=== PATIENT | female | born 1940 | race Caucasian/White ===

== ENCOUNTER 2017-09-03 11:00 | Outpatient (RCR) | payer MEDICARE, SELFPAY | END 2017-09-24 11:06 | disposition home or self-care (01) | LOC: PT 11:00 | PROVIDERS: Visit Provider Specialist | DX: S43.401A Unspecified sprain of right shoulder joint, initial encounter (principal); S43.402A Unspecified sprain of left shoulder joint, initial encounter | CPT/HCPCS: 97010; 97110; 97163 ==

== ENCOUNTER 2017-12-10 11:00 | Outpatient (RCR) | payer MEDICARE, SELFPAY | END 2017-12-27 10:37 | disposition home or self-care (01) | LOC: PT 11:00 | PROVIDERS: Visit Provider Specialist | DX: M72.2 Plantar fascial fibromatosis (principal) | CPT/HCPCS: 97033; 97035; 97110; 97140; 97163; 97164 ==

== ENCOUNTER 2025-01-19 15:26 | Emergency (ER) | payer MEDICARE, SELFPAY ==
--- OUTSIDE RECORDS SUMMARY | 2024-11-23 14:30 | XMS_ITS | Encounter Summary ---
Author Organization [employer] ([place], [place], [place], [place]) Address [address] [place] [address] Care Team Providers Care Animal Nurse Name Role Phone Marilee Angeles MD Unavailable [phone] Christopher Santos APRN Primary Care Provider [phone] Reason for Referral * Consultation (Routine) - Authorized Specialty Diagnoses / Procedures Referred By Osiel garsia Referred To Contact Physical Therapy Diagnoses Neck strain Christopher Santos APRN [address] [place] [address] Phone: tel: fax: [facility] OP Physical Therapy [address] [place] [phone] Phone: tel: fax: Referral ID Status Reason Start Date Expiration Date Visits Requested Visits Authorized [id number] Authorized Specialty Services Required 11/23/2024 11/23/2025 1 1 Reason for Visit * Reason Comments Follow-up Patient is here toda y for a 3 week follow up.PHQ: 0 Encounter Details Date Type Department Care Team (Latest Contact Info) Description 11/23/2024 2:30 PM EDT Office Visit [facility] Primary Care - [facility] [address] [place] [address] Christopher Santos APRN [address] [place] [address] Polyarthropathy (Primary Dx); Muscle strain; Type 2 diabetes mellitus without complications (HCC); Chronic kidney disease, stage 3b (HCC); Gait instability; Left hip pain; Primary hypertension; Neck strain Social History Tobacco Use Types Packs/Day Years Used Date Smoking Tobacco: Never Smokeless Tobacco: Never Alcohol Use Standard Drinks/Week Comments Never 0 (1 standard drink = 0.6 oz pur e alcohol) Caffeine use Utilities Answer Date Recorded In the past 12 months, has t he electric, gas, oil, or water company threatened to shut off services in your home? No 07/26/2023 Food Insecurity Answer Date Recorded Within the past 12 months, y ou worried that your food would run out before you got money to buy more. Never true 07/26/2023 Within the past 12 months, t he food you bought just didn't last and you didn't have money to get more. Never true 07/26/2023 Transportation Needs Answer Date Record ed In the past 12 months, has l ack of reliable transportation kept you from medical appointments, meetings, work or from getting things needed for daily living? No 07/26/2023 Financial Resource Strain Answer Date R ecorded How hard is it for you to pa y for the very basics like food, housing, medical care, and heating? Would you say it is: Not hard at all 07/26/2023 Employment Answer Date Recorded Do you want help finding or keeping work or a job? I do not need or want help 07/26/2023 Family and Community Support Answer Kip e Recorded If for any reason you need h elp with day-to-day activities such as bathing, preparing meals, shopping, managing finances, etc., do you get the help you need? I get all the help I need 07/26/2023 Feeling Lonely or Isolated 0 07/25 Educational Attainment Answer Date Donis rded Do you speak a language other than Bulgarian at ho me? No 07/26/2023 Do you want help with school or training? For example, starting or completing job training or getting a high school diploma, GED or equivalent. No 07/26/2023 Physical Activity Answer Date Recorded Number of minutes of exercise per week 0 07/26/2023 Substance Use Answer Date Recorded How many times in the past y ear have you used prescription drugs for non-medical reasons? Never 07/26/2023 How many times in the past year have you used il legal drugs? Never 07/26/2023 Comments No Sex and Gender Information Value Date Recorded Sex Assigned at Female 05/29/2023 7:28 AM LOAN DOCUMENTATION SPECIALIST Legal Sex Female 5:18 PM CDT Gender Identity Female 05/29/2023 7:28 AM LOAN DOCUMENTATION SPECIALIST Sexual Orientation Not on file documented as of this encounter Last Filed Vital Signs Vital Sign Reading Time Taken Comments Blood Pressure 146/74 11/23/2024 2:21 PM EDT Pulse 84 11/23/2024 2:21 PM EDT Temperature - - Respiratory Rate - - Oxygen Saturation 97% 11/23/2024 2:21 PM EDT Inhaled Oxygen Concentration - - Weight 72.6 kg (160 lb) 11/23/2024 2:21 PM EDT Height 154.9 cm (5' 1 ) 11/23/2024 2:21 PM EDT Body Mass Index 30.23 11/23/2024 2:21 PM EDT documented in this encounter Functional Status * Over the past 2 weeks, how often have you been bothered by any of the following problems? Question Answer Date of Assessment Author Little interest or pleasure in doing things Not at all 11/23/2024 2:26 PM CDT Jace Emery Feeling down, depressed, or hopeless Not at all 11/23/2024 2:26 PM CDT Jace Emery Patient Health Questionnaire -2 Score 0 11/23/2024 2:26 PM CDT Jace Emery documented as of this encounter Progress Notes * Christopher Santos, ANA - 11/23/2024 2:30 PM EDT 11/23/2024 Subjective: Carol Rush is a 84 y.o. female. Chief Complaint Patient presents with Follow-up Patient is here today for a 3 week follow up. PHQ: 0 84-year-old white female here today with daughter for follow-up on left hip pain. We gave her a round of prednisone and ordered physical therapy. She patient states she is almost done with physical therapy. X-ray revealed mild arthritis. She reports that this is no longer an issue. She is more concerned today about some left-sided neck pain that has been going on for past week orso. States that Tylenol helps. She took some leftover tramadol and that did not help. Heating pad feels good but does not feel like it helps. She describes this pain as severe. States it is worse when she turns her head a certain way. States that physical therapy did some massaging and helped some. She voices concern over differentiating aches and pains and so to his daughter states it seems to move from 1 joint to the other they tell me that she has had several x-rays that show osteoarthritis. Current Outpatient Medications: biotin 10,000 mcg cap, Take 1 capsule by mouth daily., Disp: , Rfl: blood sugar diagnostic (glucose blood) strp, Test 2 to 4 Time A Day (Dx: E11.9)., Disp: 200 strip, Rfl: 2 cholecalciferol, vitamin D3, 50 mcg (2,000 unit) cap, Take 1 capsule (2,000 Units total) by mouth daily., Disp: , Rfl: famotidine (PEPCID) 40 MG tablet, Take 1 tablet (40 mg total) by mouth every night as needed for heartburn., Disp: 90 tablet, Rfl: 1 ferrous sulfate 137 mg (45 mg iron) TbER, Take by mouth., Disp: , Rfl: glyBURIDE (DIABETA) 2.5 MG tablet, Take 1 tablet (2.5 mg total) by mouth daily with breakfast., Disp: 90 tablet, Rfl: 1 lancets misc, Test 2 to 4 Times A Day (Dx: E11.9)., Disp: 200 each, Rfl: 2 lisinopriL (ZESTRIL) 40 MG tablet, Take 1 tablet (40 mg total) by mouth daily., Disp: 90 tablet, Rfl: 1 metoprolol succinate (TOPROL-XL) 50 MG 24 hr tablet, Take 1 tablet (50 mg total) by mouth daily., Disp: 30 tablet, Rfl: 1 multivitamin with minerals tablet, Take 1 tablet by mouth daily., Disp: , Rfl: omeprazole (PriLOSEC) 40 MG capsule, Take 1 capsule (40 mg total) by mouth Daily (0600)., Disp: 90 capsule, Rfl: 1 simvastatin (ZOCOR) 10 MG tablet, Take 1 tablet (10 mg total) by mouth nightly., Disp: 90 tablet, Rfl: 1 vit C,X-Wc-rnqxz-lutein-zeaxan (PreserVision AREDS-2) 250-90-40-1 mg Cap, Take 1 capsule by mouth 2(two) times daily., Disp: , Rfl: cyclobenzaprine (FLEXERIL) 5 MG tablet, Take 1 tablet (5 mg total) by mouth every 8 (eight) hours as needed for muscle spasms for up to 10 days., Disp: 30 tablet, Rfl: 0 diclofenac sodium 1 % gel, Apply 2 g topically 3 (three) times daily as needed (joint pain) for up to 180 days., Disp: 100 g, Rfl: 1 Review of Systems Constitutional: Negative. Respiratory: Negative. Cardiovascular: Negative. Gastrointestinal: Negative. Genitourinary: Negative. Musculoskeletal: Positive for arthralgias. Past Medical History: Diagnosis Date Allergic rhinitis Arthritis Colon cancer ([facility]) Diabetes mellitus ([facility]) Encounter for adjustment or management of cardiac device 05/07/2024 Encounter for adjustment or management of cardiac device 05/07/2024 GERD (gastroesophageal reflux disease) Hyperlipidemia Hypertension Macular degeneration Macular degeneration, wet ([facility]) Obstructive lung disease (generalized) ([facility]) 03/20/2022 Pacemaker SSS (sick sinus syndrome) ([facility]) Past Surgical History: Procedure Laterality Date ATRIAL CARDIAC PACEMAKER INSERTION cateracts SECTION CHOLECYSTECTOMY COLONOSCOPY,BIOPSY N/A 05/29/2023 Procedure: COLONOSCOPY, WITH BIOPSY; Surgeon: Guero Ocampo MD; Location: [facility]; Service: Gastroenterology; Laterality: N/A; COLONOSCOPY,POLYPECTOMY N/A 05/29/2023 Procedure: COLONOSCOPY, WITH POLYPECTOMY; Surgeon: Guero Ocampo MD; Location: [facility]; Service: Gastroenterology; Laterality: N/A; COLONOSCOPY,SUBMUCOSAL INJECTION N/A 05/29/2023 Procedure: COLONOSCOPY, WITH DIRECTED SUBMUCOSAL INJECTION; Surgeon: Guero Ocampo MD; Location: [facility]; Service: Gastroenterology; Laterality: N/A; tattoo used EYE SURGERY cataract INSERTION/REPLACEMENT,PACEMAKER ROBOTIC LAPAROSCOPY,COLECTOMY RIGHT Right 07/26/2023 Procedure: (ROBOTIC RT COLECTOMY); Surgeon: Earnest Spaulding MD; Location: [facility]; Service: General Surgery; Laterality: Right; IN, 2HRS(A), AGGIE REQUESTED SKIN CANCER EXCISION on face TUBAL LIGATION UPPER GASTROINTESTINAL ENDOSCOPY Family History Problem Relation Name Age of Onset Heart disease Mother Hypertension Mother Diabetes Mother Heart disease Father Cancer Sister Diabetes Sister reports that she has never smoked. She has never used smokeless tobacco. She reports that she does not drink alcohol and does not use drugs. Objective: BP (!) 146/74 (BP Location: Left arm, Patient Position: Sitting) Pulse 84 Ht 1.549 m (5' 1 ) Wt 72.6 kg (160 lb) SpO2 97% BMI 30.23 kg/m?? Body mass index is 30.23 kg/m??. Physical Exam Cardiovascular: Rate and Rhythm: Normal rate and regular rhythm. Pulmonary: Effort: Pulmonary effort is normal. Breath sounds: Normal breath sounds. Musculoskeletal: Comments: Left sided neck paravertebral muscle TTP Neurological: Mental Status: She is alert. No results found for this visit on 11/23/24 (from the past 24 hours). Assessment: Problem List Items Addressed This Visit Cardiovascular and Mediastinum Hypertension (Chronic) Other Visit Diagnoses Polyarthropathy - Primary Relevant Medications diclofenac sodium 1 % gel Other Relevant Orders Vitamin D, 25-Hydroxy TSH T4, free MURALI w/Reflex Rheumatoid factor Ab, reflex to titer Sedimentation rate CCP ANTIBODIES Muscle strain Type 2 diabetes mellitus without complications (HCC) (Chronic) Relevant Orders CBC With Diff/Platelet Comprehensive metabolic panel Hemoglobin A1c Microalbumin / creatinine urine ratio Lipid panel Chronic kidney disease, stage 3b (HCC) (Chronic) Gait instability Left hip pain Neck strain Relevant Medications cyclobenzaprine (FLEXERIL) 5 MG tablet Other Relevant Orders AMB REFERRAL TO PHYSICAL THERAPY EVALUATE, TREAT AND PLAN OF CARE Ordered her routine labs and ordered autoimmune workup. Offered to send her in some more tramadol she states that this did not help her anyways that Tylenol helps her more I also sent her in some diclofenac gel to try she has not tried that for this certain pain. Will send another referral to physical therapy for her left-sided neck strain. Return for Next Scheduled Follow Up. Christopher Santos APRN documented in this encounter Miscellaneous Notes * Addendum Note - Christopher Santos APRN - 11/23/2024 2:30 PM EDTAddended by: CHRISTOPHER SANTOS on: 11/23/2024 03:14 PM Modules accepted: Orders documented in this encounter Plan of Treatment Upcoming Encounters Date Type Department Care Team (Late st Contact Info) Description 03/01/2025 10:00 AM EST Appointment [facility] Ultrasound [address] [place] [address] Guero Ocampo MD [address] [facility] [address] [place] [address] 03/23/2025 10:30 AM EST Office Visit [facility] Gastroenterology [address] [place] [address] Guero Ocampo MD [address] [facility] [address] [place] [address] 04/19/2025 1:45 PM EST Office Visit [facility] Primary Care - [facility] [address] [place] [phone] Christopher Santos APRN [address] [place] [address] 07/19/2025 11:00 AM EDT Office Visit [facility] Cardiology - [place] [address] [place] [address] Silverio Victor MD [address] [facility] [address] [place] [address] Scheduled Referrals Name Type Priority Associated Diagnoses Orde r Schedule AMB REFERRAL TO PHYSICAL THERAPY EVALUATE, TREAT AND PLAN OF CARE Outpatient Referral Routine Neck strain Expected: 11/23/2024, Expires: 11/23/2025 documented as of this encounter Procedures Procedure Name Priority Date/Time Associated Diagnosis Comments MICROALBUMIN / CREATININE URINE RATIO Routine 11/27/2024 1:38 PM EDT Type 2 diabetes mellitus without complications (HCC) VITAMIN D, 25-HYDROXY Routine 11/27/2024 1:38 PM EDT Polyarthropathy SEDIMENTATION RATE Routine 11/27/2024 1: 38 PM EDT Polyarthropathy TSH Routine 11/27/2024 1:38 PM EDT Polyarthropathy T4, FREE Routine 11/27/2024 1:38 PM EDT Polyarthropathy HEMOGLOBIN A1C Routine 11/27/2024 1:38 PM EDT Type 2 diabetes mellitus without complications (HCC) LIPID PANEL Routine 11/27/2024 1:38 PM EDT Type 2 diabetes mellitus without complications (HCC) COMPREHENSIVE METABOLIC PANEL Routine 11/27/2024 1:38 PM EDT Type 2 diabetes mellitus without complications (HCC) documented in this encounter Results * (ABNORMAL) Sedimentation rate (11/27/2024 1:38 PM EDT) Sed Rate 51(H) 0 - 30 mm/HR 11/27/2024 2:22 PM EDT [facility] Blood Venipuncture / Unknown 11/27/2024 1:38 PM EDT 11/27/2024 1:39 PM EDT Christopher Santos APRN LAB BLOOD ORDERABLES Final Result [facility] [address] [place] [address] [phone] * T4, free (11/27/2024 1:38 PM EDT) Free T4 0.95 0.70 - 1.48 ng/dL 11/28/2024 12:16 AM EDT [facility] Blood Venipuncture / Unknown 11/27/2024 1:38 PM EDT 11/27/2024 1:39 PM EDT Christopher Rajan PEREZ LAB BLOOD ORDERABLES Final Result Performing Organization Address [facility]/ZIP Co de Phone Number [facility] [address] [place], [place] [address] [phone] * TSH (11/27/2024 1:38 PM EDT) TSH 0.607 0.360 - 3.740 uIU/mL 11/27/2024 2:32 PM EDT [facility] Blood Venipuncture / Unknown 11/27/2024 1:38 PM EDT 11/27/2024 1:39 PM EDT Narrative [facility] - 11/27/2024 2:32 PM EDT Biotin supplements can cause clinically significant incorrect lab test results. The FDA has seen an increase in the number of reported adverse events related to biotin interference with lab tests. Christopher Rajan PEREZ LAB BLOOD ORDERABLES Final Result Performing Organization Address [facility] Co de Phone Number [facility] [address] [place] [address], [facility] [phone] * (ABNORMAL) Vitamin D, 25-Hydroxy (11/27/2024 1:38 PM EDT) Vitamin D 25-Hydroxy 81.56(H) 30 - 80 ng/mL 11/28/2024 12:16 AM EDT [facility] Blood Venipuncture / Unknown 11/27/2024 1:38 PM EDT 11/27/2024 1:39 PM EDT Christopher Rajan PEREZ LAB BLOOD ORDERABLES Final Result Performing Organization Address City/[facility]/ZIP Co de Phone Number [facility] [address] [place], [place] [address] [phone] * (ABNORMAL) Lipid panel (11/27/2024 1:38 PM EDT) Triglycerides 154(H) 15 - 150 mg/dL 11/27/2024 2:32 PM EDT [facility] Cholesterol 151 50 - 200 mg/dL 11/27/2024 2:32 PM EDT [facility] Comment: 200 to 239 mg/dL = Moderate (borderline) >239 mg/dL = High HDL Cholesterol 54 40 - 60 mg/dL 11/27/2024 2:32 PM EDT [facility] Comment: >=60 mg/dL = Desirable <40 mg/dL = Increased Risk All other components are listed individually or are calculations VLDL Cholesterol 30.8 mg/dL 11/28/19 25 2:32 PM EDT [facility] Cholesterol/HDL ratio 2.8 mg/dL 11/27/2024 2:32 PM EDT [facility] LDl/HDL Ratio 1 11/27/2024 2:32 PM EDT [facility] LDL Cholesterol, Calculated 66 mg/dL 11/27/2024 2:32 PM EDT [facility] Blood Venipuncture / Unknown 11/27/2024 1:38 PM EDT 11/27/2024 1:39 PM EDT Christopher Santos APRN LAB BLOOD ORDERABLES Final Result [facility] [address] [id number] [phone] * Microalbumin / creatinine urine ratio (11/27/2024 1:38 PM EDT) Creatinine, Ur 76.00 47.00 - 110.00 mg/dL 11/27/2024 11:46 PM EDT [facility] Microalbumin, Urine <5 See Comments mg/L 11/27/2024 11:46 PM EDT [facility] Comment:No normal reference ranges established for random urine. Microalbumin Creatinine Ratio, Random <7 0 - 30 mg/g 11/27/2024 11:46 PM EDT [facility] Urine URINE SPECIMEN COLLECTION, CLEAN CATCH / Unknown 11/27/2024 1:38 PM EDT 11/27/2024 1:39 PM EDT Christopher Santos APRN URINE ORDERABLES Final Res ult Performing Organization Address [facility] Co de Phone Number [facility] [address] [phone] * (ABNORMAL) Hemoglobin A1c (11/27/2024 1:38 PM EDT) Hemoglobin A1C 6.2(H) 4.0 - 5.6 % 11/27/2024 11:45 PM EDT [facility] Comment: Hemoglobin A1C levels are related to mean glucose during the preceding 2-3 months. Less than 7% demonstrates glycemic control in diabetic patients. Hemoglobin AlC % Suggested Diagnosis > or = 6.5 Diabetic 5.7 - 6.4 Prediabetic <5.7 Non-diabetic eAVG Glucose 131.24(H) 70 - 126 mg/dL 11/27/2024 11:45 PM EDT [facility] Blood Venipuncture / Unknown 11/27/2024 1:38 PM EDT 11/27/2024 1:39 PM EDT Christopher Santos SUBWAY OPERATOR LAB BLOOD ORDERABLES Final Result Performing Organization Address [facility] Co de Phone Number [facility] [address] [phone] * (ABNORMAL) Comprehensive metabolic panel (11/27/2024 1:38 PM EDT) Sodium 140 136 - 145 meq/L 11/27/2024 2:32 PM EDT [facility] Potassium 4.3 3.5 - 5.1 meq/L 11/27/2024 2:32 PM EDT [facility] Chloride 108(H) 98 - 107 meq/L 11/27/2024 2:32 PM EDT [facility] CO2 28 21 - 32 meq/L 11/27/2024 2:32 PM EDT [facility] Calcium 8.9 8.5 - 10.1 mg/dL 11/27/2024 2:32 PM EDT [facility] Glucose 117(H) 74 - 100 mg/dL 11/27/2024 2:32 PM EDT [facility] BUN 38(H) 7 - 18 mg/dL 11/27/2024 2:32 PM EDT [facility] Creatinine 1.24(H) 0.55 - 1.10 mg/dL 11/27/2024 2:32 PM EDT [facility] BUN/Creatinine 31 11/27/2024 2:32 PM EDT [facility] Albumin 2.8(L) 3.4 - 5.0 g/dL 11/27/2024 2:32 PM EDT [facility] Alkaline Phosphatase 154(H) 46 - 116 U/L 11/27/2024 2:32 PM EDT [facility] ALT 45 12 - 78 U/L 11/27/2024 2:32 PM EDT [facility] AST 37 15 - 37 U/L 11/27/2024 2:32 PM EDT [facility] Total Bilirubin 0.4 0.2 - 1.0 mg/dL 11/27/2024 2:32 PM EDT [facility] Protein, Total 6.7 6.4 - 8.2 gm/dL 11/27/2024 2:32 PM EDT [facility] Anion Gap 8(L) 11 - 22 11/27/2024 2:32 PM EDT [facility] A/G Ratio 0.7 11/27/2024 2:32 PM EDT [facility] Globulin 3.9 g/dL 11/27/2024 2:32 PM EDT [facility] Osmolality Calc 289.5 mOsm/kg 2:32 PM EDT [facility] eGFR (mL/min/1.73m2) 43(L) >=60 mL/min/1.7 3m2 11/27/2024 2:32 PM EDT [facility] Comment:ESTIMATED GFR IS NOT ACCURATE CREATININE CLEARANCE IN PREDICTING GLOMERULAR FILTRATION RATE. ESTIMATED GFR IS NOT APPLICABLE FOR DIALYSIS PATIENTS. Blood Venipuncture / Unknown 11/27/2024 1:38 PM EDT 11/27/2024 1:39 PM EDT us Christopher Santos SUBWAY OPERATOR LAB BLOOD ORDERABLES Final Result [facility] [address] [id number], [facility] [phone] documented in this encounter Visit Diagnoses Diagnosis Polyarthropathy- Primary Unspecified polyarthropathy or polyarthritis, site unspecified Muscle strain Unspecified site of sprain and strain Type 2 diabetes mellitus without complications (HCC) Chronic kidney disease, stage 3b (HCC) Gait instability Abnormality of gait Left hip pain Pain in joint, pelvic region and thigh Primary hypertension Unspecified essential hypertension Neck strain documented in this encounter Care Teams Animal Nurse Relationship Specialty Start Date End Date Christopher Santos APRN [address] [place] [address] PCP - General Family Medicine 07/15/24 Marilee Angeles MD [address] [place] [address] [place], [place] [id number] Medical Oncologist Hematology and Oncology 08/19/23 documented as of this encounter
--- OUTSIDE RECORDS SUMMARY | 2024-11-27 15:00 | XMS_ITS | Encounter Summary ---
Author Organization [employer] ([place], [place], [place], [place]) Address [address] [place] [address] Care Team Providers Care Mine Expert Name Role Phone Marilee Angeles MD Unavailable [phone] Keisha Tolentino APRN Primary Care Provider [phone] Encounter Details Date Type Department Care Team (Latest Contact Info) Description 11/27/2024 3:00 PM EDT Lab Patient Walk-In [facility] [address] [place] [phone] Elevated alkaline phosphatase level (Primary Dx) Social History Tobacco Use Types Packs/Day Years Used Date Smoking Tobacco: Never Smokeless Tobacco: Never Alcohol Use Standard Drinks/Week Comments Never 0 (1 standard drink = 0.6 oz pur e alcohol) Caffeine use Utilities Answer Date Recorded In the past 12 months, has t he ttwick, gas, oil, or water company threatened to [...] Do you speak a language other than Greenlandic at [facility]? No 07/26/2023 Do you want help with [...] Sex Assigned at Female 05/29/2023 7:28 AM MUSIC ARTIST Legal Sex Female 5:18 PM CDT Gender Identity Female 05/29/2023 7:28 AM MUSIC ARTIST Sexual Orientation Not on file documented as of this encounter Miscellaneous Notes * Result Encounter Note - Jace Emery - 11/27/2024 3:00 PM EDT Patient informed of results during clinic encounter/telephone encounter. Patient stated that she will do the B-12 Folate and SPEP labs. documented in this encounter Plan of Treatment Upcoming Encounters Date Type Department Care Team (Late st Contact Info) Description 03/01/2025 10:00 AM EST Appointment [facility] Ultrasound [address] [place] [address] Guero Ocampo MD [address] [facility] [address] [place] [address] 03/23/2025 10:30 AM EST Office Visit [facility] Gastroenterology [address] [place] [address] Guero Ocampo MD [address] [facility] [address] [place] [address] 04/19/2025 1:45 PM EST Office Visit [facility] Primary Care - [facility] [address] [place] [address] Keisha Tolentino APRN [address] [place] [address] 07/19/2025 11:00 AM EDT Office Visit [facility] Cardiology - [place] [address] [place] [phone] Silverio Victor MD [address] [facility] [address] [place] [address] documented as of this encounter Procedures Procedure Name Priority Date/Time Associated Diagnosis Comments SEDIMENTATION RATE Routine 11/27/2024 1: 38 PM EDT Polyarthropathy T4, FREE Routine 11/27/2024 1:38 PM EDT Polyarthropathy TSH Routine 11/27/2024 1:38 PM EDT Polyarthropathy LIPID PANEL Routine 11/27/2024 1:38 PM EDT Type 2 diabetes mellitus without complications (HCC) MICROALBUMIN / CREATININE URINE RATIO Routine 11/27/2024 1:38 PM EDT Type 2 diabetes mellitus without complications (HCC) HEMOGLOBIN A1C Routine 11/27/2024 1:38 PM EDT Type 2 diabetes mellitus without complications (HCC) COMPREHENSIVE METABOLIC PANEL Routine 11/27/2024 1:38 PM EDT Type 2 diabetes mellitus without complications (HCC) VITAMIN D, 25-HYDROXY Routine 11/27/2024 1:38 PM EDT Polyarthropathy CYCLIC CITRULLINATED PEPTIDE (CCP) IGG/A (SENDOUT) Routine 11/27/2024 1:38 PM EDT Elevated alkaline phosphatase level CBC W/ AUTO DIFF Routine 11/27/2024 1:38 PM EDT Elevated alkaline phosphatase level RHEUMATOID FACTOR(SENDOUT) Routine 11/27/2024 1:38 PM EDT Elevated alkaline phosphatase level MURALI REFLEXIVE PROFILE(SENDOUT) Routine 11/27/2024 1:38 PM EDT Elevated alkaline phosphatase level documented in this encounter Results * Cyclic Citrullinated Peptide (CCP) IgG/A (SENDOUT) (11/27/2024 1:38 PM EDT) [facility] Cyclic Citrullinated Peptide Ab, IgG/A 6 0 - 19 Units 11/29/2024 4:26 AM EDT [employer] Comment: INTERPRETIVE INFORMATION: Cyclic Citrullinated Peptide Ab, IgG/A 19 Units or less ................... Negative 20-39 Units ........................ Weak Positive 40-59 Units ........................ Moderate Positive 60 Units or greater ................ Strong Positive A positive result for cyclic citrullinated peptide (CCP) antibodies in conjunction with consistent clinical features may be suggestive of rheumatoid arthritis (RA). Anti-CCP, IgG/IgA antibodies are present in about 66-74 percent of RA patients and have specificities of 96-99 percent. Detection of IgA antibodies in addition to the usual IgG antibodies enhances the sensitivity due to some RA patients having IgA antibodies to CCP in the absence of IgG. These autoantibodies may be present in the preclinical phase of disease, are associated with future RA development, and may predict radiographic joint destruction. Patients with weak positive results should be monitored and testing repeated. Performed By: [employer] [address] [place] [address] Educational Program Director: Jacinto Wolfe MD, PhD CLIA Number: [id number] Blood Venipuncture / Unknown 11/27/2024 1:38 PM EDT 11/27/2024 1:39 PM EDT Keisha Tolentino APRN LAB BLOOD ORDERABLES Final Result Performing Organization Address [facility] de Phone Number [address] [phone] * Rheumatoid Factor(SENDOUT) (11/27/2024 1:38 PM EDT) Pathologist [facility] Rheumatoid Factor <10 0 - 14 IU/mL 11/29/2024 2:31 AM EDT [employer] Comment: Performed By: [facility] [address] [place] [address] Educational Program Director: Jacinto Wolfe MD, PhD CLIA Number: [id number] Blood Venipuncture / Unknown 11/27/2024 1:38 PM EDT 11/27/2024 1:39 PM EDT Keisha Tolentino APRN LAB BLOOD ORDERABLES Final Result Performing Organization Address [facility] de Phone Number [address] [phone] * MURALI Reflexive Profile(SENDOUT) (11/27/2024 1:38 PM EDT) Anti-Nuclear Ab (MURALI), IgG by SANTIAGO None Detected None Detected 11/29/2024 6:02 AM EDT [employer] Comment: No Anti-Nuclear Antibodies (MURALI) detected by SANTIAGO. The Extractable Nuclear Antigen Antibodies (CONTINUOUS IMPROVEMENT INTERN, Sharif, SSA 52, SSA 60, Scleroderma, Osiris-1 and SSB) and Double Stranded DNA (dsDNA) Antibody, IgG will not be performed. If suspicion of connective tissue disease is strong, and MURALI is negative by [facility]ANTIAG[facility], consider testing for MURALI by IFA ([id number]). INTERPRETIVE INFORMATION: Anti-Nuclear Antibodies (MURALI), IgG by [facility]ANTI[facility] Antinuclear Antibodies (MURALI), IgG by SANTIAGO: MURALI specimens are screened using enzyme-linked immunosorbent assay (SANTIAGO) methodology. All [facility]ANTIAGO results reported as Detected are further tested by indirect fluorescent assay (IFA) using HEp-2 substrate with an IgG-specific conjugate. The MURALI SANTIAGO screen is designed to detect antibodies against dsDNA, histones, SS-A (Ro), SS-B (La), Sharif, Sharif/CONTINUOUS IMPROVEMENT INTERN, Scl-70, Osiris-1, centromeric proteins, other antigens extracted from the HEp-2 cell nucleus. MURALI SANTIAGO assays have been reported to have lower sensitivities than MURALI IFA for systemic autoimmune rheumatic diseases (SARD). Negative results do not necessarily rule out SARD. Performed By: [facility] [address] [place] [address] Educational Program Director: Jacinto Wolfe MD, PhD CLIA Number: [id number] Blood Venipuncture / Unknown 11/27/2024 1:38 PM EDT 11/27/2024 1:39 PM EDT Keisha Tolentino APRN LAB BLOOD ORDERABLES Final Result [employer] [address] [place] [address], [facility] [phone] * (ABNORMAL) CBC with automated diff (11/27/2024 1:38 PM EDT) WBC 5.2 4.8 - 10.8 K/ L 11/27/2024 1:57 PM EDT [facility] RBC 3.18(L) 3.50 - 5.20 M/ L 11/27/2024 1:57 PM EDT [facility] Hemoglobin 11.1(L) 11.7 - 15.8 GM/DL 11/27/2024 1:57 PM EDT [facility] Hematocrit 33.9(L) 35.0 - 47.0 % 11/27/2024 1:57 PM EDT [facility] MCV 107(H) 81 - 101 fL 11/27/2024 1:57 PM EDT [facility] MCH 34.9(H) 27.0 - 34.0 pg 11/27/2024 1:57 PM EDT [facility] MCHC 32.7 32.0 - 36.0 GM/DL 11/27/2024 1:57 PM EDT [facility] RDW 12.8 11.5 - 14.5 % 11/27/2024 1:57 PM EDT [facility] Platelets 113(L) 150 - 400 K/CU MM 11/27/2024 1:57 PM EDT [facility] MPV 10.4 9.4 - 12.4 fL 11/27/2024 1:57 PM EDT [facility] Nucleated Red Blood Cell 0.0 0 - 0.2 % 11/27/2024 1:57 PM EDT [facility] % Neutros 40 37 - 80 % 11/27/2024 1:57 PM EDT [facility] % Lymphs 45 10 - 50 % 11/27/2024 1:57 PM EDT [facility] % Monos 9 5 - 13 % 11/27/2024 1:57 PM EDT [facility] % Eos 4 0 - 7 % 11/27/2024 1:57 PM EDT [facility] % Baso 1 0 - 3 % 11/27/2024 1:57 PM EDT [facility] NRBC Absolute <0.01 0 - 0.012 K/ul 11/27/2024 1:57 PM EDT [facility] # Neutros 2.09 2.00 - 6.90 K/ L 11/27/2024 1:57 PM EDT [facility] # Lymphs 2.35 0.60 - 3.40 K/ L 11/27/2024 1:57 PM EDT [facility] # Monos 0.48 0.00 - 0.90 K/ L 11/27/2024 1:57 PM EDT [facility] # Eos 0.21 0.00 - 0.70 K/ L 11/27/2024 1:57 PM EDT [facility] # Baso 0.03 0.00 - 0.20 K/ L 11/27/2024 1:57 PM EDT [facility] Immature Granulocytes-Re lative 0.40 % 11/27/2024 1:57 PM EDT [facility] # IG 0.02(H) 0.00 - 0.00 K/uL 11/27/2024 1:57 PM EDT [facility] Blood Venipuncture / Unknown 11/27/2024 1:38 PM EDT 11/27/2024 1:39 PM EDT Narrative [facility] - 11/27/2024 1:57 PM EDT When CBC w/ Auto Diff is ordered the lab will add a Manual Differential as a quality check at no additional charge if: Lymphocytes greater than seventy five percent with normal or increased WBC Monocytes greater than Fifteen percent Basophil greater than four percent Bands >10% or several immature myeloids are seen on scan Blast? Flag noted Atypical Lymph flag noted us Keisha Tolentino WAREHOUSE SHIPPING CLERK LAB BLOOD ORDERABLES Final Result [facility] [address] [place] [address], [facility] [phone] documented in this encounter Visit Diagnoses Diagnosis Elevated alkaline phosphatase level- Primary documented in this encounter Care Teams Mine Expert Relationship Specialty Start Date End Date Keisha Tolentino APRN [address] [place] [address] PCP - General Family Medicine 07/15/24 Marilee Angeles MD [address] [place] [address] Medical Oncologist Hematology and Oncology 08/19/23 documented as of this encounter
--- OUTSIDE RECORDS SUMMARY | 2024-11-30 15:15 | XMS_ITS | Encounter Summary ---
Author Organization [employer] ([place], [place], [place], [place]) Address [address] [place] [address] Care Team Providers Care Mercantile Agent Name Role Phone Marilee Angeles MD Unavailable [phone] Keisha Tolentino APRN Primary Care Provider [phone] Reason for Visit * Consultation (Routine) - Closed Specialty Diagnoses / Procedures Referred By Osiel garsia Referred To Contact Physical Therapy Diagnoses Left hip pain Gait instability Keisha Tolentino APRN [address] [place] [address] Phone: tel: fax: [facility] Physical Therapy [address] [place] [phone] Phone: tel: fax: Referral ID Status Reason Start Date Expiration Date V isits Requested Visits Authorized [id number] Closed Specialty Services Required 11/19/2024 12/31/2024 12 12 Encounter Details Date Type Department Care Team (Late st Contact Info) Description 11/30/2024 3:15 PM EDT Treatment [facility] Physical Therapy [address] [place] [phone] Konrad Haynes PT Left hip pain (Primary Dx); Gait instability Social History Tobacco Use Types Packs/Day Years [...] Do you speak a language other than Peruvian at [facility]? 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 Outpatient Physical Therapy Treatment Note 11/30/2024 Time In: 1513 Time Out: 1559 Carol Rush 1940 84 y.o. 1. Left hip pain 2. Gait instability Referring Physician: Keisha Tolentino APRN Insurance: Payor: [employer] - MEDICARE MGD CARE / Plan: UHC MEDICARE ADVANTAGE / Product Type: *No Product type* / SUBJECTIVE Patient reports her neck is feeling much better after going to the doctor and was given a topical medication to rub on the muscles. She notes she continues to have no pain in her L hip. Pain: 0/10 OBJECTIVE INTERVENTIONS Therapeutic Exercise Sets x Repetitions Weight/Resistance Cues/Comments HEP Squats with UE Support 3 x 10 [x] Heel Raises 3 x 10 Step Ups (B) 2 x 10 6 [address] Hip [address] (B) 15x LAQ (B) 3 x 10 2# Hamstring Curls (B) 3 x 10 RTB Balance at Jemstep 2 x 30 sec each Feet together, EO, head turns (vert/horiz), foam surface Feet together, EC, foam surface Marching, EO, foam surface SLS, EO, solid surface [] NuStep 10 min Level 6 [] Walking Balance 2 laps each Side stepping with ball pass Backwards walking With and without cognitive tasks [] Obstacle Course 4 laps Navigating over holguin ropes places on the ground Walking forwards and side stepping With and without cognitive tasks [] Ambulating while Bouncing Ball 2 laps Small green physioball With and without cognitive tasks [] Upper Trap Stretch 3 x 15 sec [] Gait belt and CGA with all walking balance activities ASSESSMENT Patient began the session on the NuStep for BLE strengthening and CV effects. Patient then performed exercises to improve BLE strength and proprioception. Therex was progressed by increasing repetitions for exercises including heel raises, LAQ and hamstring curls for improved BLE strengthening. Resistance was also increased for LAQ for improved quad strengthening. Patient also tolerated performing step ups onto a 6 inch step compared to a 4 inch step. Patient tolerated overall treatment with mild difficulty and no reports of increased pain. She reported feeling fatigued at the end of the session. Will continue to progress as tolerated. Patient will continue to benefit from skilled physical t herapy services to return to premorbid mobility, strength and overall function. PLAN Interventions: Continue Therapeutic Exercise (41530), Therapeutic Activity (69860), and Neuromuscular Re-education (29957) Prognosis: Good Patient requires follow-up: Yes Total Treatment (min): 46' Timed Treatment (min): Therapeutic Exercise (16829) 45 minutes Electronically signed: Konrad Haynes PT 11/30/2024, 4:00 PM documented in this encounter Plan of Treatment Upcoming Encounters Date Type Department Care Team (Late st Contact Info) Description 03/01/2025 10:00 AM EST Appointment [facility] Ultrasound [address] [place] [address] Guero Ocampo MD [address] [facility] [address] [place] [address] 03/23/2025 10:30 AM EST Office Visit [facility] Gastroenterology [address] [facility] [address] [place] [address] Guero Ocampo MD [address] [address] 04/19/2025 1:45 PM EST Office Visit [facility] Primary Care - [facility] [address] [place] [address] Keisha Tolentino APRN [address] [place] [address] 07/19/2025 11:00 AM EDT Office Visit [facility] Cardiology - [place] [address] [place] [phone] Silverio Victor MD [address] [facility] [address] [place] [address] documented as of this encounter Visit Diagnoses Diagnosis Left hip pain- Primary Pain in joint, pelvic region and thigh Gait instability Abnormality of gait documented in this encounter Care Teams Mercantile Agent Relationship Specialty Start Date End Date Keisha Tolentino APRN [address] [place] [address] PCP - General Family Medicine 07/15/24 Marilee Angeles MD [address] [place] [address] Medical Oncologist Hematology and Oncology 08/19/23 documented as of this encounter
--- OUTSIDE RECORDS SUMMARY | 2024-12-04 13:45 | XMS_ITS | Encounter Summary ---
Author Organization [employer] ([place], [place], [place], [place]) Address [address] [place] [address] Care Team Providers Care Director Of Casework Department Name Role Phone Marilee Angeles MD Unavailable [phone] Keisha Tolentino APRN Primary Care Provider [phone] Reason for Visit * Consultation (Routine) - Closed Specialty Diagnoses / Procedures Referred By Osiel garsia Referred To Contact Physical Therapy Diagnoses Left hip pain Gait instability Keisha Tolentino APRN [address] [place] [address] Phone: tel: fax: [facility] OP Physical Therapy [address] [place] [address] Phone: tel: fax: Referral ID Status Reason Start Date Expiration Date V isits Requested Visits Authorized [id number] Closed Specialty Services Required 11/19/2024 12/31/2024 12 12 Encounter Details Date Type Department Care Team (Late st Contact Info) Description 12/04/2024 1:45 PM EDT Treatment [facility] OP Physical Therapy [address] [place] [phone] Konrad Haynes PT Left hip pain [...] Do you speak a language other than [place]ese at [facility]? 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 Outpatient Physical Therapy Progress Note 12/04/2024 Time In: 1350 Time Out: 1437 Carol Rush 1940 84 y.o. 1. Left hip pain 2. Gait instability Referring Provider: Keisha Tolentino APRN Insurance: Payor: [employer] - MEDICARE MGD CARE / Plan: [employer]HC MEDICARE ADVANTAGE / Product Type: *No Product type* / SUBJECTIVE Patient reports she is feeling fair today. She woke up having some back pain but this went away after taking some tylenol. Pain: 0/10 Symptoms since onset: Improved OBJECTIVE Test/Measurements Hip ROM (degrees) LEFT RIGHT External Rotation 43 44 Internal Rotation 22 24 Strength Hip LEFT RIGHT Flexion 4-/5 4-/5 Abduction 4-/5 4-/5 ADDuction 4/5 4/5 External Rotation 4/5 4/5 Gait Weight bearing status: Full Assistive Device Used: None at this Time Assist Level: Independent Functional Outcome Measure: LEFS: 60/80 30 sec STS: 8 reps with hands on knees FGA: 18/30 INTERVENTIONS Therapeutic Exercise Sets x Repetitions Weight/Resistance Cues/Comments HEP Squats with UE Support 3 x 10 [x] Heel Raises 3 x 10 Step Ups (B) 2 x 10 6 inch Standing Hip 3 Way (B) 15x LAQ (B) 3 x 10 2# Hamstring Curls (B) 3 x 10 RTB Balance at Startapp 2 x 30 sec each Feet together, EO, head turns (vert/horiz), foam surface Feet together, EC, foam surface Marching, EO, foam surface SLS, EO, solid surface [] NuStep 8 min Level 6 [] Walking Balance 2 laps each Side stepping, forwards and backwards walking with ball pass With and without cognitive tasks [] Obstacle Course 4 laps Navigating over holguin ropes places on the ground Walking forwards and side stepping With and without cognitive tasks [] Ambulating while Bouncing Ball 2 laps Small green physioball With and without cognitive tasks [] Upper Trap Stretch 3 x 15 sec [] Gait belt and CGA with all walking balance activities Total Treatment (min): 47' Timed Treatment (min): Therapeutic Exercise (00899) 10 minutes Neuromuscular Re-education (08943) 20 minutes ASSESSMENT Patient is continuing to make steady improvements towards PT goals. Patient's bilateral hip ROM hasimproved for both IR and ER. Patient does note her L hip does feel more stiff during IR compared tothe R but it is better compared to her first visit. Patient's bilateral hip strength has also improved for flexion and L hip ER but still demonstrates the most weakness with bilateral hip abduction. Patient's LEFS has improved from 40/80 at her initial eval to 60/80, indicating a significant improvement in subjective LE function for completing ADLs. Patient also demonstrated a significant improvement in her 30 sec STS test as she completed 9 repetitions using BUE for assistance at her eval and was able to perform 8 repetitions with her hands on her knees today. Patient's FGA has also improvedfrom 13/30 at her initial eval to 18/30 today. This is still below the cut off score of 22/30, indicating she is at an increased risk of falls. Patient has continued to tolerate treatments with mild difficulty and no reports of increased pain. She completed walking balance tasks with multitasking activities and cognitive tasks to improve her ability to ambulate around her home and in the community. Will continue to progress as tolerated. Patient will continue to benefit from skilled physical therapy services to return to premorbid mobility, strength and overall function. PLAN Carol Rush requires skilled physical therapy services to address the below stated problems/goals, using Therapeutic Exercise (92887), Therapeutic Activity (09660), Gait Training (69955), Manual Therapy (19437), and Neuromuscular Re- education (36188). Skilled intervention required to decrease pain, increase range of motion, increase strength, improve balance, improve motor control, improve functional mobility, learn home exercise program, and return to premorbid state. Prognosis: Good Problems: Pain Decreased ROM Decreased strength Tenderness to palpation Gait deficits Decreased balance Decreased functional mobility Patient Goal: Decreased Pain Improve Mobility Improve Strength Improve Ambulation Improve Balance/Decrease Falls Resume ADL's w/o Symptoms Return to Prior Activity Level Learn Home Exercise Program Patient Education: Eval results/Plan of Care, Disease Process, Body mechanics, Fall prevention, Safety precautions, HEP, Pt/CG verbalized understanding, Pt/CG asked approp questions, Pt/CG demonstrated carry-over, and Handouts provided [employer] Consultant Goals: Patient will improve FGA score to 22/30 for decreased risk of falls and to demonstrate improved balance when ambulating in the community in 12 weeks. (Not Met, Progressin/30) Patient will complete 11 repetitions without BUE support on the 30 sec STS for improved functional endurance and mobility of her BLE for completing household tasks in 12 weeks. (Not Met, Progressin reps) Patient will improve tandem stance with the RLE in front time to 15 seconds for improved ability towalk in narrow spaces such as between the bed and the wall in her house in 12 weeks. (Not assessed today) Patient will demonstrate 4+/5 bilateral hip flexion and abduction strength for improved strength for getting into and out of her car in 12 weeks. (Not Met, Progressing: see objective above) Patient will report worst L hip pain as 4/10 for improved ability to sleep at night in 12 weeks. (Goal Met) Patient will be independent with discharge home exercise program to improve self-care ADL's and household ADL's. (Not Met, Progressing throughout POC) Plan of Care Certification Date: 11/05/2024 - 01/27/2025 Frequency/Duration: 2x/Week for 12 weeks Electronically signed by: Konrad Haynes PT 12/04/2024, 3:08 PM documented in this encounter Plan of Treatment Upcoming Encounters Date Type Department Care Team (Late st Contact Info) Description 03/01/2025 10:00 AM EST Appointment [facility] Ultrasound [address] [place] [phone] Guero Ocampo MD [address] [facility] [address] [place] [address] 03/23/2025 10:30 AM EST Office Visit [facility] Gastroenterology [address] [place] [address] Guero Ocampo MD [address] [facility] [address] [place] [address] 04/19/2025 1:45 PM EST Office Visit [facility] Primary Care - [facility] [address] [place] [address] Keisha Tolentino APRN [address] [place] [address] 07/19/2025 11:00 AM EDT Office Visit [facility] Cardiology - [place] [address] [place] [address] Silverio Victor MD [address] [facility] [address] [place] [address] documented as of this encounter Visit Diagnoses Diagnosis Left hip pain- Primary Pain in joint, pelvic region and thigh Gait instability Abnormality of gait documented in this encounter Care Teams Director Of Casework Department Relationship Specialty Start Date End Date Keisha Tolentino APRN [address] [place] [address] PCP - General Family Medicine 07/15/24 Marilee Angeles MD [facility] [address] [address] Medical Oncologist Hematology and Oncology 08/19/23 documented as of this encounter
--- OUTSIDE RECORDS SUMMARY | 2024-12-07 07:40 | XMS_ITS | Encounter Summary ---
Author Organization [facility] Address [address] [place] [address] Care Team Providers Care Forest Manager Name Role Phone Dre William MD Primary Care Provider [phone] Encounter Details Date Type Department Care Team (Late st Contact Info) Description 12/07/2024 7:40 AM EDT Ancillary Procedure [facility] [address] [place] [address] Social History Tobacco Use Types Packs/Day Years Used Date Smoking Tobacco: Never Passive Smoke Exposure: Never Smokeless Tobacco: Never Alcohol Use Standard Drinks/Week Comments No 0 (1 standard drink = 0.6 oz pur e alcohol) Comments Unknown Sex and Gender Information Value Date Recorded Sex Assigned at Not on file Legal Sex Female 7:52 PM EDT Gender Identity Not on file Sexual Orientation Not on file documented as of this encounter Plan of Treatment Upcoming Encounters Date Type Department Care Team (Late st Contact Info) Description 02/08/2025 12:45 PM EDT Procedure Visit [facility] [address] [place] [address] King Sánchez MD [address] [address] documented as of this encounter Procedures Procedure Name Priority Date/Time Associated Diagnosis Comments OCT, RETINA - OU - BOTH EYES Routine 12/07/2024 1:08 PM EDT Exudative age-related macular degeneration of both eyes with active choroidal neovascularization (CMS/HCC) documented in this encounter Results * OCT, Retina - OU - Both Eyes (12/07/2024 1:08 PM EDT) Anatomical Region Laterality Modality Head Optical Coherenc e Tomography Narrative 12/07/2024 1:08 PM EDT Right Eye Quality was good. Scan locations included subfoveal. Progression has been stable. Left Eye Quality was good. Scan locations included subfoveal. Progression has been stable. Notes Right eye central FVPED with resolved Subretinal Hyper Reflective material, improved IRF, several drusen and reticular drusen. Left eye (OS) Several drusen and reticular drusen, resolved Intraretinal fluid, increased Subretinal Hyper Reflective material Both eyes (OU) Incomplete outer retinal atrophy King Sánchez MD OPHTH TOMOGRAPHY Final Result documented in this encounter Visit Diagnoses Not on filedocumented in this encounter Additional Health Concerns Assessment Noted Time A fall risk assessment has been complete d for the patient 10/20/2024 9:12 AM EDT A Body Mass Index follow-up plan has been documented for the patient 12/07/2024 1:20 PM EDT documented as of this encounter Care Teams Forest Manager Relationship Specialty Start Date End Date rDe William MD [address] [place] [address] PCP - General 08/26/20 documented as of this encounter
--- OUTSIDE RECORDS SUMMARY | 2024-12-07 12:45 | XMS_ITS | Encounter Summary ---
Author Organization [facility] Address [address] [place] [address] Care Team Providers Care Stroke Coordinator Name Role Phone Dre William MD Primary Care Provider [phone] Reason for Referral * Clinic-Administered Medication (Routine) - Authorized Specialty Diagnoses / Procedures Referred By Osiel garsia Referred To Contact Diagnoses Exudative age-related macular degeneration of both eyes with active choroidal neovascularization (CMS/HCC) Procedures WI INJECTION, AFLIBERCEPT HD, 1 MG King Sánchez MD [address] [address] Phone: tel: fax: Referral ID Status Reason Start Date Expiration Date V isits Requested Visits Authorized [id number] Authorized 12/07/2024 06/08/202605 08 * Clinic-Administered Medication (Routine) - Authorized Specialty Diagnoses / Procedures Referred By Osiel garsia Referred To Contact Diagnoses Exudative age-related macular degeneration of both eyes with active choroidal neovascularization (CMS/HCC) Procedures WI INJECTION, AFLIBERCEPT HD, 1 MG King Sánchez MD [address] [place] [phone] Phone: tel: fax: Referral ID Status Reason Start Date Expiration Date V isits Requested Visits Authorized [id number] Authorized 12/07/2024 06/08/2026 24 Encounter Details Date Type Department Care Team (Latest Contact Info) Description 12/07/2024 12:45 PM EDT Procedure Visit [facility] [address] [place] [address] King Sánchez MD [address] [place] [address] Exudative age-related macular degeneration of both eyes with active choroidal neovascularization (CMS/HCC) (Primary Dx); Branch retinal vein occlusion of left eye with macular edema; Pseudophakia of both eyes Social History Tobacco Use Types Packs/Day Years [...] as of this encounter Miscellaneous Notes * Progress Notes - King Sánchez MD - 12/07/2024 12:45 PM EDT Visit Diagnosis: 1. Exudative age-related macular degeneration of both eyes with active choroidal neovascularization(CMS/HCC) OCT, Retina - OU - Both Eyes, Intravitreal Injection, Pharmacologic Agent - OU - Both Eyes, Aflibercept (Eylea HD) intravitreal injection 8 mg, Aflibercept (Eylea HD) intravitreal injection8 mg 2. Branch retinal vein occlusion of left eye with macular edema 3. Pseudophakia of both eyes Clinic Note: Carol Rush is a 84 y.o. female who presents to the clinic today for the follow up of Right eye (OD) Exudative age-related macular degeneration (AMD) - FVPED with Subretinal Hyper Reflective material without Intraretinal fluid or subretinal fluid (SRF) - Leakage noted on intravenous fluorescein angiography (IVFA) 03/25/23 - status post (s/p) multiple IntraVitreal Avastin, last 01/13/24, - status post (s/p) multiple Intravitreal Eylea last 06/30/24 - status post (s/p) Intravitreal Eylea HD 09/01/24, 10/20/24 - visual acuity (VA) 20/80-->20/60 (stable) - OCT no fluid, Choroidal Neovascular Membrane - right eye (OD) Intravitreal Eylea HD done at 7 weeks - Xtend to 9 weeks Left eye (OS) Exudative age-related macular degeneration (AMD) Left eye (OS) Branch Retinal Vein Occlusion - Drusen and Pseudodrusen, iORA - Intravenous fluorescein angiography (IVFA) 01/13/24 showed leakage - status post (s/p) IntraVitreal Avastin 01/13/24 - status post (s/p) multiple Intravitreal Eylea last 09/01/24 - status post (s/p) Intravitreal Eylea HD 10/20/24 - visual acuity (VA) reduced to 20/60 - OCT improved Subretinal Hyper Reflective material, no Intraretinal fluid, ? Choroidal NeovascularMembrane - left eye (OS) Intravitreal Eylea HD done at 7 weeks - Xtend to 9 weeks Follow up in about 9 weeks (around 02/08/2025) for Dilated Exam OU, OCT, Injection. Patient expressed understanding of the diagnoses, plan, and follow up. Thanks for involving Retina / Ocular Oncology services at [facility] in the care. Tobacco Cessation Initiative: Tobacco Use: Low Risk (12/07/2024) Patient History Smoking Tobacco Use: Never Smokeless Tobacco Use: Never Passive Exposure: Never The patient has been counseled on tobacco cessation: Not Applicable documented in this encounter Plan of Treatment Upcoming Encounters Date Type Department Care Team (Late st Contact Info) Description 02/08/2025 12:45 PM EDT Procedure Visit [facility] [address] [place] [address] King Sánchez MD [address] [address] documented as of this encounter Procedures Procedure Name Priority Date/Time Associated Diagnosis Comments INTRAVITREAL INJECTION, PHARMACOLOGIC AGENT - OU - BOTH EYES Routine 12/07/2024 1:20 PM EDT Exudative age-related macular degeneration of both eyes with active choroidal neovascularization (CMS/HCC) OCT, RETINA - OU - BOTH EYES Routine 12/07/2024 1:08 PM EDT Exudative age-related macular degeneration of both eyes with active choroidal neovascularization ([facility]/HCC) documented in this encounter Results * Intravitreal Injection, Pharmacologic Agent - OU - Both Eyes (12/07/2024 1:20 PM EDT) Anatomical Region Laterality Modality Head Other Narrative 12/07/2024 1:20 PM EDT Time Out 12/07/2024. 1:19 PM. Confirmed correct patient, procedure, site, and patient consented. Anesthesia Right Eye Topical anesthesia was used. Anesthetic medications included Proparacaine 0.5%. Left Eye Topical anesthesia was used. Anesthetic medications included Proparacaine 0.5%. Procedure Right Eye Preparation included 5% betadine to ocular surface. A 30 gauge needle was used. Injection: 8 mg Aflibercept 8 MG/0.07ML Route: Intravitreal, Site: Right Eye NDC: 67451-801-56, Lot: [id number], Expiration date: 06/12/2025, Waste: 0 mL Left Eye Preparation included 5% betadine to ocular surface. A 30 gauge needle was used. Injection: 8 mg Aflibercept 8 MG/0.07ML Route: Intravitreal, Site: Left Eye NDC: 50434-333-57, Lot: [id number], Expiration date: 07/13/2025, Waste: 0 mL Post-op Right Eye Post injection exam found visual acuity of at least counting fingers. The patient tolerated the procedure well. There were no complications. The patient received written and verbal post procedure care education. Post injection medications were not given. Left Eye Post injection exam found visual acuity of at least counting fingers. The patient tolerated the procedure well. There were no complications. The patient received written and verbal post procedure care education. Post injection medications were not given. Notes King Sánchez MD OPHTH CLINIC PROCEDURES Final R esult * OCT, Retina - OU - Both [...] Result documented in this encounter Visit Diagnoses Diagnosis Exudative age-related macular degeneration of both eyes with active choroidal neovascularization (CMS/HCC)- Primary Branch retinal vein occlusion of left eye with macular edema Pseudophakia of both eyes Lens replaced by other means documented in this encounter Administered Medications Inactive Administered Medications - up to 3 most recent administrations Medication Order MAR Action Action Date Dose Rate Site Aflibercept (Eylea HD) intravitreal injection 8 mg 8 mg, Intravitreal, Once PRN Procedure, 1 dose, Starting on Sat12/07/24 at 1320, Until Sat12/07/24 at 1320, RoutineIndications:Exudative age-related macular degeneration of both eyes with active choroidal neovascularization (CMS/HCC) Given 12/07/2024 1:20 PM EDT 8 mg Right Eye Aflibercept (Eylea HD) intravitreal injection 8 mg 8 mg, Intravitreal, Once PRN Procedure, 1 dose, Starting on 12/07/24 at 1320, Until Sat12/07/24 at 1320, RoutineIndications:Exudative age-related macular degeneration of both eyes with active choroidal neovascularization (CMS/HCC) Given 12/07/2024 1:20 PM EDT 8 mg Left Eye documented in this encounter Additional Health Concerns Assessment Noted Time A fall risk assessment has been complete d for the patient 10/20/2024 9:12 AM EDT A Body Mass Index follow-up plan has been documented for the patient 12/07/2024 1:20 PM EDT documented as of this encounter Care Teams Stroke Coordinator Relationship Specialty Start Date End Date Dre William MD [address] [place] [address] PCP - General 08/26/20 documented as of this encounter
--- OUTSIDE RECORDS SUMMARY | 2024-12-09 15:15 | XMS_ITS | Encounter Summary ---
Author Organization [employer] ([place], [place], [place], [place]) Address [address] [place] [address] Care Team Providers Care Canvas Goods Fabricator Name Role Phone Marilee Angeles MD Unavailable [phone] Keisha Tolentino APRN Primary Care Provider [phone] Reason for Visit * Consultation (Routine) - Closed Specialty Diagnoses / Procedures Referred By Osiel garsia Referred To Contact Physical Therapy Diagnoses Left hip pain Gait instability Keisha Tolentino APRN [address] [place] [address] Phone: tel: fax: [facility] OP Physical Therapy [address] [place] [address] Phone: tel: fax: Referral ID Status Reason Start Date Expiration Date V isits Requested Visits Authorized [id number] Closed Specialty Services Required 11/19/2024 12/31/2024 12 12 Encounter Details Date Type Department Care Team (Late st Contact Info) Description 12/09/2024 3:15 PM EDT Treatment [facility] OP Physical Therapy [address] [place] [phone] Konrad Haynes PT Left hip pain [...] speak a language other than Bulgarian at [facility]? No 07/26/2023 Do you want help [...] Sex Assigned at Female 05/29/2023 7:28 AM CLASSROOM COORDINATOR Legal Sex Female 5:18 PM CDT Gender Identity Female 05/29/2023 7:28 AM CLASSROOM COORDINATOR Sexual Orientation Not on file documented as of this encounter Progress Notes * Konrad Haynes, PT - 12/09/2024 3:15 PM EDT Images from the original note were not included. Outpatient Physical Therapy Treatment Note 12/09/2024 Time In: 1514 Time Out: 1607 Carol Rush 1940 84 y.o. 1. Left hip pain 2. Gait instability Referring Physician: Keisha Tolentino APRN Insurance: Payor: UNITED HE[employer] - MEDICARE MGD CARE / Plan: UHC MEDICARE ADVANTAGE / Product Type: *No Product type* / SUBJECTIVE Patient notes her L hip has been bothering her today. Pain: 1-2/10 OBJECTIVE INTERVENTIONS Therapeutic Exercise Sets x Repetitions Weight/Resistance Cues/Comments HEP STS 3 x 5 To chair, hands on knees [x] Heel Raises 3 x 10 Step Ups (B) 2 x 10 6 inch Standing Hip 3 Way (B) 20x LAQ (B) 3 x 10 2# Hamstring Curls (B) 3 x 10 GTB Balance at [employer] 2 x 30 sec each Feet together, [...] Patient then performed exercises to improve BLE strength. Therex was progressed by increasing repetitions for standing hip 3 way in addition to increasing resistance for hamstring curls to improve bilateral hip strength and stability. Squats with UE support were progressed to having patient perform STS without UE assistance. She was able to perform 3 x 5 and reported feeling very fatigued after this. Patient toleratedoverall treatment with mild difficulty and minimal reports of increased pain. Will continue to progress as tolerated. Patient will continue to benefit from skilled physical therapy services to returnto premorbid mobility, strength and overall function. PLAN Interventions: Continue Therapeutic Exercise (61758), Therapeutic Activity (85970), and Neuromuscular Re-education (76787) Prognosis: Good Patient requires follow-up: Yes Total Treatment (min): 53' Timed Treatment (min): Therapeutic Exercise (56020) 48 minutes Electronically signed: Konrad Haynes PT 12/09/2024, 9:21 PM documented in this encounter Plan of Treatment Upcoming Encounters Date Type Department Care Team (Late st Contact Info) Description 03/01/2025 10:00 AM EST Appointment [facility] Ultrasound [address] [place] [phone] Guero Ocampo MD [address] [facility] [address] [place] [address] 03/23/2025 10:30 AM EST Office Visit [facility] Gastroenterology [address] [place] [address] Guero Ocampo MD [address] [facility] [address] [place] [address] 04/19/2025 1:45 PM EST Office Visit [facility] Primary Care - [facility] [address] [place] [address] Keisha Tolentino APRN [address] [place] [address] 07/19/2025 11:00 AM EDT Office Visit [facility] Cardiology - [place] [address] [place] [address] Silverio Victor MD [address] [facility] [address] [place] [address] documented as of this encounter Visit Diagnoses Diagnosis Left hip pain- Primary Pain in joint, pelvic region and thigh Gait instability Abnormality of gait documented in this encounter Care Teams Canvas Goods Fabricator Relationship Specialty Start Date End Date Keisha Tolentino APRN [address] [place] [address] PCP - General Family Medicine 07/15/24 Marilee Angeles MD [facility] [address] [address] Medical Oncologist Hematology and Oncology 08/19/23 documented as of this encounter
--- OUTSIDE RECORDS SUMMARY | 2024-12-11 13:00 | XMS_ITS | Encounter Summary ---
Author Organization [employer] ([place], [place], [place], [place]) Address [address] [place] [address] Care Team Providers Care Fibreglass Gun Hand Name Role Phone Marilee Angeles MD Unavailable [phone] Keisha Tolentino APRN Primary Care Provider [phone] Reason for Visit * Consultation (Routine) - Closed Specialty Diagnoses / Procedures Referred By Osiel garsia Referred To Contact Physical Therapy Diagnoses Left hip pain Gait instability Keisha Tolentino APRN [address] [place] [address] Phone: tel: fax: [facility] OP Physical Therapy [address] [place] [address] Phone: tel: fax: Referral ID Status Reason Start Date Expiration Date V isits Requested Visits Authorized [id number] Closed Specialty Services Required 11/19/2024 12/31/2024 12 12 Encounter Details Date Type Department Care Team (Late st Contact Info) Description 12/11/2024 1:00 PM EDT Treatment [facility] OP Physical Therapy [address] [place] [phone] Konrad Haynes PT Left hip pain [...] Do you speak a language other than Surinamese at [facility]? No 07/26/2023 Do you want help with [...] Sex Assigned at Female 05/29/2023 7:28 AM BIOMEDICAL MANAGER Legal Sex Female 5:18 PM CDT Gender Identity Female 05/29/2023 7:28 AM BIOMEDICAL MANAGER Sexual Orientation Not on file documented as of this encounter Progress Notes * Konrad Haynes, PT - 12/11/2024 1:00 PM EDT Images from the original note were not included. Outpatient Physical Therapy Treatment Note 12/11/2024 Time In: 1302 Time Out: 1402 Carol Rush 1940 84 y.o. 1. Left hip pain 2. Gait instability Referring Physician: Keisha Tolentino APRN Insurance: Payor: UNITED HEALTHCARE - MEDICARE MGD CARE / Plan: UHC MEDICARE ADVANTAGE / Product Type: *No Product type* / SUBJECTIVE Patient reports her L hip pain is an 8-9/10 when she is walking today. She notes she has the most pain when putting weight on her heel. Pain: 8-9/10 OBJECTIVE INTERVENTIONS Therapeutic Exercise Sets x Repetitions Weight/Resistance Cues/Comments HEP STS 3 x 5 To chair, hands on knees [x] Heel Raises 2 x 10 Step Ups (B) 2 x 10 6 inch Standing Hip 3 Way (B) 20x LAQ (B) 2 x 10 2# Hamstring Curls (B) 2 x 10 GTB SLR (B) 2 x 10 BKFO 2 x 10 RTB Hip Adduction Squeeze 2 x 10 Bridges 2 x 10 LTR 2 x 10 Balance at [employer] 2 x 30 sec each Feet together, [...] then performed exercises to improve BLE strength. Exercises including SLR, BKFO, bridges and hip adduction squeezes were added for bilateral hip strengthening for improved stability around the joint. LTR were added to improve lumbar and hip mobility. Patient tolerated overall treatment with mild difficulty and minimal reports of increased pain. She reported feeling fatigued at the end of the session. Will continue to progress as tolerated. Patient will continue to benefit from skilled physical therapy services to return to premorbid mobility, strength and overall function. PLAN Interventions: Continue Therapeutic Exercise (52573), Therapeutic Activity (41657), and Neuromuscular Re-education (63107) Prognosis: Good Patient requires follow-up: Yes Total Treatment (min): 60' Timed Treatment (min): Therapeutic Exercise (38381) 60 minutes Electronically signed: Konrad Haynes PT 12/11/2024, 2:05 PM documented in this encounter Plan of Treatment Upcoming Encounters Date Type Department Care Team (Late st Contact Info) Description 03/01/2025 10:00 AM EST Appointment [facility] Ultrasound [address] [place] [address] Guero Ocampo MD 227 [facility] [address] [place] [address] 03/23/2025 10:30 AM EST Office Visit [facility] Gastroenterology [address] [facility] [address] [place] [address] Guero Ocampo MD [address] [address] 04/19/2025 1:45 PM EST Office Visit [facility] Primary Care - [facility] [address] [place] [address] Keisha Tolentino APRN [address] [place] [address] 07/19/2025 11:00 AM EDT Office Visit [facility] Cardiology - [place] [address] [place] [address] Silverio Victor MD [address] [address] documented as of this encounter Visit Diagnoses Diagnosis Left hip pain- Primary Pain in joint, pelvic region and thigh Gait instability Abnormality of gait documented in this encounter Care Teams Fibreglass Gun Hand Relationship Specialty Start Date End Date Keisha Tolentino APRN [address] [place] [address] PCP - General Family Medicine 07/15/24 Marilee Angeles MD [address] [facility] [address] [place] [address] Medical Oncologist Hematology and Oncology 08/19/23 documented as of this encounter
--- OUTSIDE RECORDS SUMMARY | 2024-12-15 15:15 | XMS_ITS | Encounter Summary ---
Author Organization [employer] ([place], [place], [place], [place]) Address [address] [place] [address] Care Team Providers Care Disbursing Officer Name Role Phone Marilee Angeles MD Unavailable Keisha Tolentino APRN Primary Care Provider [phone] Reason for Visit * Consultation (Routine) - Closed Specialty Diagnoses / Procedures Referred By Osiel garsia Referred To Contact Physical Therapy Diagnoses Left hip pain Gait instability Keisha Tolentino APRN [address] [place] [address] Phone: tel: fax: [facility] OP Physical Therapy [address] [place] [phone] Phone: tel: fax: Referral ID Status Reason Start Date Expiration Date V isits Requested Visits Authorized [id number] Closed Specialty Services Required 11/19/2024 12/31/2024 12 12 Encounter Details Date Type Department Care Team (Late st Contact Info) Description 12/15/2024 3:15 PM EDT Treatment [facility] OP Physical Therapy [address] [place] [phone] Konrad Haynes PT Left hip pain [...] Do you speak a language other than Kuwaiti at [facility]? No 07/26/2023 Do you want help [...] Sex Assigned at Female 05/29/2023 7:28 AM CUFF TURNER MACHINE OPERATOR Legal Sex Female 5:18 PM CDT Gender Identity Female 05/29/2023 7:28 AM CUFF TURNER MACHINE OPERATOR Sexual Orientation Not on file documented as of this encounter Progress Notes * Konrad Haynes, PT - 12/15/2024 3:15 PM EDT Images from the original note were not included. Outpatient Physical Therapy Treatment Note 12/15/2024 Time In: 1515 Time Out: 1611 Carol Rush 1940 84 y.o. 1. Left hip pain 2. Gait instability Referring Physician: Keisha Tolentino APRN Insurance: Payor: UNITED HEALTHCARE - MEDICARE MGD CARE / Plan: UHC MEDICARE ADVANTAGE / Product Type: *No Product type* / SUBJECTIVE Patient reports her L hip is feeling better. She has the most pain after sitting for a prolonged period of time and getting up to walk. Pain: 2-3/10 OBJECTIVE INTERVENTIONS Therapeutic Exercise Sets x Repetitions Weight/Resistance Cues/Comments HEP STS 3 x 5 To chair, hands on knees [x] Heel Raises 2 x 10 Step Ups (B) 2 x 10 6 inch Standing Hip 3 Way (B) 20x LAQ (B) 2 x 10 3# Hamstring Curls (B) 2 x 10 GTB SLR (B) 2 x 10 BKFO 2 min RTB Hip Adduction Squeeze 2 min Bridges 2 x 10 LTR 2 min Balance at [employer] 2 x 30 sec each Feet together, [...] performed exercises to improve BLE strength. Exercises were continued from last session to improve exercise tolerance. An increase in repetitions were performed for LTR, BKFO and hip adduction squeeze. Resistance was increased for LAQ for quad strengthening. Patient tolerated overall treatment with mild difficulty and minimal reports of increased pain. She reported feeling fatigued at the end of the session. Will continue to progress as tolerated. Patient will continue to benefit from skilled physical therapy services to return to premorbid mobility, strength and overall function. PLAN Interventions: Continue Therapeutic Exercise (61574), Therapeutic Activity (53747), and Neuromuscular Re-education (06861) Prognosis: Good Patient requires follow-up: Yes Total Treatment (min): 56' Timed Treatment (min): Therapeutic Exercise (08487) 56 minutes Electronically signed: Konrad Haynes PT 12/15/2024, 4:13 PM documented in this encounter Plan of Treatment Upcoming Encounters Date Type Department Care Team (Late st Contact Info) Description 03/01/2025 10:00 AM EST Appointment [facility] Ultrasound [address] [place] [address] Guero Ocampo MD [address] [facility] [address] [place] [address] 03/23/2025 10:30 AM EST Office Visit [facility] Gastroenterology [address] [facility] [address] [place] [address] Guero Ocampo MD [address] [facility] [address] [place] [address] 04/19/2025 1:45 PM EST Office Visit [facility] Primary Care - [facility] [address] [place] [address] Keisha Tolentino APRN [address] [place] [address] 07/19/2025 11:00 AM EDT Office Visit [facility] Cardiology - [place] [address] [place] [address] Silverio Victor MD [address] [facility] [address] [place] [address] documented as of this encounter Visit Diagnoses Diagnosis Left hip pain- Primary Pain in joint, pelvic region and thigh Gait instability Abnormality of gait documented in this encounter Care Teams Disbursing Officer Relationship Specialty Start Date End Date Ericbrennan Keisha, SURVEY SUPERINTENDENT [address] [place] [address] PCP - General Family Medicine 07/15/24 Marilee Angeles MD [address] [place] [address] Medical Oncologist Hematology and Oncology 08/19/23 documented as of this encounter
--- OUTSIDE RECORDS SUMMARY | 2024-12-18 15:15 | XMS_ITS | Encounter Summary ---
Author Organization [employer] ([place], [place], [place], [place]) Address [address] [place] [address] Care Team Providers Care Skein Tier Name Role Phone Marilee Angeles MD Unavailable [phone] Keisha Tolentino APRN Primary Care Provider [phone] Reason for Visit * Consultation (Routine) - Closed Specialty Diagnoses / Procedures Referred By Osiel garsia Referred To Contact Physical Therapy Diagnoses Left hip pain Gait instability Keisha Tolentino APRN [address] [place] [address] Phone: tel: fax: [facility] OP Physical Therapy [address] [place] [phone] Phone: tel: fax: Referral ID Status Reason Start Date Expiration Date V isits Requested Visits Authorized [id number] Closed Specialty Services Required 11/19/2024 12/31/2024 12 12 Encounter Details Date Type Department Care Team (Late st Contact Info) Description 12/18/2024 3:15 PM EDT Treatment [facility] OP Physical Therapy [address] [place] [phone] Konrad Haynes PT Left hip pain [...] Do you speak a language other than French at [facility]? No 07/26/2023 Do you want help [...] Sex Assigned at Female 05/29/2023 7:28 AM EDUCATIONAL/DEVELOPMENT ASSISTANT Legal Sex Female 5:18 PM CDT Gender Identity Female 05/29/2023 7:28 AM EDUCATIONAL/DEVELOPMENT ASSISTANT Sexual Orientation Not on file documented as of this encounter Progress Notes * Konrad Haynes, PT - 12/18/2024 3:15 PM EDT Images from the original note were not included. Outpatient Physical Therapy Treatment Note 12/18/2024 Time In: 1515 Time Out: 1620 Carol Rush 1940 84 y.o. 1. Left hip pain 2. Gait instability Referring Physician: Keisha Tolentino APRN Insurance: Payor: UNITED HEALTHCARE - MEDICARE MGD CARE / Plan: UHC MEDICARE ADVANTAGE / Product Type: *No Product type* / SUBJECTIVE Patient reports her L hip is continuing to feel better. She notes it mainly hurts when sitting or laying in bed. Pain: 0/10 OBJECTIVE INTERVENTIONS Therapeutic Exercise Sets x Repetitions Weight/Resistance Cues/Comments HEP STS 2 x 10 To chair, hands on knees [x] Heel Raises 3 x 10 Step Ups (B) 2 x 10 6 inch Not today Standing Hip 3 Way (B) 20x LAQ (B) 3 x 10 3# Hamstring Curls (B) 3 x 10 GTB SLR (B) 3 x 10 BKFO 2 min RTB Hip Adduction Squeeze 2 min Bridges 2 x 10 LTR 2 min Balance at [employer] 2 x 30 sec each Feet together, [...] performed exercises to improve BLE strength and she performed an increased amount of all of these today compared to last session. Patient tolerated overall treatment with mild difficulty and no reports of increased pain. She reported feeling very fatigued at the end of the session. Will continue to progressas tolerated. Patient will continue to benefit from skilled physical therapy services to return to premorbid mobility, strength and overall function. PLAN Interventions: Continue Therapeutic Exercise (45190), Therapeutic Activity (29431), and Neuromuscular Re-education (25511) Prognosis: Good Patient requires follow-up: Yes Total Treatment (min): 65' Timed Treatment (min): Therapeutic Exercise (58022) 60 minutes Electronically signed: Konrad Haynes PT 12/18/2024, 4:22 PM documented in this encounter Plan of Treatment Upcoming Encounters Date Type Department Care Team (Late st Contact Info) Description 03/01/2025 10:00 AM EST Appointment [facility] Ultrasound [address] [place] [address] Guero Ocampo MD [address] [facility] [address] [place] [address] 03/23/2025 10:30 AM EST Office Visit [facility]enterology [address] [place] [address] Guero Ocampo MD [address] [facility] [address] [place], [place] [address] 04/19/2025 1:45 PM EST Office Visit [facility] Primary Care - [facility] [address] [place] [address] Keisha Tolentino APRN [address] [place] [address] 07/19/2025 11:00 AM EDT Office Visit [facility] Cardiology - [place] [address] [place] [address] Silverio Victor MD [address] [facility] [address] [place] [address] documented as of this encounter Visit Diagnoses Diagnosis Left hip pain- Primary Pain in joint, pelvic region and thigh Gait instability Abnormality of gait documented in this encounter Care Teams Skein Tier Relationship Specialty Start Date End Date Keisha Tolentino APRN [address] [place] [address] PCP - General Family Medicine 07/15/24 Marilee Angeles MD [address] [place], [place] [address] Medical Oncologist Hematology and Oncology 08/19/23 documented as of this encounter
--- OUTSIDE RECORDS SUMMARY | 2024-12-23 14:45 | XMS_ITS | Encounter Summary ---
Author Organization [employer] ([place], [place], [place], [place]) Address [address] [place] [address] Care Team Providers Care Motor Vehicle Dispatcher Name Role Phone Marilee Angeles MD Unavailable [phone] Keisha Tolentino APRN Primary Care Provider [phone] Reason for Visit * Consultation (Routine) - Closed Specialty Diagnoses / Procedures Referred By Osiel garsia Referred To Contact Physical Therapy Diagnoses Left hip pain Gait instability Keisha Tolentino APRN [address] [place] [address] Phone: tel: fax: [facility] OP Physical Therapy [address] [place] [phone] Phone: tel: fax: Referral ID Status Reason Start Date Expiration Date V isits Requested Visits Authorized [id number] Closed Specialty Services Required 11/19/2024 12/31/2024 12 12 Encounter Details Date Type Department Care Team (Late st Contact Info) Description 12/23/2024 2:45 PM EDT Treatment [facility] OP Physical Therapy [address] [place] [phone] Konrad Haynes PT Left hip pain [...] speak a language other than French at [facility]? No 07/26/2023 Do you want help with [...] Sex Assigned at Female 05/29/2023 7:28 AM HUMAN RESOURCES COMPENSATION ANALYST Legal Sex Female 5:18 PM CDT Gender Identity Female 05/29/2023 7:28 AM HUMAN RESOURCES COMPENSATION ANALYST Sexual Orientation Not on file documented as of this encounter Progress Notes * Konrad Haynes, PT - 12/23/2024 2:45 PM EDT Images from the original note were not included. Outpatient Physical Therapy Treatment Note 12/23/2024 Time In: 1443 Time Out: 1536 Carol Rush 1940 84 y.o. 1. Left hip pain 2. Gait instability Referring Physician: Keisha Tolentino APRN Insurance: Payor: UNITED HEALTHCARE - MEDICARE MGD CARE / Plan: UHC MEDICARE ADVANTAGE / Product Type: *No Product type* / SUBJECTIVE Patient reports she is feeling better now compared to earlier this morning. She notes her blood pressure was a little lower than normal this morning. Pain: 0/10 OBJECTIVE INTERVENTIONS Therapeutic Exercise Sets x Repetitions Weight/Resistance Cues/Comments HEP STS 2 x 10 To chair, hands on knees [x] Heel Raises 3 x 10 Step Ups (B) 2 x 10 6 inch Standing Hip 3 Way (B) 20x LAQ (B) 3 x 10 3# Hamstring Curls (B) 3 x 10 GTB SLR (B) 3 x 10 *try adding 1# next session BKFO 2 min GTB Hip Adduction Squeeze 2 min Bridges 3 x 10 LTR 2 min Balance at [employer] 2 x 30 sec each Feet together, [...] the NuStep for BLE strengthening and CV effects followed by exercises to strengthening the BLE. Therex was progressed by increasing resistance for BKFO. She also performed an increased amount of repetitions for bridges for posterior chain strengthening. Patient tolerated overall treatment with mild difficulty and no reports of increased pain. She reported feeling veryfatigued at the end of the session. Will continue to progress as tolerated. Patient will continue to benefit from skilled physical therapy services to return to premorbid mobility, strength and overall function. PLAN Interventions: Continue Therapeutic Exercise (22350), Therapeutic Activity (60599), and Neuromuscular Re-education (35561) Prognosis: Good Patient requires follow-up: Yes Total Treatment (min): 53' Timed Treatment (min): Therapeutic Exercise (30845) 53 minutes Electronically signed: Konrad Haynes PT 12/23/2024, 3:38 PM documented in this encounter Plan of Treatment Upcoming Encounters Date Type Department Care Team (Late st Contact Info) Description 03/01/2025 10:00 AM EST Appointment [facility] Ultrasound [address] [place] [address] Guero Ocampo MD [address] [address] 03/23/2025 10:30 AM EST Office Visit [facility] Gastroenterology [address] [facility] [address] [place] [address] Guero Ocampo MD [address] [address] 04/19/2025 1:45 PM EST Office Visit [facility] - [facility] [address] [place] [address] Keisha Tolentino APRN [address] [place] [address] 07/19/2025 11:00 AM EDT Office Visit [facility] Cardiology - [place] [address] [place] [address] Silverio Victor MD [address] [address] documented as of this encounter Visit Diagnoses Diagnosis Left hip pain- Primary Pain in joint, pelvic region and thigh Gait instability Abnormality of gait documented in this encounter Care Teams Motor Vehicle Dispatcher Relationship Specialty Start Date End Date Keisha Tolentino APRN [address] [place] [address] PCP - General Family Medicine 07/15/24 Marilee Angeles MD [address] [place] [address] Medical Oncologist Hematology and Oncology 08/19/23 documented as of this encounter
--- OUTSIDE RECORDS SUMMARY | 2024-12-25 14:30 | XMS_ITS | Encounter Summary ---
Author Organization [employer] ([place], [place], [place], [place]) Address [address] [place] [address] Care Team Providers Care Lead Technical Architect Name Role Phone Marilee Angeles MD Unavailable [phone] Keisha Tolentino APRN Primary Care Provider [phone] Reason for Visit * Consultation (Routine) - Closed Specialty Diagnoses / Procedures Referred By Osiel garsia Referred To Contact Physical Therapy Diagnoses Left hip pain Gait instability Keisha Tolentino APRN [address] [place] [address] Phone: tel: fax: [facility] OP Physical Therapy [address] [place] [phone] Phone: tel: fax: Referral ID Status Reason Start Date Expiration Date V isits Requested Visits Authorized [id number] Closed Specialty Services Required 11/19/2024 12/31/2024 12 12 Encounter Details Date Type Department Care Team (Late st Contact Info) Description 12/25/2024 2:30 PM EDT Treatment [facility] OP Physical Therapy [address] [place] [phone] Konrad Haynes PT Left hip pain [...] Do you speak a language other than Fijian at [facility]? No 07/26/2023 Do you want help with [...] Sex Assigned at Female 05/29/2023 7:28 AM FOUNDRY EQUIPMENT MECHANIC Legal Sex Female 5:18 PM CDT Gender Identity Female 05/29/2023 7:28 AM FOUNDRY EQUIPMENT MECHANIC Sexual Orientation Not on file documented as of this encounter Progress Notes * Konrad Haynes, PT - 12/25/2024 2:30 PM EDT Images from the original note were not included. Outpatient Physical Therapy Treatment Note 12/25/2024 Time In: 1415 Time Out: 1514 Carol Rush 1940 84 y.o. 1. Left hip pain 2. Gait instability Referring Physician: Keisha Tolentino APRN Insurance: Payor: UNITED HEALTHCARE - MEDICARE MGD CARE / Plan: UHC MEDICARE ADVANTAGE / Product Type: *No Product type* / SUBJECTIVE Patient reports she is feeling good today and has no pain in her hip. Pain: 0/10 OBJECTIVE INTERVENTIONS Therapeutic Exercise Sets x Repetitions Weight/Resistance Cues/Comments HEP STS 2 x 10 To chair, hands on knees [x] Heel Raises 3 x 10 Step Ups (B) 2 x 10 [address] Hip [address] (B) 20x LAQ (B) 3 x 10 3# Hamstring Curls (B) 3 x 10 GTB SLR (B) 2 x 10 1# BKFO 2 min GTB Hip Adduction Squeeze 2 min Bridges 3 x 10 LTR 1 min Balance at [employer] 2 x 30 sec each Feet together, EO, head turns (vert/horiz), foam surface Feet together, EC, foam surface [] NuStep 10 min Level 6 [...] Therex was progressed by increasing resistance for SLR. She also performedbalance activities on the airex foam to improve BLE proprioception on uneven surfaces. She had moredifficulty performing vertical head turns compared to horizontal head turns this date. Patient tolerated overall treatment with mild difficulty and no reports of increased pain. She reported feeling very fatigued at the end of the session. Will continue to progress as tolerated. Patient will continue to benefit from skilled physical therapy services to return to premorbid mobility, strength and overall function. PLAN Interventions: Continue Therapeutic Exercise (41357), Therapeutic Activity (19238), and Neuromuscular Re-education (08908) Prognosis: Good Patient requires follow-up: Yes Total Treatment (min): 59' Timed Treatment (min): Therapeutic Exercise (01287) 59 minutes Electronically signed: Konrad Haynes, PT 12/25/2024, 3:15 PM documented in this encounter Plan of Treatment Upcoming Encounters Date Type Department Care Team (Late st Contact Info) Description 03/01/2025 10:00 AM EST Appointment [facility] Ultrasound [address] [place] [address] Guero Ocampo MD [address] [facility] [address] [place] [address] 03/23/2025 10:30 AM EST Office Visit [facility] [address] [facility] [address] [place] [address] Guero Ocampo MD [address] [facility] [address] [place] [address] 04/19/2025 1:45 PM EST Office Visit [facility] Primary Care - [facility] [address] [place] [address] Keisha Tolentino APRN [address] [place] [address] 07/19/2025 11:00 AM EDT Office Visit [facility] Cardiology - [place] [address] [place] [address] Silverio Victor MD [address] [facility] [address] [place] [id number] documented as of this encounter Visit Diagnoses Diagnosis Left hip pain- Primary Pain in joint, pelvic region and thigh Gait instability Abnormality of gait documented in this encounter Care Teams Lead Technical Architect Relationship Specialty Start Date End Date Keisha Tolentino APRN [address] [place] [address] PCP - General Family Medicine 07/15/24 Marilee Angeles MD [address] [place] [address] Medical Oncologist Hematology and Oncology 08/19/23 documented as of this encounter
--- OUTSIDE RECORDS SUMMARY | 2024-12-30 13:45 | XMS_ITS | Encounter Summary ---
Author Organization [employer] ([place], [place], [place], [place]) Address [address] [place] [address] Care Team Providers Care Filing Or Registry Clerk Name Role Phone Marilee Angeles MD Unavailable [phone] Keisha Tolentino APRN Primary Care Provider [phone] Reason for Visit * Consultation (Routine) - Closed Specialty Diagnoses / Procedures Referred By Osiel garsia Referred To Contact Physical Therapy Diagnoses Left hip pain Gait instability Keisha Tolentino APRN [address] [place] [address] Phone: tel: fax: [facility] OP Physical Therapy [address] [place] [phone] Phone: tel: fax: Referral ID Status Reason Start Date Expiration Date V isits Requested Visits Authorized [id number] Closed Specialty Services Required 11/19/2024 12/31/2024 12 12 Encounter Details Date Type Department Care Team (Late st Contact Info) Description 12/30/2024 1:45 PM EDT Treatment [facility] OP Physical Therapy [address] [place] [phone] Konrad Haynes PT Left hip pain [...] Do you speak a language other than [place] Verdean at [facility]? No 07/26/2023 Do you want help [...] Sex Assigned at Female 05/29/2023 7:28 AM MANAGER HOSPICE Legal Sex Female 5:18 PM CDT Gender Identity Female 05/29/2023 7:28 AM MANAGER HOSPICE Sexual Orientation Not on file documented as of this encounter Progress Notes * Konrad Haynes, PT - 12/30/2024 1:45 PM EDT Images from the original note were not included. Outpatient Physical Therapy Treatment Note 12/30/2024 Time In: 1335 Time Out: 1415 Carol Rush 1940 84 y.o. 1. Left hip pain 2. Gait instability Referring Physician: Keisha Tolentino APRN Insurance: Payor: UNITED HEALTHCARE - MEDICARE MGD CARE / Plan: UHC MEDICARE ADVANTAGE / Product Type: *No Product type* / SUBJECTIVE Patient reports she has no pain in her hip today. Pain: 0/10 OBJECTIVE INTERVENTIONS Therapeutic Exercise Sets x Repetitions Weight/Resistance Cues/Comments HEP Progress Note Due: 01/01/2025 STS 2 x 10 To chair, hands on knees [x] Heel Raises 3 x 10 Step Ups (B) 2 x 10 6 inch [address] Hip 3 Way (B) 20x LAQ (B) 3 x 10 3# Hamstring Curls (B) 3 x 10 GTB SLR (B) 3 x 10 1# BKFO 2 min GTB Hip Adduction Squeeze 2 min Bridges 3 x 10 LTR 1 min Balance at [employer] 2 x 30 sec each Feet together, [...] physioball With and without cognitive tasks [] Gait belt and CGA with all walking balance activities ASSESSMENT Patient began the session on the NuStep for BLE strengthening and CV effects followed by exercises to strengthening the BLE. Therex was progressed by increasing repetitions for SLR. Patient toleratedoverall treatment with mild difficulty and no reports of increased pain. She reported feeling very fatigued at the end of the session. Will continue to progress as tolerated. Patient was also provided an updated HEP for home. Patient will continue to benefit from skilled physical therapy services to [facility] to [facility], strength and overall function. PLAN Interventions: Continue Therapeutic Exercise (58251), Therapeutic Activity (48124), and Neuromuscular Re-education (45461) Prognosis: Good Patient requires follow-up: Yes Total Treatment (min): 40' Timed Treatment (min): Therapeutic Exercise (63405) 40 minutes Electronically signed: Konrad Haynes PT 12/30/2024, 3:00 PM documented in this encounter Plan of Treatment Upcoming Encounters Date Type Department Care Team (Late st Contact Info) Description 03/01/2025 10:00 AM EST Appointment [facility] Ultrasound [address] [place] [phone] Guero Ocampo MD [address] [facility] [address] [place] [address] 03/23/2025 10:30 AM EST Office Visit [facility] Gastroenterology [address] [place] [phone] Guero Ocampo MD [address] [facility] [address] [place] [address] 04/19/2025 1:45 PM EST Office Visit [facility] Primary Care - [facility] [address] [place] [phone] Keisha Tolentino APRN [address] [place] [address] 07/19/2025 11:00 AM EDT Office Visit [facility] Cardiology - [place] [address] [place] [address] Silverio Victor MD [address] [facility] [address] [place] [address] documented as of this encounter Visit Diagnoses Diagnosis Left hip pain- Primary Pain in joint, pelvic region and thigh Gait instability Abnormality of gait documented in this encounter Care Teams Filing Or Registry Clerk Relationship Specialty Start Date End Date Keisha Tolentino, CAPTAIN ASSISTANT [address] [place] [address] PCP - General Family Medicine 07/15/24 Marilee Angeles MD [address] [address] Medical Oncologist Hematology and Oncology 08/19/23 documented as of this encounter
--- OUTSIDE RECORDS SUMMARY | 2025-01-01 14:30 | XMS_ITS | Encounter Summary ---
Author Organization [employer] ([place], [place], [place], [place]) Address [address] [place] [address] Care Team Providers Care Machinist Instructor Name Role Phone Marilee Angeles MD Unavailable [phone] Keisha Tolentino APRN Primary Care Provider [phone] Reason for Visit * Consultation (Routine) - Closed Specialty Diagnoses / Procedures Referred By Osiel garsia Referred To Contact Physical Therapy Diagnoses Left hip pain Gait instability Keisha Tolentino APRN [address] [place] [address] Phone: tel: fax: [facility] OP Physical Therapy [address] [place] [phone] Phone: tel: fax: Referral ID Status Reason Start Date Expiration Date V isits Requested Visits Authorized [id number] Closed Specialty Services Required 11/19/2024 12/31/2024 12 12 Encounter Details Date Type Department Care Team (Late st Contact Info) Description 01/01/2025 2:30 PM EDT Treatment [facility] OP Physical Therapy [address] [place] [phone] Konrad Haynes PT Left hip pain [...] Do you speak a language other than [place]an at [facility]? No 07/26/2023 Do you want help [...] Sex Assigned at Female 05/29/2023 7:28 AM RETAIL STOCKER Legal Sex Female 5:18 PM CDT Gender Identity Female 05/29/2023 7:28 AM RETAIL STOCKER Sexual Orientation Not on file documented as of this encounter Progress Notes * Konrad Haynes, PT - 01/01/2025 2:30 PM EDT Images from the original note were not included. Outpatient Physical Therapy Progress Note 01/01/2025 Time In: 1430 Time Out: 1523 Carol Rush 1940 84 y.o. 1. Left hip pain 2. Gait instability Referring Provider: Keisha Tolentino APRN Insurance: Payor: UNITED HEALTHCARE - MEDICARE MGD CARE / Plan: UHC MEDICARE ADVANTAGE / Product Type: *No Product type* / SUBJECTIVE Patient reports she has no pain in her hip this date. She notes she spent yesterday raking leaves and had to take a few breaks due to it being so hot. Pain: 0/10 Symptoms since onset: Improved OBJECTIVE Test/Measurements Hip ROM (degrees) LEFT RIGHT External Rotation 43 44 Internal Rotation 22 24 Strength Hip LEFT RIGHT Flexion 4/5 4-/5 Abduction 4/5 4-/5 ADDuction 4+/5 4+/5 External Rotation 4+/5 4+/5 Functional Outcome Measure: LEFS: 61/80 30 sec STS: 10 reps FGA: 18/30 INTERVENTIONS Therapeutic Exercise Sets x [...] SLR (B) 2 x 10 1# BKFO 1 min GTB Hip Adduction Squeeze 1 min Bridges 2 x 10 LTR 1 min Balance at [employer] 2 x 30 sec each Feet together, EO, head turns (vert/horiz), foam surface Feet together, EC, foam surface [] NuStep 8 min Level 6 [...] all walking balance activities Total Treatment (min): 53' Timed Treatment (min): Therapeutic Exercise (69230) 45 minutes ASSESSMENT Patient has made great improvements towards PT goals. Patient's bilateral hip strength has also improved in all planes on the LLE and has improved for adduction and ER on the RLE. Patient's LEFS has improved very slightly from 60/80 at her progress note to 61/80 today. She states she feels a littlestronger and notes her hip has not prevented her from doing any of her ADLs. Patient also demonstrated an improvement in her 30 sec STS test as she completed 8 reps at her last progress note and was able to complete 10 reps today, both of which with her hands on her knees. This is within her genderand age norm of 8-13 reps, indicating improved functional mobility and endurance. Patient's FGA hasstayed the same at 18/30. This is still below the cut off score of 22/30, indicating she is at an increased risk of falls. Patient has continued to tolerate treatments with mild difficulty and no reports of increased pain. Discussed discharging this date due to improvements in objective and subjective measures. Patient was agreeable to this at this time. She was provided an HEP to continue improving her BLE strength at home. Patient will be discharged from PT services at this time. PLAN Carol Rush requires skilled physical therapy services to address the below stated problems/goals, using Therapeutic Exercise (73274), Therapeutic Activity (63451), Gait Training (88824), Manual Therapy (23170), and Neuromuscular Re- education (98642). Skilled intervention required to decrease pain, increase [...] questions, Pt/CG demonstrated carry-over, and Handouts provided Prison Goals: Patient will improve FGA score to 22/30 for decreased risk of falls and to demonstrate improved balance when ambulating in the community in 12 weeks. (Not Met, Unchanged: ) Patient will complete 11 repetitions without BUE [...] to improve self-care ADL's and household ADL's. (Goal Met) Plan of Care Certification Date: 11/05/2024 - 01/27/2025 Frequency/Duration: 2x/Week for 12 weeks Electronically signed by: Konrad Haynes PT 01/01/2025, 3:48 PM * Konrad Haynes PT - 01/01/2025 2:30 PM EDT Images from the original note were not included. Outpatient Physical Therapy Discharge Summary 01/01/2025 Carol Brody Adri 1940 1. Left hip pain 2. Gait instability Referring Physician: Keisha Tolentino APRN Insurance: Payor: UNITED HEALTHCARE - MEDICARE MG CARE / Plan: [facility] MEDICARE ADVANTAGE / Product Type: *No Product type* / Date Physical Therapy Initiated: 11/05/2024 Date Physical Therapy Discontinued: 01/01/2025 ASSESSMENT Functional Status at Discharge: Per progress note, Patient has made great improvements towards PT goals. Patient's bilateral hip strength has also improved in all planes on the LLE and has improved for adduction and ER on the RLE. Patient's LEFS has improved very slightly from 60/80 at her progress note to 61/80 today. She states she feels a little stronger and notes her hip has not prevented her from doing any of her ADLs. Patient also demonstrated an improvement in her 30 sec STS test as shecompleted 8 reps at her last progress note and was able to complete 10 reps today, both of which with her hands on her knees. This is within her gender and age norm of 8-13 reps, indicating improved functional mobility and endurance. Patient's FGA has stayed the same at 18/30. This is still below the cut off score of 22/30, indicating she is at an increased risk of falls. Patient has continued totolerate treatments with mild difficulty and no reports of increased pain. Discussed discharging this date due to improvements in objective and subjective measures. Patient was agreeable to this at this time. She was provided an HEP to continue improving her BLE strength at home. Patient will be discharged from PT services at this time. Treatment: Therapeutic Exercise (68103), Therapeutic Activity (55622), and Neuromuscular Re-education (90177) Number of Goals Met: Prison Goal 5, Prison Goal 6 Number of Goals Not Met: Personal Injury Paralegal Goal 1, Prison Goal 2, Personal Injury Paralegal Goal 3, and Prison Goal 4 Reason Goals Not Met: patient has made great improvements since initiating PT and she was just short of meeting her goals Prison Goals: Patient will improve FGA score to 22/30 for decreased risk of falls and to demonstrate improved balance when ambulating in the community in 12 weeks. (Not Met, Unchanged: 18/30) Patient will complete 11 repetitions without BUE [...] to improve self-care ADL's and household ADL's. (Goal Met) RECOMMENDATIONS Education Provided: yes Family Present: no HEP Issued: yes Discharge Plan and Recommendations/Continuum of Care: continue with HEP and follow up with MD if any new or worsening symptoms Discharge Disposition: Good documented in this encounter Plan of Treatment Upcoming Encounters Date Type Department Care Team (Late st Contact Info) Description 03/01/2025 10:00 AM EST Appointment [facility] Ultrasound [address] [place] [address] Guero Ocampo MD [address] [facility] [address] [place] [address] 03/23/2025 10:30 AM EST Office Visit [facility] Gastroenterology [address] [place] [address] Guero Ocampo MD [address] [facility] [address] [place], [place] [id number] 04/19/2025 1:45 PM EST Office Visit [facility] Primary Care - [facility] [address] [place] [address] Keisha Tolentino APRN [address] [place] [phone] 07/19/2025 11:00 AM EDT Office Visit [facility] Cardiology - [place] [address] [place] [address] Silverio Victor MD [address] [facility] [address] [place], [place] [id number] documented as of this encounter Visit Diagnoses Diagnosis Left hip pain- Primary Pain in joint, pelvic region and thigh Gait instability Abnormality of gait documented in this encounter Care Teams Machinist Instructor Relationship Specialty Start Date End Date Keisha Tolentino APRN [address] [place] [address] PCP - General Family Medicine 07/15/24 Marilee Angeles MD [address] [place] [address] Medical Oncologist Hematology and Oncology 08/19/23 documented as of this encounter
--- OUTSIDE RECORDS SUMMARY | 2025-01-07 11:30 | XMS_ITS | Encounter Summary ---
Author Organization [employer] ([place], [place], [place], [place]) Address [address] [place] [address] Care Team Providers Care Medical Billing Representative Name Role Phone Marilee Angeles MD Unavailable [phone] Keisha Tolentino APRN Primary Care Provider [phone] Reason for Visit * Reason Comments Follow-up Patient is here toda y with a 3 month follow up.PHQ: 0 Encounter Details Date Type Department Care Team (Late st Contact Info) Description 01/07/2025 11:30 AM EDT Office Visit [facility] Primary Care - [facility] [address] [place] [address] Keisha Tolentino APRN [address] [place] [address] GERD (gastroesophageal reflux disease) (Primary Dx); Hyperlipidemia, unspecified; Essential (primary) hypertension; Type 2 diabetes mellitus without complication, without long-term current use of insulin (HCC); Chronic kidney disease, stage 3b (HCC); Polyarthropathy; Pacemaker; Cirrhosis (HCC); Varicose veins of ankle; Cellulitis; Stasis dermatitis; Chronic venous insufficiency; Thrombocytopenia (HCC) Social History Tobacco Use Types Packs/Day Years Used Date Smoking Tobacco: Never Smokeless Tobacco: Never Alcohol Use Standard Drinks/Week Comments Never 0 (1 standard drink = 0.6 oz pur e alcohol) Caffeine use [facility] - Mental Health Answer Date Recorde d Little interest or pleasure in doing things Not at all 01/07/2025 Feeling down, depressed, or hopeless Not at all 01/07/2025 Feeling of Stress Not on file 01/07/2025 Utilities Answer Date Recorded In the past [...] Do you speak a language other than [place] [facility]? No 07/26/2023 Do you want help [...] Sex Assigned at Female 05/29/2023 7:28 AM CRAB FISHERMAN Legal Sex Female 5:18 PM CDT Gender Identity Female 05/29/2023 7:28 AM CRAB FISHERMAN Sexual Orientation Not on file documented as of this encounter Last Filed Vital Signs Vital Sign Reading Time Taken Comments Blood Pressure 134/66 01/07/2025 11:14 AM EDT Pulse 95 01/07/2025 11:14 AM EDT Temperature - - Respiratory Rate - - Oxygen Saturation 96% 01/07/2025 11:14 AM EDT Inhaled Oxygen Concentration - - Weight 73 kg (161 lb) 01/07/2025 11:14 AM EDT Height 154.9 cm (5' 1 ) 01/07/2025 11:14 AM EDT Body Mass Index 30.42 01/07/2025 11:14 AM EDT documented in this encounter Functional Status * Over the past 2 weeks, how often have you been bothered by any of the following problems? Question Answer Date of Assessment Author Little interest or pleasure in doing things Not at all 01/07/2025 11:27 AM CDT Jace Emery Feeling down, depressed, or hopeless Not at all 01/07/2025 11:27 AM OSBALDOT Jace Emery Patient Health Questionnaire -2 Score 0 01/07/2025 11:27 AM CDT Jace Emery documented as of this encounter Progress Notes * Keisha Tolentino, ANA - 01/07/2025 11:30 AM EDT Depression Screen: (PHQ9 > 10 Likely Major Depression, 5-9 = Mild depression, 10-14= Moderate depression, 15-19 Moderately severe depression, > 20 =severe depression) PHQ2 = Patient Health Questionnaire-2 Score: 0 PHQ9 = Plan Provider Interpretation: Negative. no treatment needed based on clinical judgement 01/07/2025 Subjective: Carol Rush is a 84 y.o. female. Chief Complaint Patient presents with Follow-up Patient is here today with a 3 month follow up. PHQ: 0 84-year-old white female here today for 3-month follow-up. Has history of chronic kidney disease she is at stage IIIb. Has history of type 2 diabetes her last hemoglobin A1c was less than 7% she is on glyburide. Takes simvastatin for hyperlipidemia. She follows with cardiology she has a pacemaker. Takes omeprazole for GERD. Follows with Dr. Ocampo for cirrhosis Current Outpatient Medications: biotin 10,000 mcg cap, Take 1 capsule by mouth daily., Disp: , Rfl: blood sugar diagnostic (glucose blood) strp, Test 2 to 4 Time A Day (Dx: E11.9)., Disp: 200 strip, Rfl: 2 cholecalciferol, vitamin D3, 50 mcg (2,000 unit) cap, Take 1 capsule (2,000 Units total) by mouth daily., Disp: , Rfl: diclofenac sodium 1 % gel, Apply 2 g topically 3 (three) times daily as needed (joint pain) for up to 180 days., Disp: 100 g, Rfl: 1 famotidine (PEPCID) 40 MG tablet, Take 1 [...] nightly., Disp: 90 tablet, Rfl: 1 vit C,Z-Ec-xylhc-lutein-zeaxan (PreserVision AREDS-2) 250-90-40-1 mg Cap, Take 1 capsule by mouth 2(two) times daily., Disp: , Rfl: cephalexin (KEFLEX) 500 MG capsule, Take 2 capsules (1,000 mg total) by mouth 2 (two) times daily for 10 days., Disp: 40 capsule, Rfl: 0 doxycycline (ADOXA) 100 MG tablet, Take 1 tablet (100 mg total) by mouth 2 (two) times daily for 10days., Disp: 20 tablet, Rfl: 0 triamcinolone (KENALOG) 0.1 % topical cream, Apply topically 2 (two) times daily for 7 days to affected area.., Disp: 28.4 g, Rfl: 1 Review of Systems Constitutional: Negative. Respiratory: Negative. Cardiovascular: Negative. Gastrointestinal: Negative. Genitourinary: Negative. Musculoskeletal: Negative. Past Medical History: Diagnosis Date Allergic rhinitis Arthritis Cirrhosis (HCC) Colon cancer (HCC) Diabetes mellitus (HCC) GERD (gastroesophageal reflux disease) Hyperlipidemia Hypertension Macular degeneration, wet (HCC) Obstructive lung disease (generalized) (HCC) 03/20/2022 Pacemaker SSS (sick sinus syndrome) ([facility]) Past Surgical History: Procedure Laterality Date ATRIAL CARDIAC PACEMAKER INSERTION cateracts SECTION CHOLECYSTECTOMY COLONOSCOPY,BIOPSY N/A 05/29/2023 Procedure: COLONOSCOPY, WITH BIOPSY; Surgeon: Guero Ocampo MD; Location: [facility]; Service: Gastroenterology; Laterality: N/A; COLONOSCOPY,POLYPECTOMY N/A 05/29/2023 Procedure: COLONOSCOPY, WITH POLYPECTOMY; Surgeon: Guero Ocampo MD; Location: [facility]; Service: Gastroenterology; Laterality: N/A; COLONOSCOPY,SUBMUCOSAL INJECTION N/A 05/29/2023 Procedure: COLONOSCOPY, WITH DIRECTED SUBMUCOSAL INJECTION; Surgeon: Guero Ocampo MD; Location: [facility]; Service: Gastroenterology; Laterality: N/A; tattoo used EYE SURGERY cataract INSERTION/REPLACEMENT,PACEMAKER ROBOTIC LAPAROSCOPY,COLECTOMY RIGHT Right 07/26/2023 Procedure: (ROBOTIC RT COLECTOMY); Surgeon: Earnest Spaulding MD; Location: [facility] OR; Service: General Surgery; Laterality: Right; IN, 2HRS(A), [...] and does not use drugs. Objective: BP 134/66 (BP Location: Left arm, Patient Position: Sitting) Pulse 95 Ht 1.549 m (5' 1 ) Wt 73 kg (161 lb) SpO2 96% BMI 30.42 kg/m?? Body mass index is 30.42 kg/m??. Physical Exam Cardiovascular: Rate and Rhythm: Normal rate and regular rhythm. Heart sounds: Murmur heard. Pulmonary: Effort: Pulmonary effort is normal. Breath sounds: Normal breath sounds. Skin: Comments: Right and left lower extremity varicose veins. Left leg with skin brawny discoloration changes associated with chronic venous insufficiency right leg around ankle is red hot tender to touchover scaly scratchy area Neurological: Mental Status: She is alert. No results found for this visit on 01/07/25 (from the past 24 hours). Assessment: Problem List Items Addressed This Visit Endocrine Diabetes mellitus (HCC) (Chronic) Other Visit Diagnoses GERD (gastroesophageal reflux disease) - Primary Hyperlipidemia, unspecified Essential (primary) hypertension Chronic kidney disease, stage 3b (HCC) (Chronic) Polyarthropathy Pacemaker Cirrhosis (HCC) (Chronic) Varicose veins of ankle Cellulitis Relevant Medications doxycycline (ADOXA) 100 MG tablet cephalexin (KEFLEX) 500 MG capsule Stasis dermatitis Relevant Medications triamcinolone (KENALOG) 0.1 % topical cream Chronic venous insufficiency Thrombocytopenia (HCC) (Chronic) Did review with her labs just done in November with kidney function stable improved a little bit since last time we discussed mutually and agreed to just watch this since she is already seeing so many other specialists if her kidney function continues to decline then we will revisit nephrology referral. She stated her urologist is leaving she was previously seen on for history of kidney stones no issues in the past few years never had to have surgery to remove them we are holding off on referring toanother 1 for now. Continue to follow with Dr. Ocampo for cirrhosis reviewed last note with him 2 to follow with cardiology reviewed last note with them she has pacemaker. Regarding the issue with her left ankle that has been there for about a week it hurts tender to touch I am treating her for cellulitis with Doxy and K-Flex. Also given her some triamcinolone cream touse as needed for these itchy areas that are attributable to stasis dermatitis. Recommended compression stockings for varicose veins and venous insufficiency. Reviewed labs from November she has thrombocytopenia this is not new this can be related to her cirrhosis. Also elevated MCV she may want to get B12 folate checked Sent message to MARY to send in orders for her diabetic supplies she needs these sent back into [facility] Time spent 42 minutes Return in about 1 week (around 01/14/2025). Keisha Tolentino APRN documented in this encounter Plan of Treatment Upcoming Encounters Date Type Department Care Team (Late st Contact Info) Description 03/01/2025 10:00 AM EST Appointment [facility] Ultrasound [address] [place] [address] Guero Ocampo MD [address] [facility] [address] [place], [place] [id number] 03/23/2025 10:30 AM EST Office Visit [facility] Gastroenterology [address] [place] [address] Guero Ocampo MD [address] [facility] [address] [place] [address] 04/19/2025 1:45 PM EST Office Visit [facility] Primary Care - [facility] [address] [place] [phone] Keisha Tolentino APRN [address] [place] [address] 07/19/2025 11:00 AM EDT Office Visit [facility] Cardiology - [place] [address] [place] [address] Silverio Victor MD [address] 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 Cellulitis Cellulitis and abscess of unspecified site Stasis dermatitis Varicose veins of lower extremities with inflammation Chronic venous insufficiency Unspecified venous (peripheral) insufficiency Thrombocytopenia (HCC) Unspecified thrombocytopenia documented in this encounter Care Teams Medical Billing Representative Relationship Specialty Start Date End Date Keisha Tolentino, SUPPLY CHAIN VICE PRESIDENT [address] [place] [address] PCP - General Family Medicine 07/15/24 Marilee Angeles MD [address] [place] [address] Medical Oncologist Hematology and Oncology 08/19/23 documented as of this encounter
--- OUTSIDE RECORDS SUMMARY | 2025-01-07 14:45 | XMS_ITS | Encounter Summary ---
Author Organization [employer] ([place], [place], [place], [place]) Address [address] [place] [address] Care Team Providers Care Director Of Consumer Marketing Name Role Phone Marilee Angeles MD Unavailable [phone] Keisha Tolentino APRN Primary Care Provider [phone] Encounter Details Date Type Department Care Team (Latest Contact Info) Description 01/07/2025 2:45 PM EDT Lab Patient Walk-In [facility] Lab [address] [place] [phone] SSS (sick sinus syndrome) (HCC) (Primary Dx); Hypertension; Obstructive lung disease (generalized) (HCC); Malignant neoplasm of transverse colon (HCC); Diabetes mellitus (HCC); Encounter for adjustment or management of cardiac device; MRI safe cardiac pacemaker in situ Social History Tobacco Use Types Packs/Day Years Used Date Smoking Tobacco: Never Smokeless Tobacco: Never Alcohol Use Standard Drinks/Week Comments Never 0 (1 standard drink = 0.6 oz pur e alcohol) Caffeine use [facility] - Mental Health Answer Date Recorde [...] Do you speak a language other than [place] [facility]? No 07/26/2023 Do you want [...] Sex Assigned at Female 05/29/2023 7:28 AM AED TRAINER Legal Sex Female 5:18 PM CDT Gender Identity Female 05/29/2023 7:28 AM AED TRAINER Sexual Orientation Not on file documented as of this encounter Functional Status * Over the past 2 weeks, how often have you been bothered by any of the following problems? Question Answer Date of Assessment Author Little interest or pleasure in doing things Not at all 01/07/2025 11:27 AM CDT Jace Emery Feeling down, depressed, or hopeless Not at all 01/07/2025 11:27 AM CDT Yuly Jace Patient Health Questionnaire -2 Score 0 01/07/2025 11:27 AM CDT Jace Emery documented as of this encounter Miscellaneous Notes * Result Encounter Note - Jace Emery - 01/07/2025 2:45 PM EDT Called and LVMM for patient to call the office back in regards to lab results. * Result Encounter Note - Jace Yuly - 01/07/2025 2:45 PM EDT Patient informed of results during clinic encounter/telephone encounter. documented in this encounter Plan of Treatment Upcoming Encounters Date Type Department Care Team (Late st Contact Info) Description 03/01/2025 10:00 AM EST Appointment [facility] Ultrasound [address] [place] [address] Guero Ocampo MD [address] [facility] [address] [place] [address] 03/23/2025 10:30 AM EST Office Visit [facility]astroenterology [address] [place] [address] Guero Ocampo MD [address] [facility] [address] [place] [address] 04/19/2025 1:45 PM EST Office Visit [facility] Primary Care - [facility] [address] [place] [phone] Keisha Tolentino APRN [address] [place] [address] 07/19/2025 11:00 AM EDT Office Visit [facility] Cardiology - [place] [address] [place] [phone] Silverio Victor MD [address] [facility] [address] [place] [address] documented as of this encounter Procedures Procedure Name Priority Date/Time Associated Diagnosis Comments PROTEIN ELECTROPHORESIS W RFLX TO JOE(SENDOUT) Routine 01/07/2025 12:29 PM EDT SSS (sick sinus syndrome) (HCC) Hypertension Obstructive lung disease (generalized) (HCC) Malignant neoplasm of transverse colon (HCC) Diabetes mellitus (HCC) Encounter for adjustment or management of cardiac device MRI safe cardiac pacemaker in situ FOLATE, SERUM Routine 01/07/2025 12:29 PM EDT SSS (sick sinus syndrome) (HCC) Hypertension Obstructive lung disease (generalized) (HCC) Malignant neoplasm of transverse colon (HCC) Diabetes mellitus (HCC) Encounter for adjustment or management of cardiac device MRI safe cardiac pacemaker in situ VITAMIN B12 Routine 01/07/2025 12:29 PM EDT SSS (sick sinus syndrome) (HCC) Hypertension Obstructive lung disease (generalized) (HCC) Malignant neoplasm of transverse colon (HCC) Diabetes mellitus (HCC) Encounter for adjustment or management of cardiac device MRI safe cardiac pacemaker in situ documented in this encounter Results * Folate, Serum (01/07/2025 12:29 PM EDT) Folate 18.7 7.0 - 31.4 ng/mL 01/08/2025 12:14 AM EDT [facility] Blood Venipuncture / Unknown 01/07/2025 12:29 PM EDT 01/07/2025 12:40 PM EDT Keisha Tolentino APRN LAB BLOOD ORDERABLES Final Result [facility] [address] [phone] * Vitamin B12 (01/07/2025 12:29 PM EDT) Vitamin B12 567 213 - 816 pg/mL 01/08/2025 12:14 AM EDT [facility] Blood Venipuncture / Unknown 01/07/2025 12:29 PM EDT 01/07/2025 12:40 PM EDT Keisha Tolentino SEARCH MARKETING ANALYST LAB BLOOD ORDERABLES Final Result [facility] [address] [phone] * (ABNORMAL) Protein Electrophoresis w Rflx to JOE(SENDOUT) (01/07/2025 12:29 PM EDT) Pathologist [facility] Total Protein, Serum 6.4 6.3 - 8.2 g/dL 01/10/2025 8:18 AM EDT [facility] Albumin 3.49(L) 3.75 - 5.01 g/dL 01/10/2025 8:18 AM EDT [facility] Alpha 1 Globulin 0.25 0.19 - 0.46 g/dL 01/10/2025 8:18 AM EDT [facility] Alpha 2 Globulin 0.79 0.48 - 1.05 g/dL 01/10/2025 8:18 AM EDT [facility] Beta Globulin 0.79 0.48 - 1.10 g/dL 01/10/2025 8:18 AM EDT [facility] Gamma 1.08 0.62 - 1.51 g/dL 01/10/2025 8:18 AM EDT [facility] Immunofixation Reflex Not Done 01/10/2025 8:18 AM EDT [facility] Comment: Caution: Reflex to Immunofixation electrophoresis (JOE)is not indicated per results of protein electrophoresis. Immunofixation electrophoresis is a more sensitive technique than serum protein electrophoresis for the identification of small M-proteins found in patients with amyloidosis, early or treated myeloma and macroglobulinemia, MGUS, solitary plasmacytoma,and extramedullary plasmacytoma. Monoclonal Protein Not Applicable <=0.00 g/dL 01/10/2025 8:18 AM EDT [facility] SPEP/JOE Interpretation See Note 01/10/2025 8:18 AM EDT [employer] [facility] Comment:Serum protein electr ophoresis is negative for monoclonal protein. EER Serum Protein Electrophoresis Reflex See Note 01/10/2025 8:18 AM EDT [employer] [facility] Comment: Authorized individuals can access the [employer] Enhanced Report with an [employer] Connect account using the following link. Your local lab can assist you in obtaining the patient report if you don't have a Connect account. [email or web address] Performed By: [facility] [address] [place] [address] Vehicle Dismantler: Jacinto Wolfe MD, PhD CLIA Number: [id number] Blood Venipuncture / Unknown 01/07/2025 12:29 PM EDT 01/07/2025 12:40 PM EDT Keisha Tolentino SEARCH MARKETING ANALYST LAB BLOOD ORDERABLES Final Result [facility] [address] [place] [address], [facility] [phone] documented in this encounter Visit Diagnoses Diagnosis SSS (sick sinus syndrome) (HCC)- Primary Sinoatrial node dysfunction Hypertension Unspecified essential hypertension Obstructive lung disease (generalized) (HCC) Chronic airway obstruction, not elsewhere classified Malignant neoplasm of transverse colon (HCC) Malignant neoplasm of transverse colon Diabetes mellitus (HCC) Type II or unspecified type diabetes mellitus without mention of complication, not stated as uncontrolled Encounter for adjustment or management of cardiac device MRI safe cardiac pacemaker in situ documented in this encounter Care Teams Director Of Consumer Marketing Relationship Specialty Start Date End Date Keisha Tolentino APRN [address] [place] [address] PCP - General Family Medicine 07/15/24 [place] [address] [place] [address] Medical Oncologist Hematology and Oncology 08/19/23 documented as of this encounter
--- OUTSIDE RECORDS SUMMARY | 2025-01-13 14:45 | XMS_ITS | Encounter Summary ---
Author Organization [employer] ([place], [place], [place], [place]) Address [address] [place] [address] Care Team Providers Care Zanjero Name Role Phone Marilee Angeles MD Unavailable [phone] Keisha Tolentino APRN Primary Care Provider [phone] Reason for Visit * Reason Comments Follow-up Patient is here toda y for a 1 week follow up.PHQ: 0 Encounter Details Date Type Department Care Team (Late st Contact Info) Description 01/13/2025 2:45 PM EDT Office Visit [facility] Primary Care - [address] [address] Keisha Tolentino APRN [address] [place] [address] Type 2 diabetes mellitus without complication, without long-term current use of insulin (HCC) (Primary Dx); Chronic kidney disease, stage 3b (HCC); Thrombocytopenia (HCC); Chronic venous insufficiency; Stasis dermatitis; Cellulitis Social History Tobacco Use Types Packs/Day Years Used Date Smoking Tobacco: Never Smokeless Tobacco: Never Alcohol Use Standard Drinks/Week Comments Never 0 (1 standard drink = 0.6 oz pur e alcohol) Caffeine use [facility] - Mental Health Answer Date Recorde d Little interest or pleasure in doing things Not at all 01/13/2025 Feeling down, depressed, or hopeless Not at all 01/13/2025 Feeling of Stress Not on file 01/13/2025 Utilities Answer Date Recorded In the past [...] Do you speak a language other than [place] at [facility]? No 07/26/2023 Do you want help with [...] Sex Assigned at Female 05/29/2023 7:28 AM SEQUENCING MACHINE OPERATOR Legal Sex Female 5:18 PM CDT Gender Identity Female 05/29/2023 7:28 AM SEQUENCING MACHINE OPERATOR Sexual Orientation Not on file documented as of this encounter Last Filed Vital Signs Vital Sign Reading Time Taken Comments Blood Pressure 136/64 01/13/2025 2:35 PM EDT Pulse 93 01/13/2025 2:35 PM EDT Temperature - - Respiratory Rate - - Oxygen Saturation 92% 01/13/2025 2:35 PM EDT Inhaled Oxygen Concentration - - Weight 72.6 kg (160 lb) 01/13/2025 2:35 PM EDT Height 154.9 cm (5' 1 ) 01/13/2025 2:35 PM EDT Body Mass Index 30.23 01/13/2025 2:35 PM EDT documented in this encounter Functional Status * Over the past 2 weeks, how often have you been bothered by any of the following problems? Question Answer Date of Assessment Author Little interest or pleasure in doing things Not at all 01/13/2025 2:39 PM CDT Jace Emery Feeling down, depressed, or hopeless Not at all 01/13/2025 2:39 PM CDT Jace Emery Patient Health Questionnaire -2 Score 0 01/13/2025 2:39 PM CDT Jace Emery documented as of this encounter Progress Notes * Keisha Tolentino, DRY CHARGE PROCESS ATTENDANT - 01/13/2025 2:45 PM EDT Depression Screen: (PHQ9 > 10 Likely Major Depression, 5-9 = Mild depression, 10-14= Moderate depression, 15-19 Moderately severe depression, > 20 =severe depression) PHQ2 = Patient Health Questionnaire-2 Score: 0 PHQ9 = Plan Provider Interpretation: Negative. no treatment needed based on clinical judgement 01/13/2025 Subjective: Carol Rush is a 84 y.o. female. Chief Complaint Patient presents with Follow-up Patient is here today for a 1 week follow up. PHQ: 0 84-year-old white female here today for follow-up on cellulitis and chronic venous insufficiency. Taking both Doxy and K-Flex and using as needed steroid cream for itching on her legs. She is wearingcompression stockings today. Reports her condition has improved. Current Outpatient Medications: biotin 10,000 mcg cap, Take 1 capsule by mouth daily., Disp: , Rfl: blood sugar diagnostic (Accu-Chek Guide test strips) strp, 1 each daily., Disp: 100 strip, Rfl: 0 blood sugar diagnostic (glucose blood) strp, Test 2 to 4 Time A Day (Dx: E11.9)., Disp: 200 strip, Rfl: 2 cephalexin (KEFLEX) 500 MG capsule, Take 2 capsules (1,000 mg total) by mouth 2 (two) times daily for 10 days., Disp: 40 capsule, Rfl: 0 cholecalciferol, vitamin D3, 50 mcg (2,000 unit) cap, Take 1 capsule (2,000 Units total) by mouth daily., Disp: , Rfl: diclofenac sodium 1 % gel, Apply 2 g topically 3 (three) times daily as needed (joint pain) for up to 180 days., Disp: 100 g, Rfl: 1 doxycycline (ADOXA) 100 MG tablet, Take 1 tablet (100 mg total) by mouth 2 (two) times daily for 10days., Disp: 20 tablet, Rfl: 0 famotidine (PEPCID) 40 MG tablet, Take 1 tablet (40 mg total) by mouth every night as needed for heartburn., Disp: 90 tablet, Rfl: 1 ferrous sulfate 137 mg (45 mg iron) TbER, Take by mouth., Disp: , Rfl: glucometer (Accu-Chek Guide Glucose Meter) [facility], As Directed.., Disp: 1 each, Rfl: 0 glyBURIDE (DIABETA) 2.5 MG tablet, Take 1 tablet (2.5 mg total) by mouth daily with breakfast., Disp: 90 tablet, Rfl: 1 lancets mis, daily., Disp: 100 each, Rfl: 0 lisinopriL (ZESTRIL) 40 MG tablet, Take 1 [...] mouth nightly., Disp: 90 tablet, Rfl: 1 triamcinolone (KENALOG) 0.1 % topical cream, Apply topically 2 (two) times daily for 7 days to affected area.., Disp: 28.4 g, Rfl: 1 vit C,I-Gw-mwzgt-lutein-zeaxan (PreserVision AREDS-2) 250-90-40-1 mg Cap, Take 1 capsule by mouth 2(two) times daily., Disp: , Rfl: lancets misc, Test 2 to 4 Times A Day (Dx: E11.9). (Patient not taking: Reported on 01/13/2025.), Disp: 200 each, Rfl: 2 Review of Systems Constitutional: Negative. Respiratory: Negative. Cardiovascular: Negative. Gastrointestinal: Negative. Genitourinary: Negative. Past Medical History: Diagnosis Date Allergic rhinitis Arthritis Cirrhosis (HCC) Colon cancer (HCC) Diabetes mellitus (HCC) GERD (gastroesophageal reflux disease) Hyperlipidemia Hypertension Macular degeneration, wet (HCC) Obstructive lung disease (generalized) (HCC) 03/20/2022 Pacemaker SSS (sick sinus syndrome) (HCC) Past Surgical History: Procedure Laterality Date ATRIAL CARDIAC PACEMAKER INSERTION cateracts SECTION CHOLECYSTECTOMY COLONOSCOPY,BIOPSY N/A 05/29/2023 Procedure: COLONOSCOPY, WITH BIOPSY; Surgeon: Guero Ocampo MD; Location: [facility]; Service: Gastroenterology; Laterality: N/A; COLONOSCOPY,POLYPECTOMY N/A 05/29/2023 Procedure: COLONOSCOPY, WITH POLYPECTOMY; Surgeon: Guero Ocampo MD; Location: [facility]; Service: Gastroenterology; Laterality: N/A; COLONOSCOPY,SUBMUCOSAL INJECTION N/A 05/29/2023 Procedure: COLONOSCOPY, WITH DIRECTED SUBMUCOSAL INJECTION; Surgeon: Guero Ocampo MD; Location: [facility]; Service: Gastroenterology; Laterality: N/A; tattoo used EYE SURGERY cataract INSERTION/REPLACEMENT,PACEMAKER ROBOTIC LAPAROSCOPY,COLECTOMY RIGHT Right 07/26/2023 Procedure: (ROBOTIC RT COLECTOMY); Surgeon: Earnest Spaulding MD; Location: [facility] OR; Service: General Surgery; Laterality: Right; IN, 2HRS(A), [place] REQUESTED SKIN CANCER EXCISION on face TUBAL LIGATION UPPER GASTROINTESTINAL ENDOSCOPY Family History Problem Relation Name Age of Onset Heart disease Mother Hypertension Mother Diabetes Mother Heart disease Father Cancer Sister Diabetes Sister reports that she has never smoked. She has never used smokeless tobacco. She reports that she does not drink alcohol and does not use drugs. Objective: BP 136/64 (BP Location: Left arm, Patient Position: Sitting) Pulse 93 Ht 1.549 m (5' 1 ) Wt 72.6 kg (160 lb) SpO2 92% BMI 30.23 kg/m?? Body mass index is 30.23 kg/m??. Physical Exam Cardiovascular: Rate and Rhythm: Normal rate and regular rhythm. Pulmonary: Effort: Pulmonary effort is normal. Breath sounds: Normal breath sounds. Musculoskeletal: General: No swelling, tenderness, deformity or signs of injury. Right lower leg: No edema. Left lower leg: No edema. Skin: Findings: No rash. Neurological: Mental Status: She is alert. No results found for this visit on 01/13/25 (from the past 24 hours). Assessment: Problem List Items Addressed This Visit Endocrine Diabetes mellitus (HCC) - Primary (Chronic) Other Visit Diagnoses Chronic kidney disease, stage 3b (HCC) (Chronic) Thrombocytopenia (HCC) (Chronic) Chronic venous insufficiency Stasis dermatitis Cellulitis She is better finish antibiotics and recommended compression stockings. Return in about 3 months (around 04/15/2025). Keisha Tolentino APRN documented in this encounter Plan of Treatment Upcoming Encounters Date Type Department Care Team (Late st Contact Info) Description 03/01/2025 10:00 AM EST Appointment [facility] Ultrasound [address] [place] [address] Guero Ocampo MD [address] [facility] [address] [place] [address] 03/23/2025 10:30 AM EST Office Visit [facility] Gastroenterology [address] [place] [address] Guero Ocampo MD [address] [facility] [address] [place] [address] 04/19/2025 1:45 PM EST Office Visit [facility] Primary Care - [facility] [address] [place] [id number] Keisha Tolentino APRN [address] [place] [address] 07/19/2025 11:00 AM EDT Office Visit [facility] Cardiology - [place] [address] [place] [address] Silverio Victor MD [address] [facility] [address] [place] [address] documented as of this encounter Visit Diagnoses Diagnosis Type 2 diabetes mellitus without complication, without long-term current use of insulin (HCC)- Primary Chronic kidney disease, stage 3b (HCC) Thrombocytopenia (HCC) Unspecified thrombocytopenia Chronic venous insufficiency Unspecified venous (peripheral) insufficiency Stasis dermatitis Varicose veins of lower extremities with inflammation Cellulitis Cellulitis and abscess of unspecified site documented in this encounter Care Teams Zanjero Relationship Specialty Start Date End Date Keisha Tolentino, ANA [address] [place] [address] PCP - General Family Medicine 07/15/24 Marilee Angeles MD [address] [facility] [address] [place] [address] Medical Oncologist Hematology and Oncology 08/19/23 documented as of this encounter
--- OUTSIDE RECORDS SUMMARY | 2025-01-18 10:00 | XMS_ITS | Encounter Summary ---
Author Organization [employer] ([place], [place], [place], [place]) Address [address] [place] [address] Care Team Providers Care Mason Helper Name Role Phone Marilee Angeles MD Unavailable [phone] Keisha Tolentino APRN Primary Care Provider [phone] Reason for Visit * Reason Comments Palpitations Elevated Heart Rate Shortness of Breath Dizziness Encounter Details Date Type Department Care Team (Late st Contact Info) Description 01/18/2025 10:00 AM EDT Office Visit [facility] Cardiology - [place] [address] [place] [address] Silverio Victor MD [address] [facility] [address] [place] [address] MRI safe cardiac pacemaker in situ (Primary Dx); Vertigo Social History Tobacco Use Types Packs/Day Years Used Date Smoking Tobacco: Never Smokeless Tobacco: Never Alcohol Use Standard Drinks/Week Comments Never 0 (1 standard drink = 0.6 oz pur e alcohol) Caffeine use [facility] - Mental Health Answer Date Recorde [...] Do you speak a language other than [place] at [facility]? No 07/26/2023 Do you want help [...] Sex Assigned at Female 05/29/2023 7:28 AM CLINICAL TEAM MANAGER Legal Sex Female 5:18 PM CDT Gender Identity Female 05/29/2023 7:28 AM CLINICAL TEAM MANAGER Sexual Orientation Not on file documented as of this encounter Last Filed Vital Signs Vital Sign Reading Time Taken Comments Blood Pressure 120/70 01/18/2025 9:53 AM EDT Pulse 88 01/18/2025 9:53 AM EDT Temperature - - Respiratory Rate 20 01/18/2025 9:53 AM EDT Oxygen Saturation 99% 01/18/2025 9:53 AM EDT Inhaled Oxygen Concentration - - Weight 72.1 kg (159 lb) 01/18/2025 9:53 AM EDT Height 154.9 cm (5' 1 ) 01/18/2025 9:53 AM EDT Body Mass Index 30.04 01/18/2025 9:53 AM EDT documented in this encounter Progress Notes * Silverio Victor MD - 01/18/2025 10:00 AM EDT CARDIOLOGY FOLLOW UP EVALUATION Date of Service: 01/18/2025 NAME: Carol Rush : 1940 AGE: 84 y.o. PCP: Keisha Tolentino APRN Chief Complaints Chief Complaint Patient presents with Palpitations Elevated Heart Rate Shortness of Breath Dizziness History of Present Illness This 84 she has done [id number] female is here for post operative evaluation for ascending and partial transverse colectomy. She has multiple sites of colon cancer on colonoscopy. She has recovered nicely. She failed stool genetic testing, and then colonoscopy. She has mild diarrhea now. She has done well. BP and pulse are fine. Wounds are healed. No infection or post complication. Shefeels very nelly. She is otherwise asymptomatic. She has a chronic dual-chamber pacemaker of Medtronic brand, with no problems and no arrhythmia.. She does not have chest pain or heart failure. Thereis no pedal edema, palpitations or fluttering. There is no TIA or stroke or syncope or near syncope. Blood pressure is well-controlled. She is tolerating medications well. She does not smoke or drink. She is up-to-date on her medications. She does not have a diagnosis of sleep apnea. She is mildly diabetic on a low-dose of glyburide each day. She has a history of GERD and hyperlipidemia. She is having occas Vertigo again, out of Meclizine. PMH and PSH are reviewed Habits reviewed Meds and allergies reviewed Past note reviewed 01/2024, 07/2024 ROS performed Notes and labs per primary care, 11/18/2023 reviewed Laboratory data, 12/10/2023 reviewed: Creatinine 1.19, GFR 45, albumin 2.6, hemoglobin A1c 5.8, TSH 1.048 CBC shows white count 6400, hemoglobin 10.8, MCV 106, RDW 13, platelets 134,000 Iron levels 82, TIBC 279, percent sat 29, UIBC 197 Vitamin B12 455 Folate 61 Review of Systems Review of Systems All other systems reviewed and are negative. Current Medications Current Outpatient Medications Medication Sig Dispense Refill biotin 10,000 mcg cap Take 1 capsule by mouth daily. blood sugar diagnostic (Accu-Chek Guide test strips) strp 1 each daily. 100 strip 0 blood sugar diagnostic (glucose blood) strp Test 2 to 4 Time A Day (Dx: E11.9). 200 strip 2 famotidine (PEPCID) 40 MG tablet Take 1 tablet (40 mg total) by mouth every night as needed for heartburn. 90 tablet 1 ferrous sulfate 137 mg (45 mg iron) TbER Take by mouth. glucometer (Accu-Chek Guide Glucose Meter) misc As Directed.. 1 each 0 glyBURIDE (DIABETA) 2.5 MG tablet Take 1 tablet (2.5 mg total) by mouth daily with breakfast. 90 tablet 1 lancets misc daily. 100 each 0 lisinopriL (ZESTRIL) 40 MG tablet Take 1 tablet (40 mg total) by mouth daily. 90 tablet 1 metoprolol succinate (TOPROL-XL) 50 MG 24 hr tablet Take 1 tablet (50 mg total) by mouth daily. 30 tablet 1 multivitamin with minerals tablet Take 1 tablet by mouth daily. omeprazole (PriLOSEC) 40 MG capsule Take 1 capsule (40 mg total) by mouth Daily (0600). 90 capsule 1 simvastatin (ZOCOR) 10 MG tablet Take 1 tablet (10 mg total) by mouth nightly. 90 tablet 1 vit C,C-Zg-rhypw-lutein-zeaxan (PreserVision AREDS-2) 250-90-40-1 mg Cap Take 1 capsule by mouth 2 (two) times daily. cholecalciferol, vitamin D3, 50 mcg (2,000 unit) cap Take 1 capsule (2,000 Units total) by mouth daily. (Patient not taking: Reported on 01/18/2025.) diclofenac sodium 1 % gel Apply 2 g topically 3 (three) times daily as needed (joint pain) for up to 180 days. (Patient not taking: Reported on 01/18/2025.) 100 g 1 meclizine (ANTIVERT) 25 mg tablet Take 0.5 tablets (12.5 mg total) by mouth as needed for dizziness. 90 tablet 1 No current facility-administered medications for this visit. Physical Exam BP 120/70 (BP Location: Left arm, Patient Position: Sitting) Pulse 88 Resp 20 Ht 1.549 m (5' 1 ) Wt 72.1 kg (159 lb) SpO2 99% BMI 30.04 kg/m?? Physical Exam Constitutional: Appearance: Normal appearance. Patient is normal weight. HENT: Head: Normocephalic and atraumatic. Right Ear: External ear normal. Left Ear: External ear normal. Nose: Nose normal. Mouth/Throat: Pharynx: Oropharynx is clear. Eyes: Extraocular Movements: Extraocular movements intact. Conjunctiva/sclera: Conjunctivae normal. Pupils: Pupils are equal, round, and reactive to light. Cardiovascular: Rate and Rhythm: Normal rate and regular rhythm. Pulses: Normal pulses. Heart sounds: Normal heart sounds. PPM site is fine Pulmonary: Effort: Pulmonary effort is normal. Breath sounds: Normal breath sounds. Abdominal: General: Abdomen is flat. Bowel sounds are normal. Palpations: Abdomen is soft. Wound looks good with excellent healing Musculoskeletal: General: Normal range of motion. Cervical back: Normal range of motion and neck supple. Skin: General: Skin is warm and dry. Capillary Refill: Capillary refill takes less than 2 seconds. Neurological: General: No focal deficit present. Mental Status: He is alert and oriented to person, place, and time. Mental status is at baseline. Psychiatric: Mood and Affect: Mood normal. Behavior: Behavior normal. Thought Content: Thought content normal. Judgment: Judgment normal. Medtronic pacemaker dual-chamber, normal assessment, normal programming, no alarms, >6.0 years left on the battery EKG shows atrial pacing, normal ST and T waves Assessment 1. MRI safe cardiac pacemaker in situ Pacemaker Check 2. Vertigo meclizine (ANTIVERT) 25 mg tablet Medtronic, dual-chamber device, greater than 6 years left on battery Sick sinus syndrome Bifascicular block Previous nocturnal palpitations Hypertension Chronic dual-chamber pacemaker, Medtronic Diabetes Mellitus type 2 GERD Hyperlipidemia DJD Peripheral neuropathy Borderline renal function Chronic history of water aversion, prone to dehydration Constipation Status postcholecystectomy Kidney stone history Migraine history Vertigo Remote pneumonia S/p colon cancer S/p partial colectomy for cancer Iron deficiency anemia Mixed hyperlipidemia Macular degeneration Plan No change in diet Stop aspirin Retry meclizine 12.5 BID and prn vertigo, #90 with 1 refill Does not smoke or drink Eat more protein Continue daily low intensity exercise Medicines stay otherwise the same Discussed pacemaker interrogation results, all normal See me in 6 months with Medtronic DDD pacemaker reassessment Call for questions or problems Hand written instruction provided Can consider addition of amiodarone or propafenone later if the patient develops further problems or recurrent problems with atrial fibrillation. She has a surprisingly low CHADs score of 1. I do notthink she would benefit from NOAC therapy. Copy to Dr. Earnest Spaulding Past Medical History Past Surgical History Past Surgical History: Procedure Laterality Date ATRIAL CARDIAC PACEMAKER INSERTION cateracts SECTION CHOLECYSTECTOMY COLONOSCOPY,BIOPSY N/A 05/29/2023 Procedure: COLONOSCOPY, WITH BIOPSY; Surgeon: Guero Ocampo MD; Location: [facility]; Service: Gastroenterology; Laterality: N/A; COLONOSCOPY,POLYPECTOMY N/A 05/29/2023 Procedure: COLONOSCOPY, WITH POLYPECTOMY; Surgeon: Guero Ocampo MD; Location: [facility]; Service: Gastroenterology; Laterality: N/A; COLONOSCOPY,SUBMUCOSAL INJECTION N/A 05/29/2023 Procedure: COLONOSCOPY, WITH DIRECTED SUBMUCOSAL INJECTION; Surgeon: Guero Ocampo MD; Location: [facility]; Service: Gastroenterology; Laterality: N/A; tattoo used EYE SURGERY cataract INSERTION/REPLACEMENT,PACEMAKER ROBOTIC LAPAROSCOPY,COLECTOMY RIGHT Right 07/26/2023 Procedure: (ROBOTIC RT COLECTOMY); Surgeon: Earnest Spaulding MD; Location: [facility] OR; Service: General Surgery; Laterality: Right; [place], 2HRS(A), [place] REQUESTED SKIN CANCER EXCISION on face TUBAL LIGATION UPPER GASTROINTESTINAL ENDOSCOPY Allergies No Known Allergies Social History Social History Tobacco Use Smoking status: Never Smokeless tobacco: Never Vaping Use Vaping status: Never Used Substance Use Topics Alcohol use: Never Comment: Caffeine use Drug use: Never documented in this encounter Plan of Treatment Upcoming Encounters Date Type Department Care Team (Late st Contact Info) Description 03/01/2025 10:00 AM EST Appointment [facility] Ultrasound [address] [place] [address] Guero Ocampo MD [address] [facility] [address] [place] [address] 03/23/2025 10:30 AM EST Office Visit [facility] Gastroenterology [address] [place] [address] Guero Ocampo MD [address] [facility] [address] [place] [address] 04/19/2025 1:45 PM EST Office Visit [facility] Primary Care - [facility] [address] [place] [address] Keisha Tolentino APRN [address] [place] [address] 07/19/2025 11:00 AM EDT Office Visit [facility] Cardiology - [address] [address] Silverio Victor MD [address] [facility] [address] [place], [place] [id number] Scheduled Orders Name Type Priority Associated Diagnoses Orde r Schedule Pacemaker Check ECG Routine MRI safe cardiac pacemaker in situ Ordered: 01/18/2025 documented as of this encounter Visit Diagnoses Diagnosis MRI safe cardiac pacemaker in situ- Primary Vertigo Dizziness and giddiness documented in this encounter Care Teams Mason Helper Relationship Specialty Start Date End Date Keisha Tolentino APRN [address] [place] [id number] PCP - General Family Medicine 07/15/24 Marilee Angeles MD [address] [facility] [address] [place] [address] Medical Oncologist Hematology and Oncology 08/19/23 documented as of this encounter
[2025-01-19 15:33] VITALS: BP 175/71; PULSE 72; RESP 18; TEMP 36.8; O2SAT 98; BMI 29.8
--- NOTE | 2025-01-19 15:48 | PC.NURSE ---
1540- patient offered to go to treatment room 12 versus back out to the lobby. patient educated that family/visitors were restricted in the chair room due to potentially containing other patients. patient understood and said that she was okay with sitting in the chair room. family/visitors present with her were told that if she were to move to a bigger room at any point we would bring family/visitors back at that time. patient taken to treatment chair 12 and placed on monitor. handoff given to KATERIN Frank
--- OUTSIDE RECORDS SUMMARY | 2025-01-19 15:51 | XMS_ITS | Encounter Summary ---
Author Organization [employer] ([place], [place], [place], [place]) Address [address] [place] [address] Care Team Providers Care Production Cook Name Role Phone Dre William MD Primary Care Provider Marilee Angeles MD Unavailable [phone] Keisha Tolentino APRN Primary Care Provider [phone] Reason for Referral * Diagnostic X-Ray (Routine) - Closed Specialty Diagnoses / Procedures Referred By Contac t Referred To Contact Diagnoses Personal history of urinary calculi Procedures XR KUB PORTABLE Joi Yu APRN [address] , [facility] [address] [place] [address] Phone: tel: fax: Referral ID Status Reason Start Date Expiration Date Visits Re quested Visits Authorized [id number] Closed 12/04/2023 12/03/2024 1 1 Encounter Details Date Type Department Care Team (Late st Contact Info) Description 12/04/2023 Outside Orders [facility] Admitting [address] [place] [id number] Joi Yu APRN [address], [place] [address] [place] [address] Personal history of urinary calculi (Primary Dx) Social History Tobacco Use Types [...] Do you speak a language other than Indonesian at [facility]? No 07/26/2023 Do you want help [...] Sex Assigned at Female 05/29/2023 7:28 AM CHROME TANNER Legal Sex Female 5:18 PM CDT Gender Identity Female 05/29/2023 7:28 AM CHROME TANNER Sexual Orientation Not on file documented as [...] Jace Emery documented as of this encounter Plan of Treatment Upcoming Encounters Date Type Department Care Team (Late st Contact Info) Description 03/01/2025 10:00 AM EST Appointment [facility] Ultrasound [address] [place] [address] Guero Ocampo MD [address] [facility] [address] [place] [address] 03/23/2025 10:30 AM EST Office Visit [facility] Gastroenterology [address] [place] [address] Guero Ocampo MD [address] [facility] [address] [place] [id number] 04/19/2025 1:45 PM EST Office Visit [facility] Primary Care - [facility] [address] [place] [address] Keisha Tolentino APRN [address] [place] [address] 07/19/2025 11:00 AM EDT Office Visit [facility] Cardiology - [place] [address] [place] [address] Silverio Victor MD [address] [facility] [address] [place] [id number] documented as of this encounter Results * XR KUB PORTABLE (12/04/2023 11:16 AM EDT) Anatomical Region Laterality Modality Abdomen X-Ray 12/04/2023 11:4 9 AM EDT Impressions 12/04/2023 1:18 PM EDT Nonspecific but nonobstructive bowel gas pattern. No renal stones identified. Images reviewed, interpreted, and dictated by Dr. Katiuska Wilson. Transcribed by Lisa Arias PA-C. Narrative 12/04/2023 1:18 PM EDT SINGLE VIEW ABDOMEN HISTORY: Abdominal pain, colorectal cancer. COMPARISON: July 2023. ABDOMEN: A single view of the abdomen demonstrates a nonspecific but nonobstructive bowel gas pattern. No renal stones are identified. There are no acute osseous abnormalities identified. Procedure Note Katiuska Wilson MD - 12/04/2023 SINGLE VIEW ABDOMEN HISTORY: Abdominal pain, colorectal cancer. COMPARISON: July 2023. ABDOMEN: A single view of the abdomen demonstrates a nonspecific but nonobstructive bowel gas pattern. No renal stones are identified. There are no acute osseous abnormalities identified. IMPRESSION: Nonspecific but nonobstructive bowel gas pattern. No renal stones identified. Images reviewed, interpreted, and dictated by Dr. Katiuska Wilson. Transcribed by Lisa Arias PA-C. Joi Ac Gigi PEREZ IMG DIAGNOSTIC IMAGING ORD ERABLES Final Result documented in this encounter Visit Diagnoses Diagnosis Personal history of urinary calculi- Primary Personal history of urinary calculi documented in this encounter Care Teams Production Cook Relationship Specialty Start Date End Date Dre William MD PCP - General Family Medicine 01/08/22 07/14/24 Keisha Tolentino APRN [address] [place] [address] PCP - General Family Medicine 07/15/24 Marilee Angeles MD [address] [address] Medical Oncologist Hematology and Oncology 08/19/23 documented as of this encounter
--- OUTSIDE RECORDS SUMMARY | 2025-01-19 15:51 | XMS_ITS | Referral Summary ---
Author Organization [employer] ([place], [place], [place], [place]) Address [address] [place] [address] Care Team Providers Care Salesforce Developer Name Role Phone Marilee Angeles MD Unavailable [phone] Keisha Tolentino APRN Primary Care Provider [phone] Encounters Date Type Department Care Team Description 01/18/2025 10:00 AM EDT Office Visit [facility] Cardiology - [address] [address] Silverio Victor MD MRI safe cardiac pacemaker in situ (Primary Dx); Vertigo 01/13/2025 Travel 01/13/2025 2:45 PM EDT Office Visit [address] [address] Keisha Tolentino APRN Type 2 diabetes mellitus without complication, without long-term current use of insulin (HCC) (Primary Dx); Chronic kidney disease, stage 3b (HCC); Thrombocytopenia (HCC); Chronic venous insufficiency; Stasis dermatitis; Cellulitis 01/11/2025 Orders Only [address] [address] Melecio Emeryh 01/11/2025 Orders Only [address] [address] Jace Emery 01/07/2025 Orders Only [address] [address] Jace Emery Type 2 diabetes mellitus without complication, without long-term current use of insulin (HCC) (Primary Dx) 01/07/2025 2:45 PM EDT Lab Patient Walk-In [facility] [address] [place] [address] SSS (sick sinus syndrome) (HCC) (Primary Dx); Hypertension; Obstructive lung disease (generalized) (HCC); Malignant neoplasm of transverse colon (HCC); Diabetes mellitus (HCC); Encounter for adjustment or management of cardiac device; MRI safe cardiac pacemaker in situ 01/07/2025 Travel 01/07/2025 11:30 AM EDT Office Visit [address] [address] Keisha Tolentino APRN GERD (gastroesophageal reflux disease) (Primary Dx); Hyperlipidemia, unspecified; Essential (primary) hypertension; Type 2 diabetes mellitus without complication, without long-term current use of insulin (HCC); Chronic kidney disease, stage 3b (HCC); Polyarthropathy; Pacemaker; Cirrhosis (HCC); Varicose veins of ankle; Cellulitis; Stasis dermatitis; Chronic venous insufficiency; Thrombocytopenia (HCC) 01/01/2025 Travel 01/01/2025 2:30 PM EDT Treatment [facility] Physical Therapy [address] [place] [address] Konrad Haynes, PT Left hip pain (Primary Dx); Gait instability 12/30/2024 Travel 12/30/2024 1:45 PM EDT Treatment [facility] Physical Therapy [address] [place] [address] Konrad Haynes, PT Left hip pain (Primary Dx); Gait instability 12/25/2024 Travel 12/25/2024 2:30 PM EDT Treatment [facility] Physical Therapy [address] [place] [address] Frodge, Konrad, PT Left hip pain (Primary Dx); Gait instability 12/23/2024 Travel 12/23/2024 2:45 PM EDT Treatment [facility] Physical Therapy [address] [place] [phone] Frofatoumatae Konrad, PT Left hip pain (Primary Dx); Gait instability 12/18/2024 Travel 12/18/2024 3:15 PM EDT Treatment [facility] Physical Therapy [address] [place] [phone] Frofatoumatae Konrad, PT Left hip pain (Primary Dx); Gait instability 12/15/2024 Travel 12/15/2024 3:15 PM EDT Treatment [facility] Physical Therapy [address] [place] [phone] FroKonrad nelson, PT Left hip pain (Primary Dx); Gait instability 12/11/2024 Travel 12/11/2024 1:00 PM EDT Treatment [facility] Physical Therapy [address] [place] [address] Konrad Haynes, PT Left hip pain (Primary Dx); Gait instability 12/09/2024 Travel 12/09/2024 3:15 PM EDT Treatment [facility] Physical Therapy [address] [place] [phone] Konrad Haynes, PT Left hip pain (Primary Dx); Gait instability 12/04/2024 Travel 12/04/2024 1:45 PM EDT Treatment [facility] Physical Therapy [address] [place] [phone] FroKonrad nelson, PT Left hip pain (Primary Dx); Gait instability 11/30/2024 Travel 11/30/2024 Orders Only [facility] Primary Care - [facility] [address] [place] [address] Keisha Tolentino, BARREL WASHER Anemia (Primary Dx) 11/30/2024 3:15 PM EDT Treatment [facility] Physical Therapy [address] [place] [phone] Konrad Haynes, PT Left hip pain (Primary Dx); Gait instability 11/27/2024 3:00 PM EDT Lab Patient Walk-In [facility] [address] [place] [phone] Elevated alkaline phosphatase level (Primary Dx) 11/25/2024 Orders Only [facility] Care - [address] [address] Jace Emery 11/23/2024 Travel 11/23/2024 2:30 PM EDT Office Visit [facility] - [address] [address] Keisha Tolentino APRN Polyarthropathy (Primary Dx); Muscle strain; Type 2 diabetes mellitus without complications (HCC); Chronic kidney disease, stage 3b (HCC); Gait instability; Left hip pain; Primary hypertension; Neck strain 11/18/2024 Travel 11/18/2024 10:15 AM EDT Treatment [facility] Physical Therapy [address] [place] [phone] Konrad Haynes, PT Left hip pain (Primary Dx); Gait instability 11/16/2024 Travel 11/16/2024 10:15 AM EDT Treatment [facility] Physical Therapy [address] [place] [phone] Konrad Haynes, PT Left hip pain (Primary Dx); Gait instability 11/11/2024 Travel 11/11/2024 11:15 AM EDT Treatment [facility] Physical Therapy [address] [place] [phone] Konrad Haynes, PT Left hip pain (Primary Dx); Gait instability 11/09/2024 Travel 11/09/2024 3:15 PM EDT Treatment [facility] Physical Therapy [address] [place] [phone] Konrad Haynes, PT Left hip pain (Primary Dx); Gait instability 11/05/2024 Travel 11/05/2024 11:00 AM EDT Evaluation [facility] Physical Therapy [address] [place] [address] Konrad Haynes, PT Left hip pain (Primary Dx); Gait instability 11/02/2024 2:08 PM EDT - 11/02/2024 11:59 PM EDT Hospital Encounter [facility] Diagnostic Imaging [address] [place] [phone] Left hip pain Discharge Disposition: Home or Self Care 11/02/2024 Travel 11/02/2024 1:30 PM EDT Office Visit [facility] Primary Care - [facility] [address] [place] [address] Keisha Tolentino APRN Type 2 diabetes mellitus without complication, without long-term current use of insulin (HCC) (Primary Dx); Chronic kidney disease, stage 3b (HCC); Left hip pain; Gait instability; Groin pain, left; Muscle strain 10/19/2024 Travel 10/19/2024 1:14 PM EDT - 10/19/2024 11:59 PM EDT Hospital Encounter [facility] Nuclear Medicine [address] [place] [phone] Screening for osteoporosis Discharge Disposition: Home or Self Care from Last 3 Months Allergies No known active allergies Medications multivitamin with minerals tablet Take 1 tablet by mouth daily. Active vit C,K-Yh-ffpxe-lute in-zeaxan (PreserVision AREDS-2) 250-90-40-1 mg Cap Take 1 capsule by mouth 2 (two) times daily. Active ferrous sulfate 137 mg (45 mg iron) TbER Take by mouth. Acti ve biotin 10,000 mcg cap Take 1 capsule by mouth daily. Active blood sugar diagnostic (glucose blood) strp Test 2 to 4 Time A Day (Dx: E11.9). 200 strip 2 07/02/19 25 Active glyBURIDE (DIABETA) 2.5 MG tabletIndications :Type 2 diabetes mellitus without complications (HCC) Take 1 tablet (2.5 mg total) by mouth daily with breakfast. 90 tablet 1 10/08/19 25 Active lisinopriL (ZESTRIL) 40 MG tabletIndications :Essential (primary) hypertension Take 1 tablet (40 mg total) by mouth daily. 90 tablet 1 10/08/19 25 Active simvastatin (ZOCOR) 10 MG tabletIndications :Hyperlipidemia, unspecified Take 1 tablet (10 mg total) by mouth nightly. 90 tablet 1 10/08/19 25 Active omeprazole (PriLOSEC) 40 MG capsuleIndication s:Gastro-esophage al reflux disease without esophagitis Take 1 capsule (40 mg total) by mouth Daily (0600). 90 capsule 1 10/08/19 25 Active famotidine (PEPCID) 40 MG tabletIndications :Gastro-esophagea l reflux disease without esophagitis Take 1 tablet (40 mg total) by mouth every night as needed for heartburn. 90 tablet 1 10/08/19 25 Active cholecalciferol, vitamin D3, 50 mcg (2,000 unit) cap Take 1 capsule (2,000 Units total) by mouth daily. Active diclofenac sodium 1 % gelIndications:Po lyarthropathy Apply 2 g topically 3 (three) times daily as needed (joint pain) for up to 180 days. 100 g 1 11/24/19 25 026 Active Additional Information Patient not taking.Reported on 01/18/2025 metoprolol succinate (TOPROL-XL) 50 MG 24 hr tablet Take 1 tablet (50 mg total) by mouth daily. 30 tablet 1 11/26/19 25 Active glucometer (Accu-Chek Guide Glucose Meter) miscIndications:T ype 2 diabetes mellitus without complication, without long-term current use of insulin ([facility]) As Directed.. 1 each 01/08/20 25 Active blood sugar diagnostic (Accu-Chek Guide test strips) strpIndications:T ype 2 diabetes mellitus without complication, without long-term current use of insulin ([facility]) 1 each daily. 100 strip 01/08/20 25 Active lancets misc daily. 100 each 01/12/20 25 Active meclizine (ANTIVERT) 25 mg tabletIndications :Vertigo Take 0.5 tablets (12.5 mg total) by mouth as needed for dizziness. 90 tablet 1 01/19/20 Active lancets misc Test 2 to 4 Times A Day (Dx: E11.9). 200 each 2 07/02/19 025 Discontinu ed(Duplica te Therapy) doxycycline (ADOXA) 100 MG tabletIndications :Cellulitis Take 1 tablet (100 mg total) by mouth 2 (two) times daily for 10 days. 20 tablet 01/08/20 025 cephalexin (KEFLEX) 500 MG capsuleIndication s:Cellulitis Take 2 capsules (1,000 mg total) by mouth 2 (two) times daily for 10 days. 40 capsule 01/08/20 025 triamcinolone (KENALOG) 0.1 % topical creamIndications: Stasis dermatitis Apply topically 2 (two) times daily for 7 days to affected area.. 28.4 g 1 01/08/20 025 LANCETS MISC 1 Lancet daily. 025 Discontinu ed(Reorder ) Hospital, Clinic, or Other Facility Administered Medication Ordered Dose Route Frequency Start Date End Date Status lancets misc 1 eachIndications:Type 2 diabetes mellitus without complication, without long-term current use of insulin (HCC) 1 each Misc Daily 01/07/2025 01/11/2025 Discontinue d Active Problems Problem Noted Date Diagnosed Date Encounter for adjustment or management of cardia c device 05/07/2024 Malignant neoplasm of transverse colon 4 Cancer Staging:Pathologic:Stage IIA(pT3, pN0, cM0) - Signed by Marilee Angeles MD on 08/19/2023 MRI safe cardiac pacemaker in situ 05/29/2023 SSS (sick sinus syndrome) 05/29/2023 Diabetes mellitus 05/29/2023 Hypertension 05/29/2023 Obstructive lung disease (generalized) 2 Resolved Problems Problem Noted Date Diagnosed Date Resolved Date Lung nodule 03/20/2022 09/12/2023 Dyspnea, unspecified type 03/20/2022 Diaphragmatic hernia without obstruction and without gangrene 02/14/2022 09/12/2023 Wheezing 02/14/2022 09/12/2023 Opacity of lung on imaging study 02/14/2022 09/12/2023 Atelectasis 02/14/2022 09/12/2023 Cough, unspecified type 02/14/202208/15 Social History Tobacco Use Types Packs/Day Years Used Date Smoking Tobacco: Never Smokeless Tobacco: Never Tobacco Cessation:Counseling Given: Not Answered Alcohol Use Standard Drinks/Week Comments Never 0 (1 standard drink = 0.6 oz pur e alcohol) Caffeine use [facility] - Mental Health Answer Date [...] Do you speak a language other than Pakistani at ho id? 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 [employer] Sexual Orientation Not on file Last Filed Vital Signs Vital Sign Reading Time Taken Comments Blood Pressure 120/70 01/18/2025 9:53 AM EDT Pulse 88 01/18/2025 9:53 AM EDT Temperature 36.3 C (97.3 F) 10/24/2023 10:40 AM EDT Respiratory Rate 20 01/18/2025 9:53 AM EDT Oxygen Saturation 99% 01/18/2025 9:53 AM EDT Inhaled Oxygen Concentration - - Weight 72.1 kg (159 lb) 01/18/2025 9:53 AM EDT Height 154.9 cm (5' 1 ) 01/18/2025 9:53 AM EDT Body Mass Index 30.04 01/18/2025 9:53 AM EDT Plan of Treatment Upcoming Encounters Date Type Department Care Team (Late st Contact Info) Description 03/01/2025 10:00 AM EST Appointment [facility] Ultrasound [address] [place] [phone] Guero Ocampo MD [address] [facility] [address] [place] [address] 03/23/2025 10:30 AM EST Office Visit [facility] Gastroenterology [address] [facility] [address] [place] [address] Guero Ocampo MD [address] [facility] [address] [place] [address] 04/19/2025 1:45 PM EST Office Visit [facility] Primary Care - [facility] [address] [place] [address] Keisha Tolentino APRN [address] [place] [address] 07/19/2025 11:00 AM EDT Office Visit [facility] Cardiology - [place] [address] [place] [address] Silverio Victor MD [address] [place] [address] Medical Devices Implanted Type Area Patient Service Associate Device Identifier Shelf Expiration Date Model / Serial / Lot Pacemakers-01/06 Implanted:01/06 by Urbano Price MD (Quantity not on file) Pacemakers [employer] K[employer]SE[employer] / [id number] / Procedures Procedure Name Priority Date/Time Associated Diagnosis Comments FOLATE, SERUM Routine 01/07/2025 12:29 PM EDT [...] device MRI safe cardiac pacemaker in situ PROTEIN ELECTROPHORESIS W RFLX TO JOE(SENDOUT) Routine 01/07/2025 12:29 PM EDT SSS (sick sinus syndrome) (HCC) Hypertension Obstructive lung disease (generalized) (HCC) Malignant neoplasm of transverse colon (HCC) Diabetes mellitus (HCC) Encounter for adjustment or management of cardiac device MRI safe cardiac pacemaker in situ CYCLIC CITRULLINATED PEPTIDE (CCP) IGG/A (SENDOUT) Routine 11/27/2024 1:38 PM EDT Elevated alkaline phosphatase level RHEUMATOID FACTOR(SENDOUT) Routine 11/27/2024 1:38 PM EDT Elevated alkaline phosphatase level MURALI REFLEXIVE PROFILE(SENDOUT) Routine 11/27/2024 1:38 PM EDT Elevated alkaline phosphatase level CBC W/ AUTO DIFF Routine 11/27/2024 1:38 PM EDT Elevated alkaline phosphatase level SEDIMENTATION RATE Routine 11/27/2024 1: 38 PM [...] 25-HYDROXY Routine 11/27/2024 1:38 PM EDT Polyarthropathy XR HIP 2 VIEWS LEFT Routine 11/02/2024 2 :14 PM EDT Left hip pain DXA BONE DENSITY SPINE AND HIP Routine 10/19/2024 1:31 PM EDT Screening for osteoporosis from Last 3 Months Results * (ABNORMAL) Protein Electrophoresis w Rflx to JOE(SENDOUT) (01/07/2025 12:29 PM EDT) Total Protein, Serum 6.4 6.3 - 8.2 g/dL 01/10/2025 8:18 AM EDT [email or web address] Albumin 3.49(L) 3.75 - 5.01 g/dL 01/10/2025 8:18 AM EDT [facility] Alpha 1 Globulin 0.25 0.19 - 0.46 g/dL 01/10/2025 8:18 AM EDT [facility] Alpha 2 Globulin 0.79 0.48 - 1.05 g/dL 01/10/2025 8:18 AM EDT [facility] Beta Globulin 0.79 0.48 - 1.10 g/dL 01/10/2025 8:18 AM EDT [email or web address] Gamma 1.08 0.62 - 1.51 g/dL 01/10/2025 8:18 AM EDT [facility] Immunofixation Reflex Not Done 01/10/2025 8:18 AM T [facility] Comment: Caution: Reflex to Immunofixation electrophoresis (JOE)is not indicated per results of protein electrophoresis. Immunofixation electrophoresis is a more sensitive technique than serum protein electrophoresis for the identification of small M-proteins found in patients with amyloidosis, early or treated myeloma and macroglobulinemia, MGUS, solitary plasmacytoma,and extramedullary plasmacytoma. Monoclonal Protein Not Applicable <=0.00 g/dL 01/10/2025 8:18 AM [facility] SPEP/JOE Interpretation See Note 01/10/2025 8:18 AM T [facility] Comment:Serum protein electr ophoresis is negative for monoclonal protein. EER Serum Protein Electrophoresis Reflex See Note 01/10/2025 8:18 AM T [facility] [[email or web address]] [employer] Comment: Authorized individuals can access the [employer] Enhanced Report with an [employer] Connect account using the following link. Your local lab can assist you in obtaining the patient report if you don't have a Connect account. [email or web address] Performed By: [employer] [address] [place] [id number] Supervisor Warping Department: Jacinto Wolfe MD, PhD CLIA Number: [id number] Blood Venipuncture / Unknown 01/07/2025 12:29 PM EDT 01/07/2025 12:40 PM EDT Keisha Tolentino APRN LAB BLOOD ORDERABLES Final Result [facility] [address] [place] [address], [facility] [phone] * Folate, Serum (01/07/2025 12:29 PM EDT) Pathologist [facility] Folate 18.7 7.0 - 31.4 ng/mL 01/08/2025 12:14 AM EDT [facility] Blood Venipuncture / Unknown 01/07/2025 12:29 PM EDT 01/07/2025 12:40 PM EDT Keisha Schabrennan BARREL WASHER LAB BLOOD ORDERABLES Final Result [facility] [address] [phone] * Vitamin B12 (01/07/2025 12:29 PM EDT) [facility] Vitamin B12 567 213 - 816 pg/mL 01/08/2025 12:14 AM EDT [facility] Blood Venipuncture / Unknown 01/07/2025 12:29 PM EDT 01/07/2025 12:40 PM EDT [facility]isha [facility] BARREL WASHER LAB BLOOD ORDERABLES Final Result [facility] [address] [phone] * Cyclic Citrullinated Peptide (CCP) IgG/A (SENDOUT) (11/27/2024 1:38 PM EDT) Pathologist [facility] Cyclic Citrullinated Peptide Ab, IgG/A 6 0 - 19 Units 11/29/2024 4:26 AM EDT [facility] Comment: INTERPRETIVE INFORMATION: Cyclic Citrullinated Peptide Ab, [...] be monitored and testing repeated. Performed By: [employer] [address] [id number] Supervisor Warping Department: Jacinto Wolfe MD, PhD CLIA Number: [id number] Blood Venipuncture / Unknown 11/27/2024 1:38 PM EDT 11/27/2024 1:39 PM EDT Keisha Tolentino APRN LAB BLOOD ORDERABLES Final Result Performing Organization Address City/State/ZIP Co ga Phone Number [facility] [address] [place], [place] [id number], [facility] [phone] * (ABNORMAL) CBC with automated diff (11/27/2024 1:38 PM EDT) WBC 5.2 4.8 - 10.8 K/ L 11/27/2024 1:57 PM EDT [facility] RBC 3.18(L) 3.50 - 5.20 M/ L 11/27/2024 1:57 PM EDT [facility] Hemoglobin 11.1(L) 11.7 - 15.8 GM/DL 11/27/2024 1:57 PM EDT [facility] Hematocrit 33.9(L) 35.0 - 47.0 % 11/27/2024 1:57 PM EDT [facility] MCV 107(H) 81 - 101 fL 11/27/2024 1:57 PM EDT [facility] MCH 34.9(H) 27.0 - 34.0 pg 11/27/2024 1:57 PM EDT [facility] MCHC 32.7 32.0 - 36.0 GM/DL 11/27/2024 1:57 PM EDT [facility] RDW 12.8 11.5 - 14.5 % 11/27/2024 1:57 PM EDT [facility] Platelets 113(L) 150 - 400 K/CU MM 11/27/2024 1:57 PM EDT [facility] MPV 10.4 9.4 - 12.4 fL 11/27/2024 1:57 PM EDT [facility] Nucleated Red Blood Cell 0.0 0 - 0.2 % 11/27/2024 1:57 PM EDT [facility] % Neutros 40 37 - 80 % 11/27/2024 1:57 PM EDT [facility] % Lymphs 45 10 - 50 % 11/27/2024 1:57 PM EDT [facility] % Monos 9 5 - 13 % 11/27/2024 1:57 PM EDT [facility] % Eos 4 0 - 7 % 11/27/2024 1:57 PM EDT [facility] % Baso 1 0 - 3 % 11/27/2024 1:57 PM EDT [facility] NRBC Absolute <0.01 0 - 0.012 K/ul 11/27/2024 1:57 PM EDT [facility] # Neutros 2.09 2.00 - 6.90 K/ L 11/27/2024 1:57 PM EDT [facility] # Lymphs 2.35 0.60 - 3.40 K/ L 11/27/2024 1:57 PM EDT [facility] # Monos 0.48 0.00 - 0.90 K/ L 11/27/2024 1:57 PM EDT [facility] # Eos 0.21 0.00 - 0.70 K/ L 11/27/2024 1:57 PM EDT [facility] # Baso 0.03 0.00 - 0.20 K/ L 11/27/2024 1:57 PM EDT [facility] Immature Granulocytes-Re lative 0.40 % 11/27/2024 1:57 PM EDT [facility] # IG 0.02(H) 0.00 - 0.00 K/uL 11/27/2024 1:57 PM EDT [facility] Blood Venipuncture / Unknown 11/27/2024 1:38 PM EDT 11/27/2024 1:39 PM EDT Narrative [facility] - 11/27/2024 1:57 PM EDT [...] Atypical Lymph flag noted us Keisha Tolentino APRN LAB BLOOD ORDERABLES Final Result [facility] [address] [place] [address] * Rheumatoid Factor(SENDOUT) (11/27/2024 1:38 PM EDT) Rheumatoid Factor <10 0 - 14 IU/mL 11/29/2024 2:31 AM EDT [facility] Comment: Performed By: [employer] [address] [place] [id number] Supervisor Warping Department: Jacinto Wolfe MD, PhD CLIA Number: [id number] Blood Venipuncture / Unknown 11/27/2024 1:38 PM EDT 11/27/2024 1:39 PM EDT Keisha Tolentino APRN LAB BLOOD ORDERABLES Final Result Performing Organization Address City/[facility]/ZIP Co de Phone Number [facility] [address] [place], [place] [id number], [facility] [phone] * MURALI Reflexive Profile(SENDOUT) (11/27/2024 1:38 PM EDT) Anti-Nuclear Ab (MURALI), IgG by [facility] None Detected None Detected 11/29/2024 6:02 AM EDT [facility] Comment: No Anti-Nuclear Antibodies (MURALI) detected by [facility]IAGO. The Extractable Nuclear Antigen Antibodies (MARKETING [employer] OP, Sharif, SSA 52, SSA 60, Scleroderma, Osiris-1 and SSB) and Double Stranded DNA (dsDNA) Antibody, IgG will not be performed. If suspicion of connective tissue disease is strong, and MURALI is negative by SANTIAGO, consider testing for MURALI by IFA ([id number]). INTERPRETIVE INFORMATION: Anti-Nuclear Antibodies (MURALI), IgG by SANTIAGO Antinuclear Antibodies (MURALI), IgG by SANTIAGO: MURALI specimens are screened using enzyme-linked immunosorbent assay (SANTIAGO) methodology. All SANTIAGO results reported as Detected are further tested by indirect fluorescent assay (IFA) using HEp-2 substrate with an IgG-specific conjugate. The MURALI SANTIAGO screen is designed to detect antibodies against dsDNA, histones, SS-A (Ro), SS-B (La), Sharif, Sharif/MARKETING CO OP, Scl-70, Osiris-1, centromeric proteins, other antigens extracted from the HEp-2 cell nucleus. MURALI SANTIAGO assays have been reported to have lower sensitivities than MURALI IFA for systemic autoimmune rheumatic diseases (SARD). Negative results do not necessarily rule out SARD. Performed By: [employer] [address] [place] [address] Supervisor Warping Department: Jacinto Wolfe MD, PhD CLIA Number: [id number] Blood Venipuncture / Unknown 11/27/2024 1:38 PM EDT 11/27/2024 1:39 PM EDT Keisha Tolentino APRN LAB BLOOD ORDERABLES Final Result Performing Organization Address City/[facility]/ZIP Co de Phone Number [facility] [address] [place] [address], [facility] [phone] * Microalbumin / creatinine urine ratio (11/27/2024 1:38 PM EDT) Creatinine, Ur 76.00 47.00 - 110.00 mg/dL 11/27/2024 11:46 PM EDT [facility] Microalbumin, Urine <5 See Comments mg/L 11/27/2024 11:46 PM EDT [facility] Comment:No normal reference ranges established for random urine. Microalbumin Creatinine Ratio, Random <7 0 - 30 mg/g 11/27/2024 11:46 PM EDT [facility] Urine URINE SPECIMEN COLLECTION, CLEAN CATCH / Unknown 11/27/2024 1:38 PM EDT 11/27/2024 1:39 PM EDT us Keisha Tolentino APRN URINE ORDERABLES Final Res ult [facility] [address] [phone] * (ABNORMAL) Vitamin D, 25-Hydroxy (11/27/2024 1:38 PM EDT) Pathologist [facility] Vitamin D 25-Hydroxy 81.56(H) 30 - 80 ng/mL 11/28/2024 12:16 AM EDT [facility] Blood Venipuncture / Unknown 11/27/2024 1:38 PM EDT 11/27/2024 1:39 PM EDT Keisha Tolentino APRN LAB BLOOD ORDERABLES Final Result [facility] [address] [phone] * (ABNORMAL) Sedimentation rate (11/27/2024 1:38 PM EDT) Sed Rate 51(H) 0 - 30 mm/HR 11/27/2024 2:22 PM EDT [facility] Blood Venipuncture / Unknown 11/27/2024 1:38 PM EDT 11/27/2024 1:39 PM EDT us Keisha Tolentino APRN LAB BLOOD ORDERABLES Final Result Performing Organization Address City/[facility]/ZIP Co de Phone Number [facility] [address] [place], [place] [id number] [place] [address] * TSH (11/27/2024 1:38 PM EDT) TSH 0.607 0.360 - 3.740 uIU/mL 11/27/2024 2:32 PM EDT [facility] Blood Venipuncture / Unknown 11/27/2024 1:38 PM EDT 11/27/2024 1:39 PM EDT Narrative [facility] - 11/27/2024 2:32 PM EDT Biotin supplements can cause clinically significant incorrect lab test results. The FDA has seen an increase in the number of reported adverse events related to biotin interference with lab tests. us Keisha Tolentino APRN LAB BLOOD ORDERABLES Final Result Performing Organization Address [facility]/ZIP Co de Phone Number [facility] [address] [phone] * T4, free (11/27/2024 1:38 PM EDT) Free T4 0.95 0.70 - 1.48 ng/dL 11/28/2024 12:16 AM EDT [facility] Blood Venipuncture / Unknown 11/27/2024 1:38 PM EDT 11/27/2024 1:39 PM EDT Keisha Tolentino APRN LAB BLOOD ORDERABLES Final Result Performing Organization Address City/[facility]/ZIP Co de Phone Number [facility] [address] [phone] * (ABNORMAL) Hemoglobin A1c (11/27/2024 1:38 PM EDT) Hemoglobin A1C 6.2(H) 4.0 - 5.6 % 11/27/2024 11:45 PM EDT [facility] Comment: Hemoglobin A1C levels are related to mean glucose during the preceding 2-3 months. Less than 7% demonstrates glycemic control in diabetic patients. Hemoglobin AlC % Suggested Diagnosis > or = 6.5 Diabetic 5.7 - 6.4 Prediabetic <5.7 Non-diabetic eAVG Glucose 131.24(H) 70 - 126 mg/dL 11/27/2024 11:45 PM EDT [facility] Blood Venipuncture / Unknown 11/27/2024 1:38 PM EDT 11/27/2024 1:39 PM EDT Keisha Tolentino APRN LAB BLOOD ORDERABLES Final Result Performing Organization Address City/State/[facility] Co de Phone Number [facility] [address] [phone] * (ABNORMAL) Lipid panel (11/27/2024 1:38 PM EDT) Triglycerides 154(H) 15 - 150 mg/dL 11/27/2024 2:32 PM EDT [facility] Cholesterol 151 50 - 200 mg/dL 11/27/2024 2:32 PM EDT [facility] Comment: 200 to 239 mg/dL = Moderate (borderline) >239 mg/dL = High HDL Cholesterol 54 40 - 60 mg/dL 11/27/2024 2:32 PM EDT [facility] Comment: >=60 mg/dL = Desirable <40 mg/dL = Increased Risk All other components are listed individually or are calculations VLDL Cholesterol 30.8 mg/dL 11/28/19 2:32 PM EDT [facility] Cholesterol/HDL ratio 2.8 mg/dL 11/27/2024 2:32 PM EDT [facility] LDl/HDL Ratio 1 11/27/2024 2:32 PM EDT [facility] LDL Cholesterol, Calculated 66 mg/dL 11/27/2024 2:32 PM EDT [facility] Blood Venipuncture / Unknown 11/27/2024 1:38 PM EDT 11/27/2024 1:39 PM EDT Keisha Rajan [employer] LAB BLOOD ORDERABLES Final Result [facility] [address] [place] [id number] [phone] * (ABNORMAL) Comprehensive metabolic panel (11/27/2024 1:38 PM EDT) Sodium 140 136 - 145 meq/L 11/27/2024 2:32 PM EDT [facility] Potassium 4.3 3.5 - 5.1 meq/L 11/27/2024 2:32 PM EDT [facility] Chloride 108(H) 98 - 107 meq/L 11/27/2024 2:32 PM EDT [facility] CO2 28 21 - 32 meq/L 11/27/2024 2:32 PM EDT [facility] Calcium 8.9 8.5 - 10.1 mg/dL 11/27/2024 2:32 PM EDT [facility] Glucose 117(H) 74 - 100 mg/dL 11/27/2024 2:32 PM EDT [facility] BUN 38(H) 7 - 18 mg/dL 11/27/2024 2:32 PM EDT [facility] Creatinine 1.24(H) 0.55 - 1.10 mg/dL 11/27/2024 2:32 PM EDT [facility] BUN/Creatinine 31 11/27/2024 2:32 PM EDT [facility] Albumin 2.8(L) 3.4 - 5.0 g/dL 11/27/2024 2:32 PM EDT [facility] Alkaline Phosphatase 154(H) 46 - 116 U/L 11/27/2024 2:32 PM EDT [facility] ALT 45 12 - 78 U/L 11/27/2024 2:32 PM EDT [facility] AST 37 15 - 37 U/L 11/27/2024 2:32 PM EDT [facility] Total Bilirubin 0.4 0.2 - 1.0 mg/dL 11/27/2024 2:32 PM EDT [facility] Protein, Total 6.7 6.4 - 8.2 gm/dL 11/27/2024 2:32 PM EDT [facility] Anion Gap 8(L) 11 - 22 11/27/2024 2:32 PM EDT [facility] A/G Ratio 0.7 11/27/2024 2:32 PM EDT [facility] Globulin 3.9 g/dL 11/27/2024 2:32 PM EDT [facility] Osmolality Calc 289.5 mOsm/kg 2:32 PM EDT [facility] eGFR (mL/min/1.73m2) 43(L) >=60 mL/min/1.7 3m2 11/27/2024 2:32 PM EDT [facility] Comment:ESTIMATED GFR IS NOT ACCURATE CREATININE CLEARANCE IN PREDICTING GLOMERULAR FILTRATION RATE. ESTIMATED GFR IS NOT APPLICABLE FOR DIALYSIS PATIENTS. Blood Venipuncture / Unknown 11/27/2024 1:38 PM EDT 11/27/2024 1:39 PM EDT Keisha Tolentino APRN LAB BLOOD ORDERABLES Final Result [facility] [address] [place] [address] * XR hip 2 views left (11/02/2024 2:14 PM EDT) Anatomical Region Laterality Modality Pelvis X-Ray 11/03/2024 8:12 AM EDT Impressions 11/03/2024 8:16 AM EDT Mild degenerative spurring without acute bony abnormality. Images reviewed, interpreted, and dictated by Dr. Donna Munguia. Transcribed by Isauro Lindsey PA-C. Narrative 11/03/2024 8:16 AM EDT LEFT HIP CLINICAL HISTORY: Left hip pain. FINDINGS: The AP view of the pelvis shows no bony abnormality. There is mild spurring at the base of the femoral head. The hip joint is well-maintained. There is mild spurring of the iliac crest. Procedure Note Donna Munguia MD - 11/03/2024 LEFT HIP CLINICAL HISTORY: Left hip pain. FINDINGS: The AP view of the pelvis shows no bony abnormality. There is mild spurring at the base of the femoral head. The hip joint is well-maintained. There is mild spurring of the iliac crest. IMPRESSION: Mild degenerative spurring without acute bony abnormality. Images reviewed, interpreted, and dictated by Dr. Donna Munguia. Transcribed by Isauro Lindsey PA-C. Keisha Tolentino APRN IMG DIAGNOSTIC IMAGING ORD ERABLES Final Result * DXA bone density spine and hip (10/19/2024 1:31 PM EDT) Anatomical Region Laterality Modality Bone X-Ray 10/19/2024 2:05 PM EDT Impressions 10/19/2024 2:18 PM EDT 1. Normal BMD of the lumbar spine. No increased risk for fracture. 2. Normal BMD of the left femoral neck. No increased risk for fracture. FRAX evaluation gives the risk of a major osteoporotic fracture over 10 years as 10.2% and the risk of a hip fracture as 2.1%. Images reviewed, interpreted, and dictated by Dr. Yosef Saleem. Transcribed by Radha Arreola PA-C. Narrative 10/19/2024 2:18 PM EDT BONE MINERAL DENSITOMETRY, DEXA SCAN 10/19/2024 1:17 PM . CLINICAL HISTORY: Osteoporosis. COMPARISON: None. FINDINGS: Bone densitometry calculations of the lumbar spine and left femoral neck were obtained. Average BMD for the lumbar spine from L1-L4 is 1.3 g/sq cm. T-score is 1.1. Z-score is 2.9. Left femoral neck BMD is 0.9 g/sq cm. T-score is -0.7. Z score is 1.6. Procedure Note Jose Angel Saleem MD - 10/19/2024 BONE MINERAL DENSITOMETRY, DEXA SCAN 10/19/2024 1:17 PM . CLINICAL HISTORY: Osteoporosis. COMPARISON: None. FINDINGS: Bone densitometry calculations of the lumbar spine and left femoral neck were obtained. Average BMD for the lumbar spine from L1-L4 is 1.3 g/sq cm. T-score is 1.1. Z-score is 2.9. Left femoral neck BMD is 0.9 g/sq cm. T-score is -0.7. Z score is 1.6. IMPRESSION: 1. Normal BMD of the lumbar spine. No increased risk for fracture. 2. Normal BMD of the left femoral neck. No increased risk for fracture. FRAX evaluation gives the risk of a major osteoporotic fracture over 10 years as 10.2% and the risk of a hip fracture as 2.1%. Images reviewed, interpreted, and dictated by Dr. Yosef Saleem. Transcribed by Radha Arreola PA-C. Keisha Tolentino APRN IMG DXA ORDERABLES Final R esult from [place] [address] [place] [address] [place] [address] [facility] MEDICARE ADVANTAGE Advance Directives For more information, please contact: [phone] * Full Code (Latest Code Status on File) Date Activated Date Inactivated Comments 07/26/2023 2:31 PM 08/08/2023 3:06 PM * Full Code Date Activated Date Inactivated Comments 05/29/2023 7:27 AM 05/29/2023 1:17 PM -Attempt Res uscitation if person has no pulse and is not breathing. -If no pulse or not breathing attempt CPR/CODE. -Call Rapid Response if patient is in distress. Care Teams Salesforce Developer Relationship Specialty Start Date End Date Keisha Tolentino, [employer] [address] [place] [phone] PCP - General Family Medicine 07/15/24 Marilee Angeles MD [id number] [address] Medical Oncologist Hematology and Oncology 08/19/23
--- OUTSIDE RECORDS SUMMARY | 2025-01-19 15:51 | XMS_ITS | Clinical Summary ---
Author Organization [employer] ([place], [place], [place], [place]) Address [address] [place] [address] Care Team Providers Care Line Dancer Name Role Phone Marilee Angeles MD Unavailable [phone] Keisha Tolentino APRN Primary Care Provider [phone] Allergies No known active allergies Medications multivitamin with minerals tablet Take 1 tablet by mouth daily. Active vit C,O-Wl-bxkfb-lute in-zeaxan (PreserVision AREDS-2) 250-90-40-1 mg Cap Take [...] without long-term current use of insulin (HCC) As Directed.. 1 each 01/08/20 25 Active blood sugar diagnostic (Accu-Chek Guide test strips) strpIndications:T ype 2 diabetes mellitus without complication, without long-term current use of insulin ([facility]) 1 each daily. 100 strip 01/08/20 25 Active lancets misc daily. 100 each 01/12/20 25 Active meclizine (ANTIVERT) 25 mg tabletIndications :Vertigo Take 0.5 tablets (12.5 mg total) by mouth as needed for dizziness. 90 tablet 1 01/19/20 25 Active lancets misc Test 2 to 4 Times A Day (Dx: E11.9). 200 each 2 07/02/19 25 025 Discontinu ed(Duplica te Therapy) doxycycline (ADOXA) 100 MG tabletIndications :Cellulitis Take 1 tablet (100 mg total) by mouth 2 (two) times daily for 10 days. 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, pN0, cM0) - Signed [...] Atelectasis 02/14/2022 09/12/2023 Cough, unspecified type 02/14/202208/15 Encounters Date Type Department Care Team Description 01/18/2025 10:00 AM EDT Office Visit [facility] Cardiology - [address] [address] Silverio Victor MD MRI safe cardiac pacemaker in situ (Primary Dx); Kristyn 01/13/2025 2:45 PM EDT Office Visit [address] [address] Keisha Tolentino APRN Type 2 diabetes mellitus without complication, without long-term current use of insulin (HCC) (Primary Dx); Chronic kidney disease, stage 3b (HCC); Thrombocytopenia (HCC); Chronic venous insufficiency; Stasis dermatitis; Cellulitis 01/13/2025 Travel 01/11/2025 Orders Only [address] [place] [address] Jace Emery 01/11/2025 Orders Only [address] [place] [address] Melecio Emeryh 01/07/2025 2:45 PM EDT Lab Patient Walk-In [facility] Lab [address] [place] [phone] SSS (sick sinus syndrome) (HCC) (Primary Dx); Hypertension; Obstructive lung disease (generalized) (HCC); Malignant neoplasm of transverse colon (HCC); Diabetes mellitus (HCC); Encounter for adjustment or management of cardiac device; MRI safe cardiac pacemaker in situ 01/07/2025 11:30 AM EDT Office Visit [address] [place] [address] Keisha Tolentino APRN GERD (gastroesophageal reflux disease) (Primary Dx); Hyperlipidemia, unspecified; Essential (primary) hypertension; Type 2 diabetes mellitus without complication, without long-term current use of insulin (HCC); Chronic kidney disease, stage 3b (HCC); Polyarthropathy; Pacemaker; Cirrhosis (HCC); Varicose veins of ankle; Cellulitis; Stasis dermatitis; Chronic venous insufficiency; Thrombocytopenia (HCC) 01/07/2025 Orders Only [address] [address] Jace Emery Type 2 diabetes mellitus without complication, without long-term current use of insulin (HCC) (Primary Dx) 01/07/2025 Travel 01/01/2025 2:30 PM EDT Treatment [facility] OP Physical Therapy [address] [place] [phone] Konrad Haynes, PT Left hip pain (Primary Dx); Gait instability 01/01/2025 Travel 12/30/2024 1:45 PM EDT Treatment [facility] OP Physical Therapy [address] [place] [phone] WandaeKonrad, PT Left hip pain (Primary Dx); Gait instability 12/30/2024 Travel 12/25/2024 2:30 PM EDT Treatment [facility] OP Physical Therapy [address] [place] [phone] FroKonrad nelson, PT Left hip pain (Primary Dx); Gait instability 12/25/2024 Travel 12/23/2024 2:45 PM EDT Treatment [facility] Physical Therapy [address] [place] [phone] Konrad Haynes, PT Left hip pain (Primary Dx); Gait instability 12/23/2024 Travel 12/18/2024 3:15 PM EDT Treatment [facility] OP Physical Therapy [address] [place] [phone] Konrad Haynes, PT Left hip pain (Primary Dx); Gait instability 12/18/2024 Travel 12/15/2024 3:15 PM EDT Treatment [facility] Physical Therapy [address] [place] [phone] Konrad Haynes, PT Left hip pain (Primary Dx); Gait instability 12/15/2024 Travel 12/11/2024 1:00 PM EDT Treatment [facility] Physical Therapy [address] [place] [phone] Konrad Haynes, PT Left hip pain (Primary Dx); Gait instability 12/11/2024 Travel 12/09/2024 3:15 PM EDT Treatment [facility] Physical Therapy [address] [place] [phone] Konrad Haynes, PT Left hip pain (Primary Dx); Gait instability 12/09/2024 Travel 12/04/2024 1:45 PM EDT Treatment [facility] Physical Therapy [address] [place] [phone] Konrad Haynes, PT Left hip pain (Primary Dx); Gait instability 12/04/2024 Travel 11/30/2024 3:15 PM EDT Treatment [facility] Physical Therapy [address] [place] [phone] Konrad Haynes, PT Left hip pain (Primary Dx); Gait instability 11/30/2024 Travel 11/30/2024 Orders Only [facility] - [address] [address] Keisha Tolentino APRN Anemia (Primary Dx) 11/27/2024 3:00 PM EDT Lab Patient Walk-In [facility] Lab [address] [place] [address] Elevated alkaline phosphatase level (Primary Dx) 11/25/2024 Orders Only [address] [address] Jace Emery 11/23/2024 2:30 PM EDT Office Visit [address] [address] Keisha Tolentino APRN Polyarthropathy (Primary Dx); Muscle strain; Type 2 diabetes mellitus without complications (HCC); Chronic kidney disease, stage 3b (HCC); Gait instability; Left hip pain; Primary hypertension; Neck strain 11/23/2024 Travel 11/18/2024 10:15 AM EDT Treatment [facility] Physical Therapy [address] [place] [phone] Konrad Haynes, PT Left hip pain (Primary Dx); Gait instability 11/18/2024 Travel 11/16/2024 10:15 AM EDT Treatment [facility] Physical Therapy [address] [place] [phone] Ivy Konrad, PT Left hip pain (Primary Dx); Gait instability 11/16/2024 Travel 11/11/2024 11:15 AM EDT Treatment [facility] Physical Therapy [address] [place] [phone] Ivy Konrad, PT Left hip pain (Primary Dx); Gait instability 11/11/2024 Travel 11/09/2024 3:15 PM EDT Treatment [facility] Physical Therapy [address] [place] [phone] Konrad Haynes, PT Left hip pain (Primary Dx); Gait instability 11/09/2024 Travel 11/05/2024 11:00 AM EDT Evaluation [facility] Physical Therapy [address] [place] [phone] Ivy Konrad, PT Left hip pain (Primary Dx); Gait instability 11/05/2024 Travel 11/02/2024 2:08 PM EDT - 11/02/2024 11:59 PM EDT Hospital Encounter [facility] Diagnostic Imaging [address] [place] [address] Left hip pain Discharge Disposition: Home or Self Care 11/02/2024 1:30 PM EDT Office Visit [facility] Primary Care - [facility] [address] [place] [address] Keisha Tolentino APRN Type 2 diabetes mellitus without complication, without long-term current use of insulin (HCC) (Primary Dx); Chronic kidney disease, stage 3b (HCC); Left hip pain; Gait instability; Groin pain, left; Muscle strain 11/02/2024 Travel 10/19/2024 1:14 PM EDT - 10/19/2024 11:59 PM EDT Hospital Encounter [facility] Nuclear Medicine [address] [place] [address] Screening for osteoporosis Discharge Disposition: Home or Self Care 10/19/2024 Travel from Last 3 Months Family History Medical History Relation Name Comments Heart disease Father Diabetes Mother Heart disease Mother Hypertension Mother Cancer Sister Diabetes Sister Relation Name Status Comments Father Mother Sister Social History Tobacco Use Types Packs/Day Years Used Date Smoking Tobacco: Never Smokeless Tobacco: Never Tobacco Cessation:Counseling Given: Not Answered Alcohol Use Standard Drinks/Week Comments Never 0 (1 standard drink = 0.6 oz pur e alcohol) Caffeine use [facility] - Mental Health Answer Date Recorde [...] Do you speak a language other than Amharic at [facility]? No 07/26/2023 Do you want help with [...] Sex Assigned at Female 05/29/2023 7:28 AM CORE DRILLER Legal Sex Female 5:18 PM CDT Gender Identity Female 05/29/2023 7:28 AM CORE DRILLER Sexual Orientation Not on file Last Filed [...] Description 03/01/2025 10:00 AM EST Appointment [facility] Ultrasound [address] [place] [address] Guero Ocampo MD [address] [address] 03/23/2025 10:30 AM EST Office Visit [facility] Gastroenterology [address] [facility] [address] [place] [address] Guero Ocampo MD 227 [facility] [address] [place] [address] 04/19/2025 1:45 PM EST Office Visit [facility] Primary Care - [facility] [address] [place] [address] Rajan KeishaANA [address] [place] [address] 07/19/2025 11:00 AM EDT Office Visit [facility] Cardiology - [place] [address] [place] [address] Silverio Victor MD [address] [place] [address] Health Maintenance Due Date Last Done Comments Diabetic Eye Exam 1950 DTAP/TDAP/TD VACCINES (1 - Tdap) 1958 Shingles Vaccine (Zoster) (1 of 2) 1989 Respiratory Syncytial Virus (RSV) Adult or (1 - 1-dose 75+ series) 2014 Medicare Initial AWV G0438 04/16/2022 Falls Risk Screening 04/15/2024 COVID-19 VACCINE (5 - 2024-2 6 season) 2024 02/06/2022, 01/12/2021, 06/09/2020, Additional history exists Influenza Vaccine (#1) 2024 , 02/01/2021, 01/13/2020, Additional history exists Hemoglobin A1C 05/30/2025 11/27/2024, 02/2 08/2024, 03/10/2024, Additional history exists Diabetic Kidney Health Evalu ation (KED) 11/27/2025 11/27/2024 Depression Screening (12+) 01/13/2026 01/13/2025 Tobacco Cessation Counseling and Screening (12+) 01/18/2026 01/18/2025 DXA SCAN 10/19/2026 10/19/2024 Pneumococcal 50+ years Completed 02/04/2023 Medical Devices Implanted Type Area Chemist Proteins Device Identifier Shelf Expiration Date Model / Serial / Lot Pacemakers-01/06 Implanted:01/06 by Urbano Price MD (Quantity not on file) Pacemakers [employer] KELSEY / [id number] / Procedures Procedure Name Priority Date/Time Associated [...] to JOE(SENDOUT) (01/07/2025 12:29 PM EDT) Pathologist [facility] Total Protein, Serum 6.4 6.3 - 8.2 [...] - 1.51 g/dL 01/10/2025 8:18 AM EDT [facility] Immunofixation Reflex Not Done 01/10/2025 8:18 AM EDT [facility] Comment: Caution: Reflex to Immunofixation electrophoresis (JOE)is not indicated per results of protein electrophoresis. Immunofixation electrophoresis is a more sensitive technique than serum protein electrophoresis for the identification of small M-proteins found in patients with amyloidosis, early or treated myeloma and macroglobulinemia, MGUS, solitary plasmacytoma,and extramedullary plasmacytoma. Monoclonal Protein Not Applicable <=0.00 g/dL 01/10/2025 8:18 AM EDT [facility] SPEP/JOE Interpretation See Note 01/10/2025 8:18 AM EDT [facility] Comment:Serum protein electr ophoresis is negative for monoclonal protein. EER Serum Protein Electrophoresis Reflex See Note 01/10/2025 8:18 AM EDT [facility] Comment: Authorized individuals can access the [employer] Enhanced Report with an [employer] Connect account using the following link. Your local lab can assist you in obtaining the patient report if you don't have a Connect account. [email or web address] Performed By: [facility] [address] [place] [address] Antique Furniture Reproducer: Jacinto Wolfe MD, PhD CLIA Number: [id number] Blood Venipuncture / Unknown 01/07/2025 12:29 PM EDT 01/07/2025 12:40 PM EDT Keisha Tolentino APRN LAB BLOOD ORDERABLES Final Result [facility] [address] [phone], [facility] [phone] * Folate, Serum (01/07/2025 12:29 PM EDT) Folate 18.7 7.0 - 31.4 ng/mL 01/08/2025 12:14 AM EDT [facility] Blood Venipuncture / Unknown 01/07/2025 12:29 PM EDT 01/07/2025 12:40 PM EDT Keisha Rajan GABRIELN LAB BLOOD ORDERABLES Final Result [facility] [address] [phone] * Vitamin B12 (01/07/2025 12:29 PM EDT) [facility] Vitamin B12 567 213 - 816 pg/mL 01/08/2025 12:14 AM EDT [facility] Blood Venipuncture / Unknown 01/07/2025 12:29 PM EDT 01/07/2025 12:40 PM EDT Keisha [facility] N[facility] LAB BLOOD ORDERABLES Final Result Performing Organization Address [facility] Co de Phone Number [facility] [address] [phone] * Cyclic Citrullinated Peptide (CCP) IgG/A (SENDOUT) (11/27/2024 1:38 PM EDT) [facility] Cyclic Citrullinated Peptide Ab, IgG/A 6 0 - 19 Units 11/29/2024 4:26 AM EDT [facility] Comment: INTERPRETIVE INFORMATION: Cyclic Citrullinated Peptide Ab, [...] be monitored and testing repeated. Performed By: [facility] [address] [place] [address] [employer] Furniture Reproducer: Jacinto Wolfe MD, PhD CLIA Number: [id number] Blood Venipuncture / Unknown 11/27/2024 1:38 PM EDT 11/27/2024 1:39 PM EDT us Keisha Tolentino NIGHT GUARD LAB BLOOD ORDERABLES Final Result [facility] [address] [place] [address], [facility] [phone] * (ABNORMAL) CBC with automated diff (11/27/2024 1:38 PM EDT) WBC 5.2 4.8 - 10.8 K/ L 11/27/2024 1:57 PM EDT [facility] RBC 3.18(L) 3.50 - 5.20 M/ L 11/27/2024 1:57 PM EDT [facility] Hemoglobin 11.1(L) 11.7 - 15.8 GM/DL 11/27/2024 1:57 PM EDT [facility] Hematocrit 33.9(L) 35.0 - 47.0 % 11/27/2024 1:57 PM EDT [facility] MCV 107(H) 81 - 101 fL 11/27/2024 1:57 PM EDT [facility] MCH 34.9(H) 27.0 - 34.0 pg 11/27/2024 1:57 PM EDT [facility] MCHC 32.7 32.0 - 36.0 GM/DL 11/27/2024 1:57 PM EDT [facility] RDW 12.8 11.5 - 14.5 % 11/27/2024 1:57 PM EDT [facility] Platelets 113(L) 150 - 400 K/CU MM 11/27/2024 1:57 PM EDT [facility] MPV 10.4 9.4 - 12.4 fL 11/27/2024 1:57 PM EDT [facility] Nucleated Red Blood Cell 0.0 0 - 0.2 % 11/27/2024 1:57 PM EDT [facility] % Neutros 40 37 - 80 % 11/27/2024 1:57 PM EDT [facility] % Lymphs 45 10 - 50 % 11/27/2024 1:57 PM EDT [facility] % Monos 9 5 - 13 % 11/27/2024 1:57 PM EDT [facility] % Eos 4 0 - 7 % 11/27/2024 1:57 PM EDT [facility] % Baso 1 0 - 3 % 11/27/2024 1:57 PM EDT [facility] NRBC Absolute <0.01 0 - 0.012 K/ul 11/27/2024 1:57 PM EDT [facility] # Neutros 2.09 2.00 - 6.90 K/ L 11/27/2024 1:57 PM EDT [facility] # Lymphs 2.35 0.60 - 3.40 K/ L 11/27/2024 1:57 PM EDT [facility] # Monos 0.48 0.00 - 0.90 K/ L 11/27/2024 1:57 PM EDT [facility] # Eos 0.21 0.00 - 0.70 K/ L 11/27/2024 1:57 PM EDT [facility] # Baso 0.03 0.00 - 0.20 K/ L 11/27/2024 1:57 PM EDT [facility] Immature Granulocytes-Re lative 0.40 % 11/27/2024 1:57 PM EDT [facility] # IG 0.02(H) 0.00 - 0.00 K/uL 11/27/2024 1:57 PM EDT [facility] Blood Venipuncture / Unknown 11/27/2024 1:38 PM EDT 11/27/2024 1:39 PM EDT Narrative [facility] - 11/27/2024 1:57 PM EDT When [...] Blast? Flag noted Atypical Lymph flag noted Keisha Tolentino APRN LAB BLOOD ORDERABLES Final Result [facility] [address] [place] [address] * Rheumatoid Factor(SENDOUT) (11/27/2024 1:38 PM EDT) [facility] Rheumatoid Factor <10 0 - 14 IU/mL 11/29/2024 2:31 AM EDT [facility] Comment: Performed By: [facility] [address] [place] [address] [employer] Furniture Reproducer: Jacinto Wolfe MD, PhD CLIA Number: [id number] Blood Venipuncture / Unknown 11/27/2024 1:38 PM EDT 11/27/2024 1:39 PM EDT Keisha Tolentino [facility] LAB BLOOD ORDERABLES Final Result Performing Organization Address City/[facility]/ZIP Co de Phone Number [employer] [facility] [address] [place] [address], [facility] [phone] * MURALI Reflexive Profile(SENDOUT) (11/27/2024 1:38 PM EDT) Pathologist [facility] Anti-Nuclear Ab (MURALI), IgG by SANTIAGO None Detected None Detected 11/29/2024 6:02 AM EDT [facility] Comment: No Anti-Nuclear Antibodies (MURALI) detected by SANTIAGO. The Extractable Nuclear Antigen Antibodies (BILL POSTER INSTALLER, Sharif, SSA 52, SSA 60, Scleroderma, Osiris-1 and SSB) and Double Stranded DNA (dsDNA) Antibody, IgG will not be performed. If suspicion of connective tissue disease is strong, and MURALI is negative by SANTIAGO, consider testing for MURALI by IFA ([id number]). INTERPRETIVE INFORMATION: Anti-Nuclear Antibodies (MURALI), IgG by SANTIAGO Antinuclear Antibodies (MURALI), IgG by SANTIAGO: MURALI specimens are screened using enzyme-linked immunosorbent assay (SANTIAGO) methodology. All SANTIAGO results reported as Detected are further tested by indirect fluorescent assay (IFA) using HEp-2 substrate with an IgG-specific conjugate. The MURALI SANTIAGO screen is designed to detect antibodies against dsDNA, histones, SS-A (Ro), SS-B (La), Sharif, Sharif/BILL POSTER INSTALLER, Scl-70, Osiris-1, centromeric proteins, other antigens extracted from the HEp-2 cell nucleus. MURALI SANTIAGO assays have been reported to have lower sensitivities than MURALI IFA for systemic autoimmune rheumatic diseases (SARD). Negative results do not necessarily rule out SARD. Performed By: [facility] [address] [place] [address] Antique Furniture Reproducer: Jacinto Wolfe MD, PhD CLIA Number: [id number] Blood Venipuncture / Unknown 11/27/2024 1:38 PM EDT 11/27/2024 1:39 PM EDT Keisha Tolentino APRN LAB BLOOD ORDERABLES Final Result [facility] [address] [place] [address], [facility] [phone] * Microalbumin / creatinine urine ratio (11/27/2024 1:38 PM EDT) Creatinine, Ur 76.00 47.00 - 110.00 mg/dL 11/27/2024 11:46 PM EDT [facility] Microalbumin, Urine <5 See Comments mg/L 11/27/2024 11:46 PM EDT [facility] Comment:No normal reference ranges established for random urine. Microalbumin Creatinine Ratio, Random <7 0 - 30 mg/g 11/27/2024 11:46 PM EDT [facility] Urine URINE SPECIMEN COLLECTION, CLEAN CATCH / Unknown 11/27/2024 1:38 PM EDT 11/27/2024 1:39 PM EDT us Keisha Tolentino APRN URINE ORDERABLES Final Res ult Performing Organization Address [facility]/ZIP Co de Phone Number [facility] [address] [phone] * (ABNORMAL) Vitamin D, 25-Hydroxy (11/27/2024 1:38 PM EDT) Pathologist [facility] Vitamin D 25-Hydroxy 81.56(H) 30 - 80 ng/mL 11/28/2024 12:16 AM EDT [facility] Blood Venipuncture / Unknown 11/27/2024 1:38 PM EDT 11/27/2024 1:39 PM EDT Keisha Tolentino APRN LAB BLOOD ORDERABLES Final Result Performing Organization Address [facility] Co de Phone Number [facility] [address] [phone] * (ABNORMAL) Sedimentation rate (11/27/2024 1:38 PM EDT) [facility] Sed Rate 51(H) 0 - 30 mm/HR 11/27/2024 2:22 PM EDT [facility] Blood Venipuncture / Unknown 11/27/2024 1:38 PM EDT 11/27/2024 1:39 PM EDT us Keisha Tolentino APRN LAB BLOOD ORDERABLES Final Result Performing Organization Address [facility]/ZIP Co de Phone Number [facility] [address] [phone] * TSH (11/27/2024 1:38 PM EDT) [facility] TSH 0.607 0.360 - 3.740 uIU/mL 11/27/2024 2:32 PM EDT [facility] Blood Venipuncture / Unknown 11/27/2024 1:38 PM EDT 11/27/2024 1:39 PM EDT Narrative [facility] - 11/27/2024 2:32 PM EDT Biotin supplements can cause clinically significant incorrect lab test results. The FDA has seen an increase in the number of reported adverse events related to biotin interference with lab tests. Keisha Rajan PEREZ LAB BLOOD ORDERABLES Final Result Performing Organization Address City/[facility]/ZIP Co de Phone Number [facility] [address] [place], [place] [address] [phone] * T4, free (11/27/2024 1:38 PM EDT) Free T4 0.95 0.70 - 1.48 ng/dL 11/28/2024 12:16 AM EDT [facility] Blood Venipuncture / Unknown 11/27/2024 1:38 PM EDT 11/27/2024 1:39 PM EDT Keisha Rajan PEREZ LAB BLOOD ORDERABLES Final Result Performing Organization Address [facility] Co de Phone Number [facility] [address] [place], [place] [address] [place] [address] * (ABNORMAL) Hemoglobin A1c (11/27/2024 1:38 PM EDT) Hemoglobin A1C 6.2(H) 4.0 - 5.6 % 11/27/2024 11:45 PM EDT [facility] Comment: Hemoglobin A1C levels are related to mean glucose during the preceding 2-3 months. Less than 7% demonstrates glycemic control in diabetic patients. Hemoglobin AlC % Suggested Diagnosis > or = 6.5 Diabetic 5.7 - 6.4 Prediabetic <5.7 Non-diabetic eAVG Glucose 131.24(H) 70 - 126 mg/dL 11/27/2024 11:45 PM EDT [facility] Blood Venipuncture / Unknown 11/27/2024 1:38 PM EDT 11/27/2024 1:39 PM EDT us Keisha Tolentino APRN LAB BLOOD ORDERABLES Final Result [facility] [address] [place], [place] [address] [phone] * (ABNORMAL) Lipid panel (11/27/2024 1:38 PM EDT) Triglycerides 154(H) 15 - 150 mg/dL 11/27/2024 2:32 PM EDT [facility] Cholesterol 151 50 - 200 mg/dL 11/27/2024 2:32 PM EDT [facility] Comment: 200 to 239 mg/dL = Moderate (borderline) >239 mg/dL = High HDL Cholesterol 54 40 - 60 mg/dL 11/27/2024 2:32 PM EDT [facility] Comment: >=60 mg/dL = Desirable <40 mg/dL = Increased Risk All other components are listed individually or are calculations VLDL Cholesterol 30.8 mg/dL 11/28/19 2:32 PM EDT [facility] Cholesterol/HDL ratio 2.8 mg/dL 11/27/2024 2:32 PM EDT [facility] LDl/HDL Ratio 1 11/27/2024 2:32 PM EDT [facility] LDL Cholesterol, Calculated 66 mg/dL 11/27/2024 2:32 PM EDT [facility] Blood Venipuncture / Unknown 11/27/2024 1:38 PM EDT 11/27/2024 1:39 PM EDT us Keisha Tolentino APRN LAB BLOOD ORDERABLES Final Result [facility] [address] [place], [place] [address] [phone] * (ABNORMAL) Comprehensive metabolic panel (11/27/2024 1:38 PM EDT) Sodium 140 136 - 145 meq/L 11/27/2024 2:32 PM EDT [facility] Potassium 4.3 3.5 - 5.1 meq/L 11/27/2024 2:32 PM EDT [facility] Chloride 108(H) 98 - 107 meq/L 11/27/2024 2:32 PM EDT [facility] CO2 28 21 - 32 meq/L 11/27/2024 2:32 PM EDT [facility] Calcium 8.9 8.5 - 10.1 mg/dL 11/27/2024 2:32 PM EDT [facility] Glucose 117(H) 74 - 100 mg/dL 11/27/2024 2:32 PM EDT [facility] BUN 38(H) 7 - 18 mg/dL 11/27/2024 2:32 PM EDT [facility] Creatinine 1.24(H) 0.55 - 1.10 mg/dL 11/27/2024 2:32 PM EDT [facility] BUN/Creatinine 31 11/27/2024 2:32 PM EDT [facility] Albumin 2.8(L) 3.4 - 5.0 g/dL 11/27/2024 2:32 PM EDT [facility] Alkaline Phosphatase 154(H) 46 - 116 U/L 11/27/2024 2:32 PM EDT [facility] ALT 45 12 - 78 U/L 11/27/2024 2:32 PM EDT [facility] AST 37 15 - 37 U/L 11/27/2024 2:32 PM EDT [facility] Total Bilirubin 0.4 0.2 - 1.0 mg/dL 11/27/2024 2:32 PM EDT [facility] Protein, Total 6.7 6.4 - 8.2 gm/dL 11/27/2024 2:32 PM EDT [facility] Anion Gap 8(L) 11 - 22 11/27/2024 2:32 PM EDT [facility] A/G Ratio 0.7 11/27/2024 2:32 PM EDT [facility] Globulin 3.9 g/dL 11/27/2024 2:32 PM EDT [facility] Osmolality Calc 289.5 mOsm/kg 2:32 PM EDT [facility] eGFR (mL/min/1.73m2) 43(L) >=60 mL/min/1.7 3m2 11/27/2024 2:32 PM EDT [facility] Comment:ESTIMATED GFR IS NOT ACCURATE CREATININE CLEARANCE IN PREDICTING GLOMERULAR FILTRATION RATE. ESTIMATED GFR IS NOT APPLICABLE FOR DIALYSIS PATIENTS. Blood Venipuncture / Unknown 11/27/2024 1:38 PM EDT 11/27/2024 1:39 PM EDT Keisha Tolentino APRN LAB BLOOD ORDERABLES Final Result [facility] [address] [place] [address] * XR hip 2 views left (11/02/2024 2:14 PM EDT) Anatomical Region Laterality Modality Pelvis X-Ray 11/03/2024 8:12 AM EDT Impressions 11/03/2024 8:16 AM EDT Mild degenerative spurring without acute bony abnormality. Images reviewed, interpreted, and dictated by Dr. Dnona Munguia. Transcribed by Isauro Lindsey PA-C. Narrative [...] Transcribed by Radha Arreola PA-C. Keisha Tolentino NIGHT GUARD IMG DXA ORDERABLES Final R esult from Last 3 Months Insurance [facility] MEDICARE ADVANTAGE Advance Directives For more information, please contact: [phone] * Full Code (Latest Code Status on File) Date Activated Date Inactivated Comments 07/26/2023 2:31 PM 08/08/2023 3:06 PM * Full Code Date Activated Date Inactivated Comments 05/29/2023 7:27 AM 05/29/2023 1:17 PM -Attempt Res uscitation if person has no pulse and is not breathing. -If no pulse or not breathing attempt CPR/CODE. -Call Rapid Response if patient is in distress. Care Teams Line Dancer Relationship Specialty Start Date End Date Keisha Tolentino APRN [address] [place] [address] PCP - General Family Medicine 07/15/24 Marilee Angeles MD [address] [facility] [address] [place] [address] Medical Oncologist Hematology and Oncology 08/19/23
--- OUTSIDE RECORDS SUMMARY | 2025-01-19 15:51 | XMS_ITS | Encounter Summary ---
Author Organization [employer] ([place], [place], [place], [place]) Address [address] [place] [address] Care Team Providers Care Psychological Science Professor Name Role Phone Dre William MD Primary Care Provider [phone] Fallon Galeas RN Unavailable Unavailable Marilee Angeles MD Unavailable [phone] Keisha Tolentino APRN Primary Care Provider + [phone] Encounter Details Date Type Department Care Team (Late st Contact Info) Description 01/09/2022 Outside Orders [facility] OP Physical Therapy [address] [facility] [address] [place] [address] Dre William MD [address] [place] [address] Dorsalgia Social History Tobacco Use Types Packs/Day Years Used Date Smoking Tobacco: Never Assessed Comments Unknown Sex and Gender Information Value Date Recorded Sex Assigned at Female 05/29/2023 7:28 AM HELP DESK COORDINATOR Legal Sex Female 5:18 PM CDT Gender Identity Female 05/29/2023 7:28 AM HELP DESK COORDINATOR Sexual Orientation Not on file documented as of this encounter Plan of Treatment Upcoming Encounters Date Type Department Care Team (Late st Contact Info) Description 03/01/2025 10:00 AM EST Appointment [facility] Ultrasound [address] [place] [address] Guero Ocampo MD [address] [place] [address] 03/23/2025 10:30 AM EST Office Visit [facility] Gastroenterology [address] [facility] [address] [place] [address] Guero Ocampo MD [address] [facility] [address] [place] [address] 04/19/2025 1:45 PM EST Office Visit [facility] Primary Care - [facility] [address] [place] [address] Keisha Tolentino APRN [address] [place] [address] 07/19/2025 11:00 AM EDT Office Visit [facility] Cardiology - [place] [address] [place] [address] Silverio Victor MD [address] [facility] [address] [place] [address] documented as of this encounter Visit Diagnoses Diagnosis Dorsalgia Pain in thoracic spine documented in this encounter Care Teams Psychological Science Professor Relationship Specialty Start Date End Date Dre William MD PCP - General Family Medicine 01/08/22 07/14/24 Keisha Tolentino APRN [address] [place] [address] PCP - General Family Medicine 07/15/24 Fallon Galeas, RN Nurse Navigator Oncology 08/19/23 10/23/23 Marilee Angeles MD [address] [facility] [address] [place] [address] Medical Oncologist Hematology and Oncology 08/19/23 documented as of this encounter
--- OUTSIDE RECORDS SUMMARY | 2025-01-19 15:51 | XMS_ITS | Encounter Summary ---
Author Organization [employer] ([place], [place], [place], [place]) Address [address] [place] [address] Care Team Providers Care Can Capper Name Role Phone Marilee Angeles MD Unavailable [phone] Keisha Tolentino APRN Primary Care Provider [phone] Encounter Details Date Type Department Care Team (Latest Contact Info) Description 12/23/2024 Travel Social History Tobacco Use Types Packs/Day Years [...] Do you speak a language other than Cypriot at [facility]? No 07/26/2023 Do you want [...] Sex Assigned at Female 05/29/2023 7:28 AM ADDING MACHINE MECHANIC Legal Sex Female 5:18 PM CDT Gender Identity Female 05/29/2023 7:28 AM ADDING MACHINE MECHANIC Sexual Orientation Not on file documented as of this encounter Plan of Treatment Upcoming Encounters Date Type Department Care Team (Late st Contact Info) Description 03/01/2025 10:00 AM EST Appointment [facility] Ultrasound [address] [place] [address] Guero Ocampo MD [address] [facility] [address] [place] [address] 03/23/2025 10:30 AM EST Office Visit [facility] Gastroenterology [address] [place] [address] Geuro Ocampo MD [address] [facility] [address] [place] [address] 04/19/2025 1:45 PM EST Office Visit [facility] Primary Care - [facility] [address] [place] [address] Keisha Tolentino, DANCE PROFESSOR [address] [place] [address] 07/19/2025 11:00 AM EDT Office Visit [facility] Cardiology - [place] [address] [place] [address] Silverio Victor MD [address] [facility] [address] [place] [address] documented as of this encounter Visit Diagnoses Not on filedocumented in this encounter Care Teams Can Capper Relationship Specialty Start Date End Date Keisha Tolentino, DANCE PROFESSOR [address] [place] [address] PCP - General Family Medicine 07/15/24 Marilee Angeles MD [address] [facility] [address] [place] [address] Medical Oncologist Hematology and Oncology 08/19/23 documented as of this encounter
--- OUTSIDE RECORDS SUMMARY | 2025-01-19 15:51 | XMS_ITS | Encounter Summary ---
Author Organization [employer] ([place], [place], [place], [place]) Address [address] [place] [address] Care Team Providers Care Specialized Developer Name Role Phone Marilee Angeles MD Unavailable [phone] Keisha Tolentino APRN Primary Care Provider [phone] Encounter Details Date Type Department Care Team (Latest Contact Info) Description 12/30/2024 Travel Social History Tobacco Use Types Packs/Day [...] Do you speak a language other than Japanese at [facility]? No 07/26/2023 Do you [...] Sex Assigned at Female 05/29/2023 7:28 AM CHIEF PASSENGER SHIP STEWARD/STEWARDESS Legal Sex Female 5:18 PM CDT Gender Identity Female 05/29/2023 7:28 AM CHIEF PASSENGER SHIP STEWARD/STEWARDESS Sexual Orientation Not on file documented as of this encounter Plan of Treatment Upcoming Encounters Date Type Department Care Team (Late st Contact Info) Description 03/01/2025 10:00 AM EST Appointment [facility] Ultrasound [address] [place] [address] Guero Ocampo MD [address] [facility] [address] [place] [address] 03/23/2025 10:30 AM EST Office Visit [facility] Gastroenterology [address] [place] [address] Guero Ocampo MD [address] [facility] 104 [place] [address] 04/19/2025 1:45 PM EST Office Visit [facility] Primary Care - [facility] [address] [place] [address] Keisha Tolentino, GMAT TUTOR [address] [place] [address] 07/19/2025 11:00 AM EDT Office Visit [facility] Cardiology - [place] [address] [place] [address] Silverio Victor MD [address] [facility] [address] [place] [address] documented as of this encounter Visit Diagnoses Not on filedocumented in this encounter Care Teams Specialized Developer Relationship Specialty Start Date End Date Keisha Tolentino, GMAT TUTOR [address] [place] [address] PCP - General Family Medicine 07/15/24 Marilee Angeles MD [address] [facility] [address] [place] [address] Medical Oncologist Hematology and Oncology 08/19/23 documented as of this encounter
--- OUTSIDE RECORDS SUMMARY | 2025-01-19 15:51 | XMS_ITS | Encounter Summary ---
Author Organization [employer] ([place], [place], [place], [place]) Address [address] [place] [address] Care Team Providers Care Sales Agent Trading Stamps Name Role Phone Marilee Angeles MD Unavailable [phone] Keisha Tolentino APRN Primary Care Provider [phone] Encounter Details Date Type Department Care Team (Latest Contact Info) Description 01/01/2025 Travel Social History Tobacco Use Types Packs/Day [...] Do you speak a language other than Syrian at [facility]? No 07/26/2023 Do you want help with [...] Sex Assigned at Female 05/29/2023 7:28 AM VARNISHER PLASTICOATER Legal Sex Female 5:18 PM CDT Gender Identity Female 05/29/2023 7:28 AM VARNISHER PLASTICOATER Sexual Orientation Not on file documented as of this encounter Plan of Treatment Upcoming Encounters Date Type Department Care Team (Late st Contact Info) Description 03/01/2025 10:00 AM EST Appointment [facility] Ultrasound [address] [place] [address] Guero Ocampo MD [address] [facility] [address] [place] [address] 03/23/2025 10:30 AM EST Office Visit [facility] Gastroenterology [address] [place] [address] Guero Ocampo MD [address] [facility] 104 [place] [address] 04/19/2025 1:45 PM EST Office Visit [facility] Primary Care - [facility] [address] [place] [address] Keisha Tolentino, OIL LEASE BROKER [address] [place] [address] 07/19/2025 11:00 AM EDT Office Visit [facility] Cardiology - [place] [address] [place] [address] Silverio Victor MD [address] [facility] [address] [place] [address] documented as of this encounter Visit Diagnoses Not on filedocumented in this encounter Care Teams Sales Agent Trading Stamps Relationship Specialty Start Date End Date Keisha Tolentino, OIL LEASE BROKER [address] [place] [address] PCP - General Family Medicine 07/15/24 Marilee Angeles MD [address] [facility] [address] [place] [address] Medical Oncologist Hematology and Oncology 08/19/23 documented as of this encounter
--- OUTSIDE RECORDS SUMMARY | 2025-01-19 15:51 | XMS_ITS | Encounter Summary ---
Author Organization [employer] ([place], [place], [place], [place]) Address [address] [place] [address] Care Team Providers Care Impregnator Electrolytic Capacitors Name Role Phone Marilee Angeles MD Unavailable [phone] Keisha Tolentino APRN Primary Care Provider [phone] Encounter Details Date Type Department Care Team (Latest Contact Info) Description 01/07/2025 Travel Social History Tobacco Use Types Packs/Day Years Used Date Smoking Tobacco: Never Smokeless Tobacco: Never Alcohol Use Standard Drinks/Week Comments Never 0 (1 standard drink = 0.6 oz pur e alcohol) Caffeine use [facility] - Mental Health Answer Date Recorde d Little interest or pleasure in doing things Not at all 01/07/2025 Feeling down, depressed, or hopeless Not at all 01/07/2025 Feeling of Stress Not on file 01/07/2025 Utilities Answer Date Recorded In the past 12 months, has t he [employer], gas, oil, or water [employer] threatened to shut off services in your [...] Do you speak a language other than Russian at [facility]? No 07/26/2023 Do you want [...] Sex Assigned at Female 05/29/2023 7:28 AM VACUUM FRAME OPERATOR Legal Sex Female 5:18 PM CDT Gender Identity Female 05/29/2023 7:28 AM VACUUM FRAME OPERATOR Sexual Orientation Not on file documented [...] all 01/07/2025 11:27 AM CDT Jace Emery Patient Health Questionnaire -2 Score 0 01/07/2025 11:27 AM CDT Jace Emery documented as of this encounter Plan of Treatment Upcoming Encounters Date Type Department Care Team (Late st Contact Info) Description 03/01/2025 10:00 AM EST Appointment [address] [place] [address] Guero Ocampo MD [address] [facility] [address] [place] [address] 03/23/2025 10:30 AM EST Office Visit [facility] Gastroenterology [address] [place] [address] Guero Ocampo MD [address] [facility] [address] [place] [address] 04/19/2025 1:45 PM EST Office Visit [facility] Primary Care - [facility] [address] [place] [address] Keisha Tolentino, CHEMICAL DEPENDENCY NURSE [address] [place] [address] 07/19/2025 11:00 AM EDT Office Visit [facility] Cardiology - [place] [address] [place] [address] Silverio Victor MD [address] [facility] [address] [place], [place] [address] documented as of this encounter Visit Diagnoses Not on filedocumented in this encounter Care Teams Impregnator Electrolytic Capacitors Relationship Specialty Start Date End Date Keisha Tolentino, CHEMICAL DEPENDENCY NURSE [address] [place] [address] PCP - General Family Medicine 07/15/24 Marilee Angeles MD [address] [facility] [address] [place] [address] Medical Oncologist Hematology and Oncology 08/19/23 documented as of this encounter
--- OUTSIDE RECORDS SUMMARY | 2025-01-19 15:51 | XMS_ITS | Encounter Summary ---
Author Organization [employer] ([place], [place], [place], [place]) Address [address] [place] [address] Care Team Providers Care Drug Safety Specialist Name Role Phone Marilee Angeles MD Unavailable [phone] Keisha Tolentino APRN Primary Care Provider [phone] Encounter Details Date Type Department Care Team (Latest Contact Info) Description 12/25/2024 Travel Social History Tobacco Use Types Packs/Day [...] speak a language other than Kuwaiti at [facility]? No 07/26/2023 Do you want [...] Sex Assigned at Female 05/29/2023 7:28 AM BULLET CASTING OPERATOR Legal Sex Female 5:18 PM CDT Gender Identity Female 05/29/2023 7:28 AM BULLET CASTING OPERATOR Sexual Orientation Not on file documented as of this encounter Plan of Treatment Upcoming Encounters Date Type Department Care Team (Late st Contact Info) Description 03/01/2025 10:00 AM EST Appointment [facility] Ultrasound [address] [place] [address] Guero Ocampo MD [address] [facility] [address] [place] [address] 03/23/2025 10:30 AM EST Office Visit [facility] Gastroenterology [address] [place] [address] Guero Ocampo MD 227 [facility] 104 [place] [address] 04/19/2025 1:45 PM EST Office Visit [facility] Primary Care - [facility] [address] [place] [address] Keisha Tolentino, BUILDING OFFICIAL [address] [place] [address] 07/19/2025 11:00 AM EDT Office Visit [facility] Cardiology - [place] [address] [place] [address] Silverio Victor MD [address] [facility] [address] [place] [address] documented as of this encounter Visit Diagnoses Not on filedocumented in this encounter Care Teams Drug Safety Specialist Relationship Specialty Start Date End Date Keisha Tolentino, BUILDING OFFICIAL [address] [place] [address] PCP - General Family Medicine 07/15/24 Marilee Angeles MD [address] [facility] [address] [place] [address] Medical Oncologist Hematology and Oncology 08/19/23 documented as of this encounter
--- OUTSIDE RECORDS SUMMARY | 2025-01-19 15:52 | XMS_ITS | Encounter Summary ---
Author Organization [employer] ([place], [place], [place], [place]) Address [address] [place] [address] Care Team Providers Care Construction Technician Name Role Phone Marilee Angeles MD Unavailable [phone] Keisha Tolentino APRN Primary Care Provider [phone] Encounter Details Date Type Department Care Team (Latest Contact Info) Description 12/09/2024 Travel Social History Tobacco Use Types Packs/Day [...] Do you speak a language other than Andorran at [facility]? No 07/26/2023 Do you want [...] Sex Assigned at Female 05/29/2023 7:28 AM BASKET BOTTOM MACHINE OPERATOR Legal Sex Female 5:18 PM CDT Gender Identity Female 05/29/2023 7:28 AM BASKET BOTTOM MACHINE OPERATOR Sexual Orientation Not on file documented as of this encounter Plan of Treatment Upcoming Encounters Date Type Department Care Team (Late st Contact Info) Description 03/01/2025 10:00 AM EST Appointment [facility] Ultrasound [address] [place] [address] Guero Ocampo MD [address] [facility] [address] [place] [address] 03/23/2025 10:30 AM EST Office [facility] Gastroenterology [address] [place] [address] Guero Ocampo MD [address] [facility] 104 [place] [address] 04/19/2025 1:45 PM EST Office [facility] Primary Care - [facility] [address] [place] [address] Keisha Tolentino, MANAGER PRODUCT SUPPORT [address] [place] [address] 07/19/2025 11:00 AM EDT Office Visit [facility] Cardiology - [place] [address] [place] [address] Silverio Victor MD [address] [facility] [address] [place] [address] documented as of this encounter Visit Diagnoses Not on filedocumented in this encounter Care Teams Construction Technician Relationship Specialty Start Date End Date Keisha Tolentino, MANAGER PRODUCT SUPPORT [address] [place] [address] PCP - General Family Medicine 07/15/24 Marilee Angeles MD [address] [facility] [address] [place] [address] Medical Oncologist Hematology and Oncology 08/19/23 documented as of this encounter
--- OUTSIDE RECORDS SUMMARY | 2025-01-19 15:52 | XMS_ITS | Encounter Summary ---
Author Organization [employer] ([place], [place], [place], [place]) Address [address] [place] [address] Care Team Providers Care Television Engineering Teacher Name Role Phone Marilee Angeles MD Unavailable [phone] Keisha Tolentino APRN Primary Care Provider [phone] Encounter Details Date Type Department Care Team (Late st Contact Info) Description 01/11/[address] [facility] Primary Care - [facility] [address] [place] [address] Jace Emery Social History Tobacco Use Types Packs/Day Years Used Date Smoking Tobacco: Never Smokeless Tobacco: Never Alcohol Use Standard Drinks/Week Comments Never 0 (1 standard drink = 0.6 oz pur e alcohol) Caffeine use [facility] - Mental Health Answer Date [...] Do you speak a language other than Ecuadorean at [facility]? No 07/26/2023 Do you want help with [...] Assigned at Female 05/29/2023 7:28 AM MANAGER IN TRAINING Legal Sex Female 5:18 PM CDT Gender Identity Female 05/29/2023 7:28 AM MANAGER IN TRAINING Sexual Orientation Not on file documented as of this encounter Plan of Treatment Upcoming Encounters Date Type Department Care Team (Late st Contact Info) Description 03/01/2025 10:00 AM EST Appointment [facility] Ultrasound [address] [place] [address] Guero Ocampo MD [address] [facility] [address] [place] [address] 03/23/2025 10:30 AM EST Office Visit [facility] Gastroenterology [address] [place] [address] Guero Ocampo MD [address] [facility] [address] [place], [place] [address] 04/19/2025 1:45 PM EST Office Visit [facility] Primary Care - [facility] [address] [place] [address] Keisha Tolentino APRN [address] [place] [address] 07/19/2025 11:00 AM EDT Office Visit [facility] Cardiology - [place] [address] [place] [address] Silverio Victor MD 227 [facility] [address] [place], [place] [address] documented as of this encounter Visit Diagnoses Not on filedocumented in this encounter Care Teams Television Engineering Teacher Relationship Specialty Start Date End Date Keisha Tolentino APRN [address] [place] [address] PCP - General Family Medicine 07/15/24 Marilee Angeles MD [address] [facility] [address] [place] [address] Medical Oncologist Hematology and Oncology 08/19/23 documented as of this encounter
--- OUTSIDE RECORDS SUMMARY | 2025-01-19 15:52 | XMS_ITS | Encounter Summary ---
Author Organization [employer] ([place], [place], [place], [place]) Address [address] [place] [address] Care Team Providers Care Buffer Nickel Name Role Phone Marilee Angeles MD Unavailable [phone] Keisha Tolentino APRN Primary Care Provider [phone] Encounter Details Date Type Department Care Team (Latest Contact Info) Description 12/18/2024 Travel Social History Tobacco Use Types Packs/Day [...] Do you speak a language other than Mosotho at [facility]? No 07/26/2023 Do you want [...] Sex Assigned at Female 05/29/2023 7:28 AM PACKER OPERATOR AUTOMATIC Legal Sex Female 5:18 PM CDT Gender Identity Female 05/29/2023 7:28 AM PACKER OPERATOR AUTOMATIC Sexual Orientation Not on file documented as of this encounter Plan of Treatment Upcoming Encounters Date Type Department Care Team (Late st Contact Info) Description 03/01/2025 10:00 AM EST Appointment [facility] Ultrasound [address] [place] [address] Guero Ocampo MD 227 [facility] [address] [place] [address] 03/23/2025 10:30 AM EST Office Visit [facility] Gastroenterology [address] [place] [address] Guero Ocampo MD 227 [facility] [address] [place] [address] 04/19/2025 1:45 PM EST Office Visit [facility] Primary Care - [facility] [address] [place] [address] Keisha Tolentino, CUSTOMER SUPPORT CONSULTANT [address] [place] [address] 07/19/2025 11:00 AM EDT Office Visit [facility] Cardiology - [place] [address] [place] [address] Silverio Victor MD [address] [facility] [address] [place] [address] documented as of this encounter Visit Diagnoses Not on filedocumented in this encounter Care Teams Buffer Nickel Relationship Specialty Start Date End Date Keisha Tolentino, CUSTOMER SUPPORT CONSULTANT [address] [place] [address] PCP - General Family Medicine 07/15/24 Marilee Angeles MD [address] [facility] [address] [place] [address] Medical Oncologist Hematology and Oncology 08/19/23 documented as of this encounter
--- OUTSIDE RECORDS SUMMARY | 2025-01-19 15:52 | XMS_ITS | Encounter Summary ---
Author Organization [employer] ([place], [place], [place], [place]) Address [address] [place] [address] Care Team Providers Care Delivery Man Name Role Phone Marilee Angeles MD Unavailable [phone] Keisha Tolentino APRN Primary Care Provider [phone] Encounter Details Date Type Department Care Team (Latest Contact Info) Description 12/15/2024 Travel Social History Tobacco Use Types Packs/Day [...] Do you speak a language other than Colombian at [facility]? No 07/26/2023 Do you want help with [...] Sex Assigned at Female 05/29/2023 7:28 AM TYRE RETREADER Legal Sex Female 5:18 PM CDT Gender Identity Female 05/29/2023 7:28 AM TYRE RETREADER Sexual Orientation Not on file documented as of this encounter Plan of Treatment Upcoming Encounters Date Type Department Care Team (Late st Contact Info) Description 03/01/2025 10:00 AM EST Appointment [facility] Ultrasound [address] [place] [address] Guero Ocampo MD 227 [facility] [address] [place] [address] 03/23/2025 10:30 AM EST Office Visit [facility] Gastroenterology [address] [place] [address] Guero Ocampo MD 227 [facility] [address] [place] [address] 04/19/2025 1:45 PM EST Office Visit [facility] Primary Care - [facility] [address] [place] [address] Keisha Tolentino, UNIVERSITY ADMINISTRATIVE ASSISTANT [address] [place] [address] 07/19/2025 11:00 AM EDT Office Visit [facility] Cardiology - [place] [address] [place] [address] Silverio Victor MD [address] [facility] [address] [place] [address] documented as of this encounter Visit Diagnoses Not on filedocumented in this encounter Care Teams Delivery Man Relationship Specialty Start Date End Date Keisha Tolentino, UNIVERSITY ADMINISTRATIVE ASSISTANT [address] [place] [address] PCP - General Family Medicine 07/15/24 Marilee Angeles MD [address] [facility] [address] [place] [address] Medical Oncologist Hematology and Oncology 08/19/23 documented as of this encounter
--- OUTSIDE RECORDS SUMMARY | 2025-01-19 15:52 | XMS_ITS | Encounter Summary ---
Author Organization [employer] ([place], [place], [place], [place]) Address [address] [place] [address] Care Team Providers Care Student Life Dean Name Role Phone Marilee Angeles MD Unavailable [phone] Keisha Tolentino APRN Primary Care Provider [phone] Encounter Details Date Type Department Care Team (Late st Contact Info) Description 01/11/2025 Orders Only [facility] Primary Care - [facility] [address] [place] [address] Jace Emery Social History Tobacco Use Types Packs/Day Years Used Date Smoking Tobacco: Never Smokeless Tobacco: Never Alcohol Use Standard Drinks/Week Comments Never 0 (1 standard drink = 0.6 oz pur e alcohol) Caffeine use [facility] - Mental Health Answer Date Recorde d [...] Do you speak a language other than Trinidadian at [facility]? No 07/26/2023 Do you want help [...] Assigned at Female 05/29/2023 7:28 AM CLINICAL PSYCHOLOGIST Legal Sex Female 5:18 PM CDT Gender Identity Female 05/29/2023 7:28 AM CLINICAL PSYCHOLOGIST Sexual Orientation Not on file documented as of this encounter Plan of Treatment Upcoming Encounters Date Type Department Care Team (Late st Contact Info) Description 03/01/2025 10:00 AM EST Appointment [facility] Ultrasound [address] [place] [address] Guero Ocampo MD 227 [facility] [address] [place] [address] 03/23/2025 10:30 AM EST Office Visit [facility] Gastroenterology [address] [place] [address] Guero Ocampo MD [address] [facility] [address] [place], [place] [address] 04/19/2025 1:45 PM EST Office Visit [facility] Primary Care - [facility] [address] [place] [address] Keisha Tolentino APRN [address] [place] [address] 07/19/2025 11:00 AM EDT Office Visit [facility] Cardiology - [place] [address] [place] [address] Silverio Victor MD 227 [facility] [address] [place], [place] [address] documented as of this encounter Visit Diagnoses Not on filedocumented in this encounter Care Teams Student Life Dean Relationship Specialty Start Date End Date Keisha Tolentino APRN [address] [place] [address] PCP - General Family Medicine 07/15/24 Marilee Angeles MD [address] [facility] [address] [place] [address] Medical Oncologist Hematology and Oncology 08/19/23 documented as of this encounter
--- OUTSIDE RECORDS SUMMARY | 2025-01-19 15:52 | XMS_ITS | Encounter Summary ---
Author Organization [employer] ([place], [place], [place], [place]) Address [address] [place] [address] Care Team Providers Care Dairy Management Specialist Name Role Phone Rj William MD Primary Care Provider [phone] Marilee Angeles MD Unavailable [phone] Keisha Tolentino APRN Primary Care Provider [phone] Reason for Visit * Reason Onset Date Comments GENERAL MESSAGE 06/01/2024 Encounter Details Date Type Department Care Team (Late st Contact Info) Description 06/01/2024 Telephone [facility] Primary Care - [facility] [address] [place] [address] Rj William MD [address] [place] [address] GENERAL MESSAGE Social History Tobacco Use Types Packs/Day Years [...] Do you speak a language other than Slovak at [facility]? No 07/26/2023 Do you want help [...] Assigned at Female 05/29/2023 7:28 AM RETAIL SALES REPRESENTATIVE Legal Sex Female 5:18 PM CDT Gender Identity Female 05/29/2023 7:28 AM RETAIL SALES REPRESENTATIVE Sexual Orientation Not on file documented as of this encounter Miscellaneous Notes * Telephone Encounter - Mariah Miller - 06/01/2024 3:28 PM EST Called and spoke to pt. [place] SALES REPRESENTATIVE * Telephone Encounter - Bot EST Oneviktoria Pulido - 06/01/2024 2:51 PM EST FROM: Charmainecristopher Tate CSN: TO: [facility] 7 MANAGER CONTRACTING STAFF [[id number]] SUBJECT: General Message PROVIDER: RJ WILLIAM [[id number]] DEPARTMENT: [facility] [[id number]] ENCOUNTER REASON FOR CALL: GENERAL MESSAGE ENCOUNTER TYPE: Telephone LAST VISIT DATE IS NOT APPLICABLE: Yes NEXT VISIT DATE IS NOT APPLICABLE: Yes WHAT'S THE PATIENT'S MESSAGE? Pt states she was to see a neurologist on 06/[address] William office got her into see another neurologist on 05/12 does she need to keep the original appt? Pt can not remember the name of the dr she saw. FOLLOW UP ACTION NEEDED? Yes MESSAGE PRIORITY: Routine ADDITIONAL INFORMATION: Please call the patient CALLER'S NAME: Carolvicente Shepherdmaik Rush RELATION TO PATIENT: Self [1] PREFERRED LANGUAGE: Slovak BEST CALL BACK PHONE NUMBER: Mobile Phone: ([phone]) WHAT IS THE BEST WAY FOR THE OFFICE TO CONTACT YOU?: OK to leave message on voicemail [place] SALES REPRESENTATIVE documented in this encounter Plan of Treatment Upcoming Encounters Date Type Department Care Team (Late st Contact Info) Description 03/01/2025 10:00 AM EST Appointment [facility] Ultrasound [address] [place] [address] Guero Ocampo MD 227 [facility] [address] [place] [address] 03/23/2025 10:30 AM EST Office Visit [facility] Gastroenterology [address] [place] [address] Guero Ocampo MD [address] [facility] [address] [place] [address] 04/19/2025 1:45 PM EST Office Visit [facility] Primary Care - [facility] [address] [place] [address] Keisha Tolentino APRN [address] [place] [address] 07/19/2025 11:00 AM EDT Office Visit [facility] Cardiology - [place] [address] [place] [address] Silverio Victor MD [address] [facility] [address] [place] [address] documented as of this encounter Visit Diagnoses Not on filedocumented in this encounter Care Teams Dairy Management Specialist Relationship Specialty Start Date End Date Rj William MD PCP - General Family Medicine 01/08/22 07/14/24 Keisha Tolentino APRN [address] [place] [address] PCP - General Family Medicine 07/15/24 Marilee Angeles MD [address] [facility] [address] [place] [address] Medical Oncologist Hematology and Oncology 08/19/23 documented as of this encounter
--- OUTSIDE RECORDS SUMMARY | 2025-01-19 15:52 | XMS_ITS | Encounter Summary ---
Author Organization [employer] ([place], [place], [place], [place]) Address [address] [place] [address] Care Team Providers Care Development And Planning Engineer Name Role Phone Marilee Angeles MD Unavailable [phone] Keisha Tolentino APRN Primary Care Provider [phone] Encounter Details Date Type Department Care Team (Late st Contact Info) Description 11/30/2024 Orders Only [facility] Primary Care - [address] [address] Keisha Tolentino APRN [address] [place] [address] Anemia (Primary Dx) Social History Tobacco Use Types [...] Do you speak a language other than Panamanian at [facility]? No 07/26/2023 Do you [...] Sex Assigned at Female 05/29/2023 7:28 AM CORRESPONDENCE REPRESENTATIVE Legal Sex Female 5:18 PM CDT Gender Identity Female 05/29/2023 7:28 AM CORRESPONDENCE REPRESENTATIVE Sexual Orientation Not on file documented as of this encounter Plan of Treatment Upcoming Encounters Date Type Department Care Team (Late st Contact Info) Description 03/01/2025 10:00 AM EST Appointment [facility] Ultrasound [address] [place] [address] Guero Ocampo MD 227 [facility] [address] [place] [address] 03/23/2025 10:30 AM EST Office Visit [facility]astroenterology [address] [facility] [address] [place] [address] Guero Ocampo MD [address] [facility] [address] [place], [place] [address] 04/19/2025 1:45 PM EST Office Visit [facility] Primary Care - [facility] [address] [place] [address] Keisha Tolentino APRN [address] [place] [address] 07/19/2025 11:00 AM EDT Office Visit [facility] Cardiology - [place] [address] [place] [address] Silverio Victor MD 227 [facility] 101 [place], [place] [address] Scheduled Orders Name Type Priority Associated Diagnoses Orde r Schedule Vitamin B12 and Folate Lab Routine Anemia Expected: 11/30/2024, Expires: 11/30/2025 Protein electrophoresis, serum Lab Routine Anemia Expected: 11/30/2024 (Approximate), Expires: 11/30/2025 documented as of this encounter Visit Diagnoses Diagnosis Anemia- Primary Unspecified anemia documented in this encounter Care Teams Development And Planning Engineer Relationship Specialty Start Date End Date Keisha Tolentino, ANA [address] [place] [address] PCP - General Family Medicine 07/15/24 Marilee Angeles MD [address] [facility] [address] [place] [address] Medical Oncologist Hematology and Oncology 08/19/23 documented as of this encounter
--- OUTSIDE RECORDS SUMMARY | 2025-01-19 15:52 | XMS_ITS | Encounter Summary ---
Author Organization [employer] ([place], [place], [place], [place]) Address [address] [place] [address] Care Team Providers Care Client Professional Name Role Phone Marilee Angeles MD Unavailable [phone] Keisha Tolentino APRN Primary Care Provider [phone] Encounter Details Date Type Department Care Team (Late st Contact Info) Description 11/25/2024 Orders Only [facility] Primary Care - [facility] [address] [place] [address] Jace Emery Social History Tobacco [...] Do you speak a language other than Honduran at [facility]? No 07/26/2023 [...] Sex Assigned at Female 05/29/2023 7:28 AM PUTTY MIXER AND APPLIER Legal Sex Female 5:18 PM CDT Gender Identity Female 05/29/2023 7:28 AM PUTTY MIXER AND APPLIER Sexual Orientation Not on file documented as of this encounter Plan of Treatment Upcoming Encounters Date Type Department Care Team (Late st Contact Info) Description 03/01/2025 10:00 AM EST Appointment [facility] Ultrasound [address] [place] [address] Guero Ocampo MD 227 [facility] [address] [place] [address] 03/23/2025 10:30 AM EST Office Visit [facility] Gastroenterology [address] [facility] [facility] [address] [place] [address] Guero Ocampo MD [address] [facility] [address] [place] [address] 04/19/2025 1:45 PM EST Office Visit [facility] Primary Care - [facility] 40 [place] [address] Keisha Tolentino APRN [address] [place] [address] 07/19/2025 11:00 AM EDT Office Visit [facility] Cardiology - [place] [address] [place] [address] Silverio Victor MD [address] [facility] [address] [place] [address] documented as of this encounter Visit Diagnoses Not on filedocumented in this encounter Care Teams Client Professional Relationship Specialty Start Date End Date Keisha Tolentino APRN [address] [place] [address] PCP - General Family Medicine 07/15/24 Marilee Angeles MD [address] [facility] [address] [place] [address] Medical Oncologist Hematology and Oncology 08/19/23 documented as of this encounter
--- OUTSIDE RECORDS SUMMARY | 2025-01-19 15:52 | XMS_ITS | Encounter Summary ---
Author Organization [employer] ([place], [place], [place], [place]) Address [address] [place] [address] Care Team Providers Care Whistle Punk Name Role Phone Marilee Angeles MD Unavailable [phone] Keisha Tolentino APRN Primary Care Provider [phone] Encounter Details Date Type Department Care Team (Latest Contact Info) Description 11/30/2024 Travel Social History Tobacco Use Types Packs/Day [...] Do you speak a language other than Algerian at [facility]? No 07/26/2023 Do you [...] Sex Assigned at Female 05/29/2023 7:28 AM PROCESS TRAINER Legal Sex Female 5:18 PM CDT Gender Identity Female 05/29/2023 7:28 AM PROCESS TRAINER Sexual Orientation Not on file documented as of this encounter Plan of Treatment Upcoming Encounters Date Type Department Care Team (Late st Contact Info) Description 03/01/2025 10:00 AM EST Appointment [facility] Ultrasound [address] [place] [address] Guero Ocampo MD 227 [facility] [address] [place] [address] 03/23/2025 10:30 AM EST Office Visit [facility] Gastroenterology [address] [place] [address] Guero Ocampo MD 227 [facility] 104 [place] [address] 04/19/2025 1:45 PM EST Office Visit [facility] Primary Care - [facility] [address] [place] [address] Keisha Tolentino, BENDING MACHINE OPERATOR [address] [place] [address] 07/19/2025 11:00 AM EDT Office Visit [facility] Cardiology - [place] [address] [place] [address] Silverio Victor MD [address] [facility] [address] [place] [address] documented as of this encounter Visit Diagnoses Not on filedocumented in this encounter Care Teams Whistle Punk Relationship Specialty Start Date End Date Keisha Tolentino, BENDING MACHINE OPERATOR [address] [place] [address] PCP - General Family Medicine 07/15/24 Marilee Angeles MD [address] [facility] [address] [place] [address] Medical Oncologist Hematology and Oncology 08/19/23 documented as of this encounter
--- OUTSIDE RECORDS SUMMARY | 2025-01-19 15:52 | XMS_ITS | Encounter Summary ---
Author Organization [employer] ([place], [place], [place], [place]) Address [address] [place] [address] Care Team Providers Care Mass Communications Instructor Name Role Phone Marilee Angeles MD Unavailable [phone] Keisha Tolentino APRN Primary Care Provider [phone] Encounter Details Date Type Department Care Team (Latest Contact Info) Description 01/13/2025 Travel Social History Tobacco Use Types Packs/Day Years Used Date Smoking Tobacco: Never Smokeless Tobacco: Never Alcohol Use Standard Drinks/Week Comments Never 0 (1 standard drink = 0.6 oz pur e alcohol) Caffeine use [facility] - Mental Health Answer Date Recorde d Little interest or pleasure in doing things Not at all 01/13/2025 Feeling down, depressed, or hopeless Not at all 01/13/2025 Feeling of Stress Not on file 01/13/2025 Utilities Answer Date Recorded In the past 12 months, has t he [employer], gas, oil, or water [employer] threatened to shut off services in your [...] Do you speak a language other than Cymro at [facility]? No 07/26/2023 Do you want [...] Sex Assigned at Female 05/29/2023 7:28 AM SERVICE UNIT OPERATOR OIL WELL Legal Sex Female 5:18 PM CDT Gender Identity Female 05/29/2023 7:28 AM SERVICE UNIT OPERATOR OIL WELL Sexual Orientation Not on file documented as [...] Info) Description 03/01/2025 10:00 AM EST Appointment [address] [place] [address] Guero Ocampo MD [address] [facility] [address] [place] [address] 03/23/2025 10:30 AM EST Office Visit [facility] Gastroenterology [address] [place] [address] Guero Ocampo MD [address] [facility] [address] [place] [address] 04/19/2025 1:45 PM EST Office Visit [facility] - [facility] 40 [place] [address] Keisha Tolentino, USER EXPERIENCE DEVELOPER [address] [place] [address] 07/19/2025 11:00 AM EDT Office Visit [facility] Cardiology - [place] [address] [place] [address] Silverio Victor MD [address] [facility] [address] [place], [place] [address] documented as of this encounter Visit Diagnoses Not on filedocumented in this encounter Care Teams Mass Communications Instructor Relationship Specialty Start Date End Date Keisha Tolentino, USER EXPERIENCE DEVELOPER [address] [place] [address] PCP - General Family Medicine 07/15/24 Marilee Angeles MD [address] [facility] [address] [place] [address] Medical Oncologist Hematology and Oncology 08/19/23 documented as of this encounter
--- OUTSIDE RECORDS SUMMARY | 2025-01-19 15:52 | XMS_ITS | Encounter Summary ---
Author Organization [employer] ([place], [place], [place], [place]) Address [address] [place] [address] Care Team Providers Care Magnet Valve Assembler Name Role Phone Dre William MD Primary Care Provider [phone] Marilee Angeles MD Unavailable [phone] Keisha Tolentino APRN Primary Care Provider [phone] Reason for Visit * Reason Onset Date Comments Update 04/28/2024 Encounter Details Date Type Department Care Team (Late st Contact Info) Description 04/28/2024 Telephone [facility] - [facility] [address] [place] [address] Dre William MD [address] [place] [address] Update Social History Tobacco Use Types Packs/Day Years [...] Do you speak a language other than Polish at [facility]? No 07/26/2023 Do you [...] Sex Assigned at Female 05/29/2023 7:28 AM CLIENT SUPPORT CONSULTANT Legal Sex Female 5:18 PM CDT Gender Identity Female 05/29/2023 7:28 AM CLIENT SUPPORT CONSULTANT Sexual Orientation Not on file documented as of this encounter Miscellaneous Notes * Telephone Encounter - Collette Elaine - 04/28/2024 10:47 AM EST Next Visit: 06/09/2024 Last Visit: 04/24/2024 Dre William MD Caller Message (please include as much detail as possible)? Her side is completely okay and her foot is 90% better, she can wear her shoes now. She says, thank you for taking such good care of her. Is follow up action needed? No Explain: Update Caller Name: Carol Relation to patient: pt Best Call Back OK to leave message on voicemail: y NT SUPPORT CONSULTANT documented in this encounter Plan of Treatment Upcoming Encounters Date Type Department Care Team (Late st Contact Info) Description 03/01/2025 10:00 AM EST Appointment [facility] Ultrasound [address] [place] [address] Guero Ocampo MD [address] [facility] [address] [place] [address] 03/23/2025 10:30 AM EST Office Visit [facility] Gastroenterology [address] [place] [address] Guero Ocampo MD [address] [facility] [address] [place] [address] 04/19/2025 1:45 PM EST Office Visit [facility] Primary Care - [facility] [address] [place] [address] Keisha Tolentino APRN [address] [place] [address] 07/19/2025 11:00 AM EDT Office Visit [facility] Cardiology - [place] [address] [place] [address] Silverio Victor MD [address] [facility] [address] [place], [place] [address] documented as of this encounter Visit Diagnoses Not on filedocumented in this encounter Care Teams Magnet Valve Assembler Relationship Specialty Start Date End Date Dre William MD PCP - General Family Medicine 01/08/22 07/14/24 Keisha Tolentino, ANA [address] [place] [address] PCP - General Family Medicine 07/15/24 Marilee Angeles MD [address] [id number] Medical Oncologist Hematology and Oncology 08/19/23 documented as of this encounter
--- OUTSIDE RECORDS SUMMARY | 2025-01-19 15:52 | XMS_ITS | Encounter Summary ---
Author Organization [employer] ([place], [place], [place], [place]) Address [address] [place] [address] Care Team Providers Care Drum Attendant Name Role Phone Marilee Angeles MD Unavailable [phone] Keisha Tolentino APRN Primary Care Provider [phone] Encounter Details Date Type Department Care Team (Latest Contact Info) Description 12/04/2024 Travel Social History Tobacco Use Types Packs/Day [...] Do you speak a language other than Ivorian at [facility]? No 07/26/2023 Do you want help [...] Sex Assigned at Female 05/29/2023 7:28 AM DEFENSE ANALYST Legal Sex Female 5:18 PM CDT Gender Identity Female 05/29/2023 7:28 AM DEFENSE ANALYST Sexual Orientation Not on file documented as of this encounter Plan of Treatment Upcoming Encounters Date Type Department Care Team (Late st Contact Info) Description 03/01/2025 10:00 AM EST Appointment [facility] Ultrasound [address] [place] [id number] Guero Ocampo MD [address] [facility] [address] [place] [address] 03/23/2025 10:30 AM EST Office Visit [facility] Gastroenterology [address] [place] [address] Guero Ocampo MD [address] [facility] [address] [place] [address] 04/19/2025 1:45 PM EST Office Visit [facility] Primary Care - [facility] [address] [place] [address] Keisha Tolentino, YARN CLEANER [address] [place] [address] 07/19/2025 11:00 AM EDT Office Visit [facility] Cardiology - [place] [address] [place] [address] Silverio Victor MD [address] [facility] [address] [place] [address] documented as of this encounter Visit Diagnoses Not on filedocumented in this encounter Care Teams Drum Attendant Relationship Specialty Start Date End Date Keisha Tolentino, YARN CLEANER [address] [place] [address] PCP - General Family Medicine 07/15/24 Marilee Angeles MD [address] [facility] [address] [place] [address] Medical Oncologist Hematology and Oncology 08/19/23 documented as of this encounter
--- OUTSIDE RECORDS SUMMARY | 2025-01-19 15:52 | XMS_ITS | Encounter Summary ---
Author Organization [employer] ([place], [place], [place], [place]) Address [address] [place] [address] Care Team Providers Care Industrial Technology Education Teacher Name Role Phone Marilee Angeles MD Unavailable [phone] Keisha Tolentino APRN Primary Care Provider [phone] Encounter Details Date Type Department Care Team (Late st Contact Info) Description 01/07/2025 Orders Only [facility] Primary Care - [facility] [address] [place] [address] Jace Emery Type 2 diabetes mellitus without complication, without long-term current use of insulin (HCC) (Primary Dx) Social History Tobacco Use Types Packs/Day Years Used Date Smoking Tobacco: Never Smokeless Tobacco: Never Alcohol Use Standard Drinks/Week Comments Never 0 (1 standard drink = 0.6 oz pur e alcohol) Caffeine use [facility] - Mental Health Answer Date [...] Do you speak a language other than Ghanaian at [facility]? No 07/26/2023 Do you want help [...] Sex Assigned at Female 05/29/2023 7:28 AM GAMER Legal Sex Female 5:18 PM CDT Gender Identity Female 05/29/2023 7:28 AM GAMER Sexual Orientation Not on file documented as [...] Info) Description 03/01/2025 10:00 AM EST Appointment [facility] Ultrasound [address] [place] [phone] Guero Ocampo MD [address] [facility] [address] [place] [address] 03/23/2025 10:30 AM EST Office Visit [facility] Gastroenterology [address] [facility] [address] [place] [address] Guero Ocampo MD [address] [facility] [address] [place], [place] [id number] 04/19/2025 1:45 PM EST Office Visit [facility] Primary Care - [facility] [address] [place] [address] Keisha Tolentino APRN [address] [place] [address] 07/19/2025 11:00 AM EDT Office Visit [facility] Cardiology - [place] [address] [place] [phone] Silverio Victor MD [address] [facility] [address] [place], [place] [id number] documented as of this encounter Visit Diagnoses Diagnosis Type 2 diabetes mellitus without complication, without long-term current use of insulin (HCC)- Primary documented in this encounter Care Teams Industrial Technology Education Teacher Relationship Specialty Start Date End Date Keisha Tolentino APRN [address] [place] [phone] PCP - General Family Medicine 07/15/24 Marilee Angeles MD [address] [facility] [address] [place] [address] Medical Oncologist Hematology and Oncology 08/19/23 documented as of this encounter
--- OUTSIDE RECORDS SUMMARY | 2025-01-19 15:52 | XMS_ITS | Encounter Summary ---
Author Organization [employer] ([place], [place], [place], [place]) Address [address] [place] [address] Care Team Providers Care Head Piece Assembler Name Role Phone Marilee Angeles MD Unavailable [phone] Keisha Tolentino APRN Primary Care Provider [phone] Encounter Details Date Type Department Care Team (Latest Contact Info) Description 11/23/2024 Travel Social History Tobacco Use Types Packs/Day [...] Do you speak a language other than [place] at [facility]? No 07/26/2023 Do you want [...] Sex Assigned at Female 05/29/2023 7:28 AM AUTOMOBILE SERVICE ADVISOR Legal Sex Female 5:18 PM CDT Gender Identity Female 05/29/2023 7:28 AM AUTOMOBILE SERVICE ADVISOR Sexual Orientation Not on file documented as [...] EST Appointment [facility] Ultrasound [address] [place] [address] Guero Ocampo MD [address] [facility] [address] [place] [address] 03/23/2025 10:30 AM EST Office Visit [facility] Gastroenterology [address] [facility] [address] [place] [address] Guero Ocampo MD [address] [facility] [address] [place] [address] 04/19/2025 1:45 PM EST Office Visit [facility] Primary Care - [facility] [address] [place] [address] Keisha Tolentino APRN [address] [place] [address] 07/19/2025 11:00 AM EDT Office Visit [facility] Cardiology - [place] [address] [place] [address] Silverio Victor MD [address] [facility] [address] [place] [address] documented as of this encounter Visit Diagnoses Not on filedocumented in this encounter Care Teams Head Piece Assembler Relationship Specialty Start Date End Date Keisha Tolentino APRN [address] [place] [address] PCP - General Family Medicine 07/15/24 Marilee Angeles MD [address] [facility] [address] [place] [address] Medical Oncologist Hematology and Oncology 08/19/23 documented as of this encounter
--- OUTSIDE RECORDS SUMMARY | 2025-01-19 15:52 | XMS_ITS | Encounter Summary ---
Author Organization [facility] ([place], [place], [place], [place]) Address [address] [place] [address] Care Team Providers Care Social Media Content Manager Name Role Phone Marilee Angeles MD Unavailable Keisha Tolentino APRN Primary Care Provider [phone] Encounter Details Date Type Department Care Team (Latest Contact Info) Description 12/11/2024 Travel Social History Tobacco Use Types Packs/Day [...] speak a language other than Citizen Of [place] at [facility]? No 07/26/2023 Do you [...] Sex Assigned at Female 05/29/2023 7:28 AM ADVERTISING CONSULTANT Legal Sex Female 5:18 PM CDT Gender Identity Female 05/29/2023 7:28 AM ADVERTISING CONSULTANT Sexual Orientation Not on file documented as of this encounter Plan of Treatment Upcoming Encounters Date Type Department Care Team (Late st Contact Info) Description 03/01/2025 10:00 AM EST Appointment [facility] Ultrasound [address] [place] [address] Guero Ocampo MD [address] [facility] [address] [place] [address] 03/23/2025 10:30 AM EST Office Visit [facility] Gastroenterology [address] [place] [address] Guero Ocampo MD 227 [facility] [address] [place] [address] 04/19/2025 1:45 PM EST Office Visit [facility] Primary Care - [facility] [address] [place] [address] Keisha Tolentino, FARM MACHINERY ERECTOR [address] [place] [address] 07/19/2025 11:00 AM EDT Office Visit [facility] Cardiology - [place] [address] [place] [address] Silverio Victor MD [address] [facility] [address] [place] [address] documented as of this encounter Visit Diagnoses Not on filedocumented in this encounter Care Teams Social Media Content Manager Relationship Specialty Start Date End Date Keisha Tolentino, FARM MACHINERY ERECTOR [address] [place] [address] PCP - General Family Medicine 07/15/24 Marilee Angeles MD [address] [facility] [address] [place] [address] Medical Oncologist Hematology and Oncology 08/19/23 documented as of this encounter
--- OUTSIDE RECORDS SUMMARY | 2025-01-19 15:53 | XMS_ITS | Data Portability ---
Author Organization [facility] Address [address] [place] [id number] Assessment Encounter Date Assessment Date Assessment LastModified by Organization Details LastModified Time 05/12/2024 05/12/2024 -reviewed diagnosis and treatment plan -if symptoms recur, recommend MRI brain w/ and w/out -continue prn medications if symptoms recur -offered PT for neck pain -f/u as [email or web address] [id number] Not available 05/12/2024 14:05:55 Plan of Treatment Reminders Order Date Submit Date Provider Last Modified By Organization Details Last Modified Time Details Appointments None recorded. Lab urinalysis , dipstick 2022 023 [email or web address] [facility], [address] [place] [address], [facility] [place], [address], 3 10:53:35 urinalysis , dipstick 2022 023 [email or web address] [facility], [address] [place] [address], [facility] [place], [address], 3 10:25:07 Referral None recorded. Procedures None recorded. Surgeries None recorded. Imaging XR, kidney + ureter + bladder 2023 024 [facility], [address], [place], [address], 4 13:43:09 XR, kidney + ureter + bladder 2022 023 [email or web address] Not available 3 10:56:58 XR, kidney + ureter + bladder 2022 023 [email or web address] Not available 12:44:43 Medication Orders None recorded. Patient TargetsNo targets recorded. Patient InstructionsNo instructions recorded. Reason for Referral None Reported. Results Created Date Observation Date Name Description Value Unit Range Abnormal Flag Note LastModifiedBy Organization Detail LastModifiedTime 05/31/1905/31/2022 urina lysis , dipst ick Leukocytes Negati ve Not Available [facility], [place], [address], 05/31/2022 10:13:46 05/31/19 23 05/31/2022 urina lysis , dipst ick Nitrite negati ve Not Available [facility] [address] [place] [place], [address], 05/31/2022 10:13:46 05/31/19 23 05/31/2022 urina lysis , dipst ick Urobilinogen .2 Not Available [facility] [address], [address], 05/31/2022 10:13:46 05/31/19 23 05/31/2022 urina lysis , dipst ick Protein Negati ve Not Available [facility] [address] [place] [place], [address], 05/31/2022 10:13:46 05/31/19 23 05/31/2022 urina lysis , dipst ick pH 5.0 Not Available [facility] [address] [place], [address], 05/31/2022 10:13:46 05/31/19 23 05/31/2022 urina lysis , dipst ick Blood Negati ve Not Available [facility] [address], [place], [address], 05/31/2022 10:13:46 05/31/19 23 05/31/2022 urina lysis , dipst ick Specific Severn 1.015 Not Available [facility] [address] [place], [address], 05/31/2022 10:13:46 05/31/19 23 05/31/2022 urina lysis , dipst ick Ketone Negati ve Not Available [facility], [place], [address], 05/31/2022 10:13:46 05/31/19 23 05/31/2022 urina lysis , dipst ick Bilirubin Negati ve Not Available [facility], [place], [address], 05/31/2022 10:13:46 05/31/19 23 05/31/2022 urina lysis , dipst ick Glucose Negati ve Not Available [facility] [address] [place], [address], 05/31/2022 10:13:46 05/31/19 23 05/31/2022 urina lysis , dipst ick Appearance Clear Not Available [facility] [place], [address], 05/31/2022 10:13:46 05/31/19 23 05/31/2022 urina lysis , dipst ick Color Yellow Not Available [facility] [place], [address], 05/31/2022 10:13:46 11/30/19 23 11/29/2022 urina lysis , dipst ick Leukocytes Negati ve Not Available [facility] [address] [place], [address], 11/23/2022 09:20:29 11/30/19 23 11/29/2022 urina lysis , dipst ick Nitrite negati ve Not Available [facility], [place], [address], 11/23/2022 09:20:29 11/30/19 23 11/29/2022 urina lysis , dipst ick Urobilinogen .2 Not Available [address] [place], [address], 11/23/2022 09:20:29 11/30/19 23 11/29/2022 urina lysis , dipst ick Protein Negati ve Not Available [facility] [place], [address], 11/23/2022 09:20:29 11/30/19 23 11/29/2022 urina lysis , dipst ick pH 6.0 Not Available [facility] [place], [address], 11/23/2022 09:20:29 11/30/19 23 11/29/2022 urina lysis , dipst ick Blood Negati ve Not Available [facility] [place], [address], 11/23/2022 09:20:29 11/30/19 23 11/29/2022 urina lysis , dipst ick Specific Severn 1.020 Not Available [facility] [address] [place], [address], 11/23/2022 09:20:29 11/30/19 23 11/29/2022 urina lysis , dipst ick Ketone Negati ve Not Available [address] [place], [address], 11/23/2022 09:20:29 11/30/19 23 11/29/2022 urina lysis , dipst ick Bilirubin Negati ve Not Available [address] [place], [address], 11/23/2022 09:20:29 11/30/19 23 11/29/2022 urina lysis , dipst ick Glucose Negati ve Not Available [address] [place], [address], 11/23/2022 09:20:29 11/30/19 23 11/29/2022 urina lysis , dipst ick Appearance Clear Not Available [address] [place], [address], 11/23/2022 09:20:29 11/30/19 23 11/29/2022 urina lysis , dipst ick Color Dark Yellow Not Available [address] [place], [address], 11/23/2022 09:20:29 02/15/20 22 02/01/2022 CT, abdom en + pelvi s, w/o contr ast No observ ation record ed. BARCODE Not Available 2021 09:54:37 06/05/19 23 06/05/2022 XR, kidne y + urete r + bladd er No observ ation record ed. [email or web address] [facility] [address], [place], [address], 06/05/2022 13:33:28 11/30/19 23 11/29/2022 XR, kidne y + urete r + bladd er No observ ation record ed. [email or web address] [facility] [address], [place], [address], 11/29/2022 13:51:37 12/04/19 24 12/04/2023 XR, kidne y + urete r + bladd er No observ ation record ed. [facility] [address], [place], [address], 12/05/2023 09:31:20 Result Notes None recorded. Problems Name Problem SNOMED Code Status Onset Date Resolution Date Notes Provider Name and Address Organization Details Recorded Time Malignant neoplasm of colon 025341146 Active 2023 Historial Abbey Fierro [facility] [place] [facility] [place] 4 10:35:56 Notes:Anemia, Pacemaker, Kid moses stones, DM, High cholesterol, HTN, Arthritis Problem Notes None recorded. Medical Equipment None Reported. Allergies No known drug allergies Medications Name Sig Start Date Stop Date Status Note LastModified by Organization Details LastModified Time clonidine HCl 0.1 mg tablet TAKE 1 TABLET 2 TIMES EACH DAY 12/03 completed Not Available Not Available Not Available prednisone 10 mg tablet TAKE 1 TABLET 2 TIMES EACH DAY WITH BREAKFAST AMD DINNER FOR 10 DAYS active Not Available Not Available No t Available doxycycline hyclate 100 mg capsule TAKE 1 CAPSULE 2 TIMES EACH DAY WITH MEALS FOR 5 DAYS 12/03 completed Not Available Not Available Not Available glyburide 2.5 mg tablet TAKE 1 TABLET 1 TIME EACH DAY WITH BREAKFAST active Not Available Not Available No t Available metoprolol succinate ER 50 mg tablet,exte nded release 24 hr TAKE 1 TABLET 1 TIME EACH DAY active Not Available Not Available No t Available famotidine 40 mg tablet TAKE 1 TABLET 1 TIME EACH DAY active Not Available Not Available No t Available metoprolol succinate ER 100 mg tablet,exte nded release 24 hr TAKE 1 TABLET 1 TIME EACH DAY 12/03 completed Not Available Not Available Not Available simvastatin 10 mg tablet TAKE 1 TABLET 1 TIME EACH DAY active Not Available Not Available No t Available metronidazo le 500 mg tablet TAKE 1 TABLET 3 TIMES EACH DAY ON THE DAY BEFORE SURGERY AT 2 PM, 4 PM AND 11 PM. 12/03 completed Not Available Not Available Not Available omeprazole 40 mg capsule,del ayed release TAKE 1 CAPSULE 1 TIME EACH DAY active Not Available Not Available No t Available tramadol 50 mg tablet TAKE 1 TABLET EVERY 6 HOURS NEEDED FOR PAIN active Not Available Not Available No t Available acyclovir 800 mg tablet TAKE 1 TABLET 3 TIMES EACH DAY FOR 7 DAYS active Not Available Not Available No t Available OneTouch Ultra Test strips USE TO TEST BLOOD SUGAR 2 TIMES EACH DAY active Not Available Not Available No t Available erythromyci n 5 mg/gram (0.5 %) eye ointment WASH HANDS AND THEN PLACE 1/4 INCH RIBBON INTO LOWER EYELID OF LEFT EYE 3 TIMES EACH DAY FOR [address] IN RIGHT EYE ONLY AT NIGHT FOR 14 DAYS. 12/03 completed Not Available Not Available Not Available fluorometho lone 0.1 % eye drops,suspe nsion PLACE 1 DROP INTO THE AFFECTED EYE(S) 2 TIMES EACH DAY FOR 14 DAYS, THEN 1 TIME EACH DAY FOR 14 DAYS. 12/03 completed Not Available Not Available Not Available neomycin 500 mg tablet TAKE 2 TABLETS 3 TIMES ON THE DAY BEFORE SURGERY AT 2 PM, 4 PM AND 11 PM. 12/03 completed Not Available Not Available Not Available lisinopril 40 mg tablet TAKE 1 TABLET 1 TIME EACH DAY FOR BLOOD PRESSURE active Not Available Not Available No t Available colestipol 1 gram tablet TAKE 2 TABLETS 30 MINUTES BEFORE EVERY MEAL 12/03 completed Not Available Not Available Not Available amoxicillin 875 mg-potassiu m clavulanate 125 mg tablet 12/03 completed Not Available Not Available Not Available amoxicillin 500 mg-potassiu m clavulanate 125 mg tablet TAKE 1 TABLET 3 TIMES EACH DAY FOR 10 DAYS 12/03 completed Not Available Not Available Not Available clonidine 0.1 MG 11/29 completed Not Available Not Available Not Available glyburide 2.5 MG 11/29 completed Not Available Not Available Not Available Slow Fe 45 mg x1 per day active Not Available Not Available No t Available Calcium D-Glucarate active Not Available Not Available Not Available Ebony-Tussin 100 mg/5 mL oral liquid 12/03 completed Not Available Not Available Not Available metoprolol succinate ER 100 mg capsule sprinkle, ext. release 24 hr Take 1 capsule every day by oral route. 11/29 completed Not Available Not Available Not Available OneTouch Delica Plus Lancet 33 gauge USE TO TEST BLOOD SUGAR ONCE OR TWICE A DAY. active Not Available Not Available No t Available aspirin 81 mg capsule Take 1 capsule every day by oral route. 05/12 completed Not Available Not Available Not Available Vitals Date Recorded Body height Body mass index (BMI) Body weight Body temperature Oxygen saturation Oxygen saturation in Arterial blood by Pulse oximetry Heart rate Systolic And Diastolic Provider Name and Address Organization Details Last Updated DateTime 5 157.48 cm 28.5 kg/m2 64012.6 9 g 97.9 [degF] 100 % 100 % 85 /min 140/80 mm[Hg] Marilee Crystal [facility] [place] 5 13:24:51 Date Recorded Body height Body mass index (BMI) Body weight Body temperature Systolic And Diastolic Provider Name and Address Organization Details Last Updated DateTime 05/31/2022 157.48 cm 29.8 kg/m2 02673.5 6 g 98 [degF] 118/68 mm[Hg] Abbey Sri [facility] [place] 3 10:13:01 Date Recorded Body height Body mass index (BMI) Body weight Body temperature Systolic And Diastolic Provider Name and Address Organization Details Last Updated DateTime 11/29/2022 157.48 cm 30.2 kg/m2 58912.7 4 g 98.6 [degF] 130/75 mm[Hg] Joi Peacock [facility] [place] 3 10:40:11 Date Recorded Body height Body mass index (BMI) Body weight Body temperature Oxygen saturation Oxygen saturation in Arterial blood by Pulse oximetry Systolic And Diastolic Provider Name and Address Organization Details Last Updated DateTime 4 157.48 cm 27.4 kg/m2 17962.8 6 g 98 [degF] 99 % 99 % 137/64 mm[Hg] Abbey VALLE [facility] [place] 4 10:35:21 Date Recorded Body temperature Body height Body mass index (BMI) Body weight Systolic And Diastolic Provider Name and Address Organization Details Last Updated DateTime 02/19/2022 97.9 [degF] 157.48 cm 31.1 kg/m2 86660.3 4 g 126/68 mm[Hg] Abbey VALLE [facility] [place] 2 11:49:29 Social History Question Answer Notes LastModified by [employer] Details LastModified Time Tobacco Smoking Status Never Smoker [facility] [place] 02/19/2022 11:38:40 What Is Your Level Of Caffeine Consumption? Occasional [email or web address] Information not available 11/23/2022 Has Tobacco Cessation Counseling Been Provided? No [email or web address] Information not available 02/19/2022 Sex: Unknown Functional Status Question Answer Note LastModified by [employer] Details LastModified Time Do you use any illicit or recreational drugs? No [email or web address] Information not available 11/23/2022 Do you or have you ever used any other forms of tobacco or nicotine? No [email or web address] Information not available 02/19/2022 What is your level of alcohol consumption? None [email or web address] Information not available 11/23/2022 Mental Status None recorded. Family History Nothing Reported Notes:Mother - Heart disease , DM Father - Heart disease Medical History No medical history recorded. Gynecological HistoryNo gynecological history recorded. Obstetrics History GPAL:G 0 P 0 0 0 0 Past Encounters Encounter ID Performer Location Encounter Start Date Encounter Closed Date Diagnosis/Indication Diagnosis SNOMED-CT Code Diagnosis ICD10 Code Diagnosis IMO Codes Diagnosis Note [id number] Joi Yu NP, [facility] [address] [facility],[address] [address] 02/19/2022 11:20:35 02/19/2022 12:01:13 History of calculus of kidney 277817378 Z87.442 UA clearPt sx free, no renal colic sxsRTC in 3 months with KUB [id number] Joi Yu NP, [facility] [address] [place] [address] 05/31/2022 09:57:26 05/31/2022 10:30:24 History of calculus of kidney 101165486 Z87.442 UA clearKUB today. Will call pt with results.RT C in 6 months for f/u. [id number] Joi Yu NP, [facility] [place] [address] 11/29/2022 10:15:00 11/29/2022 10:47:13 History of calculus of kidney 128019622 Z87.442 UA clearKUB order provided to pt to have performed. Will call pt with resultsRTC in 1 year for f/u [id number] Joi Yu NP, [facility] [place] [address] 12/04/2023 10:18:37 12/04/2023 10:44:09 History of calculus of kidney 008422238 Z87.442 KUB order provided to pt to have performed. Will call pt with resultsRTC in 1 year for f/u [id number] Germain Cunningham M.D [facility] [address] [address] 05/12/2024 13:03:24 05/12/2024 14:22:20 Left trigeminal neuralgia 4396060880 1234952 G50.0 Neck pain 46766415 M54.2 Health Concerns Section Related Observation LastModified by Organization Detai ls LastModified Time None Recorded Concern Status LastModified by Organization Details LastModified Time None Recorded Advance Directives Directive None Recorded Payers Insurance Date Sequence Insurance Name Policy Number Policy Drew Covered Member ID Drew Member ID Guarantor Name 05/12/2024 1 [facility] (MEDICARE REPLACEMENT/A DVANTAGE - PPO) [id number] Carol Rush [id number] Carol Rsuh Notes Date Note Type Note Provider Name and Address Organization Details Recorded Time 02/19/2022 text/html 81 yowf presents to clinic for evaluation of ureteral stone. Patient went to [facility] on 02/01/2022 related to left flank pain. CT scan of abdomen pelvis without contrast was performed revealing mild left-sided hydronephrosis and a 3 mm stone in the bladder which may represent a recently passed stone. Patient reports while in the car she received IV fluids and went to the bathroom and feels like she passed the stone then. Since this time frame she denies any flank pain or renal colic symptoms. States urinary stream is good. Nocturia 0-1. She denies any dysuria gross hematuria. She denies any fever, chills, nausea, or vomiting. reports she has a prior history of kidney stones, stone 2 stones prior, has always passed stones. Joi Yu NP, [address] , [place], [address], [facility] [place] 02/19/2022 12:01:19 05/31/2022 text/html 82 yowf RTC for 4 month f/u of kidney stones. Pt reports since last visit on 02/19/2022 she has not experienced any renal colic sxs nor has she passed any stone debris. Pt went to [facility] on 02/01/2022 with left flank pain in which a CT scan of abdomen pelvis revealed a 3 mm stone in the bladder which likely represents a recently passed stone. Patient told us while in the ER she received IV fluids and went to the bathroom and felt like she passed the stone then. Has passed 2 other stones prior to this.States urinary stream is good. Denies any dysuria or gross hematuria. Joi Yu NP, [address] , [place], [address], [facility] [place] 05/31/2022 10:34:05 11/29/2022 text/html 82 yowf RTC for 6 month f/u of kidney stones. Pt reports since last visit on 05/31/2022 she has not experienced any renal colic sxs nor has she passed any stone debris. States urinary stream is good. Denies any dysuria or gross hematuria. Joi Yu NP, [address], [place], [address], [facility] [place] 11/29/2022 10:47:40 12/04/2023 text/html 83 yowf RTC for annual f/u for history of kidney stones. Pt reports since last visit on 11/29/2022 she has not experienced any renal colic sxs nor has she passed any stone debris. States urinary stream is good. Denies any dysuria or gross hematuria. States she had a partial colectomy performed in July 2023 r/t carcinoma. Joi Yu NP, [address], [place], [address], [place] [facility] [place] [facility] [place] 12/04/2023 10:45:21 05/12/2024 text/html Generic HPI TemplateReported by Patient Ms. Carol Rush is an 84 y/o F who is referred to clinic for evaluation. In March 2024, she developed the acute onset of severe left facial pain. The pain was intermittent, severe, sharp, electric pain. She saw her PCP and was prescribed Tramadol and has taken this and Tylenol and took a course of Prednisone and Acyclovir. Pain has subsided. She is now having frequent neck pain. Germain Cunningham M.D [address] [place] [address], [address], [place], [address], [place] [facility] [place] 05/12/2024 14:06:23 OBGyn Episode No OBEpisode recorded.
--- OUTSIDE RECORDS SUMMARY | 2025-01-19 15:53 | XMS_ITS | Clinical Summary ---
Author Organization Healthcare Address [address] [place] [address] Care Team Providers Care Reproductive Healthcare Assistant Name Role Phone Dre William MD Primary Care Provider [phone] Allergies No known active allergies Medications Aspirin Buf,CaCarb-MgCa rb-MgO, 81 MG tablet 6 Active calcium carbonate-vitam in D 600-400 MG-UNIT tablet 6 Active famotidine (Pepcid) 40 MG tablet TAKE 1 TABLET 1 TIME EACH DAY 1 Active OneTouch Ultra test strip USE TO TEST BLOOD SUGAR 2 TIMES EACH DAY. 1 Active glyBURIDE (Diabeta) 2.5 MG tablet TAKE 1 TABLET 1 TIME EACH DAY 1 Active lisinopril 40 MG tablet TAKE 1 TABLET 1 TIME EACH DAY FOR BLOOD PRESSURE 1 Active metoprolol succinate XL (Toprol-XL) 100 MG 24 hr tablet Take 0.5 tablets (50 mg) by mouth 1 (one) time each day. 1 Active omeprazole (PriLOSEC) [address] capsule TAKE 1 CAPSULE 1 TIME EACH DAY 1 Active simvastatin (Zocor) 10 MG tablet TAKE 1 TABLET 1 TIME EACH DAY 1 Active ocular lubricant ointment (GenTeal Tears Night-Time) ointment ophthalmic ointment Apply 1 drop to both eyes every night. Active Lancets (OneTouch Delica Plus [id number]) misc USE TO TEST BLOOD SUGAR ONCE OR TWICE A DAY. 2 Active methocarbamol (Robaxin) 500 MG tablet TAKE 1 TABLET 3 TIMES EACH DAY NEEDED FOR MUSCLE SPASMS 1 Active Multiple Vitamins-Minera ls (multivitamin with minerals) tablet Take 1 tablet by mouth 1 (one) time each day. Active multivitamin-mi nerals-folic acid-coenzyme q10 (Preservision AREDS 2) capsule Take 1 capsule by mouth 1 (one) time each day. Active doxycycline (Vibramycin) 100 MG capsule Take 1 capsule (100 mg) by mouth 1 (one) time each day. Take with food and at least 8 ounces (large glass) of water, do not lie down for 30 minutes after. Avoid Dairy within 30 minutes of dose. May sunburn more easily 30 capsule 3 4 Active fluorometholone (FML) 0.1 % ophthalmic suspension 1 drop to affected eye(s) 2x/day for 2 weeks then 1x/day for 2 weeks 5 mL 4 Active Additional Information Patient not taking.Reported on 06/30/2024 Probiotic Product (PROBIOTIC BLEND PO) Take by mouth 1 (one) time each day. Active Ferrous Sulfate ER 45 MG tablet controlled-rele ase Take by mouth. Activ e acyclovir (Zovirax) 800 MG tablet TAKE 1 TABLET 3 TIMES EACH DAY FOR 7 DAYS 5 Active predniSONE (Deltasone) 10 MG tablet TAKE 1 TABLET 2 TIMES EACH DAY WITH BREAKFAST AMD DINNER FOR 10 DAYS 5 Active traMADol (Ultram) 50 MG tablet Take 1 tablet (50 mg) by mouth every 6 hours as needed. 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 01/16/2022 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 03/14/2021 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 Dry eye syndrome of both eyes 03/01/2021 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 03/01/2021 After cataract of both eyes not obscuring vision 03/01/2021 Pseudophakia of both eyes 03/01/2021 Chronic dryness of both eyes 05/20/2018 Type 2 diabetes mellitus 05/16/2017 Age-related macular degeneration, dry, both eyes 05/16/2017 Sleep disturbance 03/04/2017 Neck pain 03/04/2017 Low back pain 03/04/2017 Chronic pain 03/04/2017 Chronic fatigue 03/04/2017 Resolved Problems Problem Noted Date Diagnosed Date Resolved Date Branch retinal vein occlusio n of left eye with macular edema 04/22/2023 04/22/2023 Cough 02/14/2022 01/03/2025 Encounters Date Type Department Care Team Description 12/07/2024 12:45 PM EDT Procedure Visit [facility] [address] [place] [address] King Sánchez MD Exudative age-related macular degeneration of both eyes with active choroidal neovascularization (CMS/HCC) (Primary Dx); Branch retinal vein occlusion of left eye with macular edema; Pseudophakia of both eyes 12/07/2024 7:40 AM EDT Ancillary Procedure [facility] [address] [place] [address] 12/07/2024 Travel 10/20/2024 8:45 AM EDT Procedure Visit [facility] [address] [place] [address] King Sánchez MD Exudative age-related macular degeneration of both eyes with active choroidal neovascularization (CMS/HCC) (Primary Dx); Branch retinal vein occlusion of left eye with macular edema; Pseudophakia of both eyes 10/20/2024 7:35 AM EDT Ancillary Procedure [facility] [address] [place] [phone] 10/20/2024 Travel from Last 3 Months Immunizations Immunization Administration Dates Next Due Influenza, high-dose, quadrivalent 01/29/2023,,01/13/2020 Influenza, injectable, quadr ivalent, preservative free 03/03/2018 Pneumococcal 20-trent Conj Vaccine 02/04/2023 Family History Medical History Relation Name Comments Cardiac disorder Other 1 Diabetes Other 2 Glaucoma Other 3 Hypertension Other 4 Other cancer Other 5 Relation Name Status Comments Other 1 Other 2 Other 3 Other 4 Other 5 Social History Tobacco Use Types Packs/Day Years Used Date Smoking Tobacco: Never Passive Smoke Exposure: Never Smokeless Tobacco: Never Tobacco Cessation:Counseling Given: No Alcohol Use Standard Drinks/Week Comments No 0 (1 standard drink = 0.6 oz pur e alcohol) Comments Unknown Sex and Gender Information Value Date Recorded Sex Assigned at Not on file Legal Sex Female 7:52 PM EDT Gender Identity Not on file Sexual Orientation Not on file Last Filed Vital Signs Vital Sign Reading Time Taken Comments Blood Pressure - - Pulse - - Temperature - - Respiratory Rate - - Oxygen Saturation - - Inhaled Oxygen Concentration - - Weight 77.6 kg (171 lb 1.2 oz) 03/04/2017 9:13 A M EST Height 157.5 cm (5' 2 ) 03/04/2017 9:13 AM EST Body Mass Index 31.29 03/04/2017 9:13 AM EST Plan of Treatment Upcoming Encounters Date Type Department Care Team (Late st Contact Info) Description 02/08/2025 12:45 PM EDT Procedure Visit [facility] [address] [place] [address] King Sánchez MD [address] [phone] Health Maintenance Due Date Last Done Comments [facility]-Depression Screening 1939 [facility]-Diabetes: Hemoglobin A1C 1939 [facility]-Medicare Annual Wellness (AWV) 1939 [facility]-/Child/Adol SDOH Screenings 1939 Diabetes: Dental Exam 1949 [facility]- SDOH Screenings 1957 [facility]-Adult SDOH Screenings 1957 [facility]-DTaP,Tdap,and Td Vaccines (1 - Tdap) 1958 [facility]-Zoster Vaccines (1 of 2) 1958 [facility]-RSV Vaccine: 60+ Years or (1 - 1-dose 75+ series) 2014 [id number] Vaccine ( - season) 2024 02/06/2022, 01/12/2021, 06/09/2020, Additional history exists [facility]-Influenza Vaccine (#1) 12/14/202401/29, 02/01/2021, 01/13/2020, Additional history exists [facility]-Bone Density Scan 10/19/2026 10/19/2024 [facility]-Pneumococcal Vaccine: 50+ Years Completed 02/04/2023 HPV Vaccines Aged Out No longer eligi ble based on patient's age to complete this topic [facility]-HIB Vaccines Aged Out No longer e ligible based on patient's age to complete this topic [facility]-Hepatitis A Vaccines Aged Out No longer eligible based on patient's age to complete this topic [facility]-IPV Vaccines Aged Out No longer e ligible based on patient's age to complete this topic [facility]-Rotavirus Vaccines Aged Out No lo nger eligible based on patient's age to complete this topic Procedures Procedure Name Priority Date/Time Associated Diagnosis Comments INTRAVITREAL INJECTION, PHARMACOLOGIC AGENT - OU - BOTH EYES Routine 12/07/2024 1:20 PM EDT Exudative age-related macular degeneration of both eyes with active choroidal neovascularization (CMS/HCC) OCT, RETINA - OU - BOTH EYES Routine 12/07/2024 1:08 PM EDT Exudative age-related macular degeneration of both eyes with active choroidal neovascularization (CMS/HCC) INTRAVITREAL INJECTION, PHARMACOLOGIC AGENT - OU - BOTH EYES Routine 10/20/2024 10:29 AM EDT Exudative age-related macular degeneration of both eyes with active choroidal neovascularization (CMS/HCC) OCT, RETINA - OU - BOTH EYES Routine 10/20/2024 10:19 AM EDT Exudative age-related macular degeneration of both eyes with active choroidal neovascularization ([facility]) from Last 3 Months Results * Intravitreal Injection, Pharmacologic Agent - [...] MG/0.07ML Route: Intravitreal, Site: Right Eye NDC: 13700-557-82, Lot: [id number], Expiration date: 06/12/2025, Waste: 0 mL Left Eye Preparation included 5% betadine to ocular surface. A 30 gauge needle was used. Injection: 8 mg Aflibercept 8 MG/0.07ML Route: Intravitreal, Site: Left Eye NDC: 60897-995-33, Lot: [id number], Expiration date: 07/13/2025, Waste: 0 mL Post-op [...] Post injection medications were not given. Notes us King Sánchez MD OPHTH CLINIC PROCEDURES Final [...] Both eyes (OU) Incomplete outer retinal atrophy us King Sánchez MD OPH TOMOGRAPHY Final Result * Intravitreal Injection, Pharmacologic Agent - OU - Both Eyes (10/20/2024 10:29 AM EDT) Anatomical Region Laterality Modality Head Other Narrative 10/20/2024 10:29 AM EDT Time Out 10/20/2024. 10:29 AM. Confirmed correct patient, procedure, site, and patient consented. Anesthesia Right Eye Topical anesthesia was used. Anesthetic medications included Proparacaine 0.5%. Left Eye Topical anesthesia was used. Anesthetic medications included Proparacaine 0.5%. Procedure Right Eye Preparation included 5% betadine to ocular surface. A 30 gauge needle was used. Injection: 8 mg Aflibercept 8 MG/0.07ML Route: Intravitreal, Site: Right Eye NDC: 92320-572-89, Lot: [id number], Expiration date: 06/12/2025, Waste: 0 mL Left Eye Preparation included 5% betadine to ocular surface. A 30 gauge needle was used. Injection: 8 mg Aflibercept 8 MG/0.07ML Route: Intravitreal, Site: Left Eye NDC: 82396-001-30, Lot: [id number], Expiration date: 06/12/2025, Waste: 0 mL Post-op Right Eye Post [...] were not given. Notes King Sánchez MD OPH CLINIC PROCEDURES Final R esult * OCT, Retina - OU - Both Eyes (10/20/2024 10:19 AM EDT) Anatomical Region Laterality Modality Head Optical Coherenc e Tomography Narrative 10/20/2024 10:19 AM EDT Right Eye Quality was good. Scan locations included subfoveal. Progression has improved. Left Eye Quality was good. Scan locations included subfoveal. Progression has improved. Notes Right eye central FVPED with resolved Subretinal Hyper Reflective material, improved IRF, several drusen and reticular drusen. Left eye (OS) Several drusen and reticular drusen, resolved Intraretinal fluid, increased Subretinal Hyper Reflective material Both eyes (OU) Incomplete outer retinal atrophy us King Sánchez MD OPHTH TOMOGRAPHY Final Result from Last 3 Months Insurance [facility] MEDICARE Care Teams Reproductive Healthcare Assistant Relationship Specialty Start Date End Date Dre William MD [address] [place] [address] PCP - General 08/26/20
--- OUTSIDE RECORDS SUMMARY | 2025-01-19 15:53 | XMS_ITS | Encounter Summary ---
Author Organization [facility] Address [address] [place] [address] Care Team Providers Care Corporate Development Officer Name Role Phone Dre William MD Primary Care Provider [phone] Encounter Details Date Type Department Care Team (Latest Contact Info) Description 12/07/2024 Travel Social History Tobacco Use Types Packs/Day [...] Description 02/08/2025 12:45 PM EDT Procedure Visit [facility] [address] [place] [address] King Sánchez MD [address] [address] documented as of this encounter Visit Diagnoses Not on filedocumented in this encounter Additional Health Concerns Assessment Noted Time A fall risk assessment has been complete d for the patient 10/20/2024 9:12 AM EDT A Body Mass Index follow-up plan has been documented for the patient 12/07/2024 1:20 PM EDT documented as of this encounter Care Teams Corporate Development Officer Relationship Specialty Start Date End Date Dre William MD [address] [place] [address] PCP - General 08/26/20 documented as of this encounter
--- OUTSIDE RECORDS SUMMARY | 2025-01-19 15:53 | XMS_ITS | Encounter Summary ---
Author Organization [facility] ([place], [place], [place], [place]) Address [address] [place] [address] Care Team Providers Care Table Attendant Name Role Phone Dre William MD Primary Care Provider [phone] Fallon Galeas RN Unavailable Unavailable Marilee Angeles MD Unavailable [phone] Keisha Tolentino APRN Primary Care Provider [phone] Reason for Referral * Diagnostic X-Ray (Routine) - Closed Specialty Diagnoses / Procedures Referred By Contac t Referred To Contact Diagnoses Personal history of urinary calculi Procedures XR KUB PORTABLE Joi Yu APRN [address], [address] [address] Phone: tel: fax: Referral ID Status Reason Start Date Expiration Date Visits Re quested Visits Authorized [id number] Closed 06/05/2022 12/02/2022 1 1 Encounter Details Date Type Department Care Team (Late st Contact Info) Description 06/05/2022 Outside Orders [facility] Admitting [address] [place] [address] Joi Yu APRN [address] , [address] [place] [address] Personal history of urinary calculi (Primary Dx) Social History Tobacco Use Types Packs/Day Years Used Date Smoking Tobacco: Never Smokeless Tobacco: Never Alcohol Use Standard Drinks/Week Comments Never 0 (1 standard drink = 0.6 oz pur e alcohol) Comments Unknown Sex and Gender Information Value Date Recorded Sex Assigned at Female 05/29/2023 7:28 AM DETAIL DRAFTER Legal Sex Female 5:18 PM CDT Gender Identity Female 05/29/2023 7:28 AM DETAIL DRAFTER Sexual Orientation Not on file COVID-19 Exposure Response Date Recorded In the last 10 days, have yo u been in contact with someone who was confirmed or suspected to have Coronavirus/COVID-19? No / Unsure 06/05/2022 11:16 AM EST documented as of this encounter Plan of Treatment Upcoming Encounters Date Type Department Care Team (Late st Contact Info) Description 03/01/2025 10:00 AM EST Appointment [facility] Ultrasound [address] [place] [address] Guero Ocampo MD [address] [facility] [address] [place] [address] 03/23/2025 10:30 AM EST Office Visit [facility] Gastroenterology [address] [place] [address] Guero Ocampo MD [address] [facility] [address] [place] [address] 04/19/2025 1:45 PM EST Office Visit [facility] Primary Care - [facility] [address] [place] [address] Keisha Tolentino APRN [address] [place] [address] 07/19/2025 11:00 AM EDT Office Visit [facility] Cardiology - [place] [address] [place] [address] Silverio Victor MD [address] [facility] [address] [place] [address] documented as of this encounter Results * XR KUB PORTABLE (06/05/2022 11:25 AM EST) Anatomical Region Laterality Modality Abdomen X-Ray 06/05/2022 12:2 1 PM EST Impressions 06/05/2022 12:35 PM EST Constipation. Images reviewed, interpreted, and dictated by Dr. Katiuska Wilson. Transcribed by Bob Garcia PA-C Narrative 06/05/2022 12:35 PM EST ABDOMEN HISTORY: Nephrolithiasis . COMPARISON:None. FINDINGS: A single view of the abdomen demonstrates a nonspecific bowel gas pattern. There is large amount of stool throughout the abdomen.No convincing renal or ureteral stone is identified. Pelvic calcifications likely represent phleboliths.. Procedure Note Katiuska Wilson MD - 06/05/2022 ABDOMEN HISTORY: Nephrolithiasis . COMPARISON:None. FINDINGS: A single view of the abdomen demonstrates a nonspecific bowel gas pattern. There is large amount of stool throughout the abdomen.No convincing renal or ureteral stone is identified. Pelvic calcifications likely represent phleboliths.. IMPRESSION: Constipation. Images reviewed, interpreted, and dictated by Dr. Katiuska Wilson. Transcribed by Bob Garcia PA-C Joi Yu APRN IM DIAGNOSTIC IMAGING ORD ERABLES Final Result documented in this encounter Visit Diagnoses Diagnosis Personal history of urinary calculi- Primary Personal history of urinary calculi documented in this encounter Care Teams Table Attendant Relationship Specialty Start Date End Date Dre William MD PCP - General Family Medicine 01/08/22 07/14/24 Keisha Tolentino APRN [address] [place] [address] PCP - General Family Medicine 07/15/24 Fallon Galeas, RN Nurse Navigator Oncology 08/19/23 10/23/23 Marilee Angeles MD [address] [place] [address] Medical Oncologist Hematology and Oncology 08/19/23 documented as of this encounter
--- OUTSIDE RECORDS SUMMARY | 2025-01-19 15:53 | XMS_ITS | Clinical Summary ---
Author Organization [facility] Address [address] [place] [address] Care Team Providers Care Heating And Blending Supervisor Name Role Phone Dre William MD Primary Care Provider [phone] Allergies No known active allergies Medications methylPREDNISolone (MEDROL) 4 MG dose pack Take as directed on package instructions. 1 each 2 Active methocarbamol (ROBAXIN) 500 MG tablet Take 1 tablet by mouth 4 (Four) Times a Day As Needed for Muscle Spasms for up to 24 doses. 24 tablet 2 Active HYDROcodone-acetam inophen (NORCO) 5-325 MG per tabletIndications: Lumbar radiculopathy Take 1 tablet by mouth Every 6 (Six) Hours As Needed for Moderate Pain for up to 15 doses. 15 tablet 2 Active Social History Tobacco Use Types Packs/Day Years Used Date Smoking Tobacco: Never Assessed Abuse Screen Answer Date Recorded Unsafe at Home or Work/School Not on file Feels Threatened by Someone? Not on file Does Anyone Keep You from Co ntacting Others or Doint Things Outside the Home? Not on file 01/25/2023 Physical Sign of Abuse Present Not on file 1 Housing Stability Answer Date Recorded Current Living Arrangements Not on file 01/13 Potentially Unsafe Housing Conditions Not on nelson e 01/25/2023 Family and Community Support Answer Kip e Recorded Help with Day-to-Day Activities Not on file 01/25/2023 Lonely or Isolated Not on file 01/25/2023 Employment Answer Date Recorded Do you want help finding or keeping work or a lydia b? Not on file 01/25/2023 Disabilities Answer Date Recorded Concentrating, Remembering, or Making Decisions Difficulty Not on file 01/25/2023 Doing Errands Independently Difficulty Not on fi le 01/25/2023 Education Answer Date Recorded Help with school or training? Not on file Preferred Language Not on file 01/25/2023 Comments No Sex and Gender Information Value Date Recorded Sex Assigned at Not on file Legal Sex Female 12:12 PM EDT Gender Identity Not on file Sexual Orientation Not on file Last Filed Vital Signs Vital Sign Reading Time Taken Comments Blood Pressure 149/77 10/18/2021 12:13 PM EDT Pulse 72 10/18/2021 12:13 PM EDT Temperature 36.9 C (98.5 F) 10/18/2021 12:13 PM EDT Respiratory Rate 20 10/18/2021 12:13 PM EDT Oxygen Saturation 96% 10/18/2021 12:13 PM EDT Inhaled Oxygen Concentration - - Weight 75.8 kg (167 lb) 10/18/2021 12:13 PM EDT Height 157.5 cm (5' 2 ) 10/18/2021 12:13 PM EDT Body Mass Index 30.54 10/18/2021 12:13 PM EDT Plan of Treatment Health Maintenance Due Date Last Done Comments ANNUAL PHYSICAL 1940 DXA SCAN 1940 TDAP/TD VACCINES (1 - Tdap) 1958 Pneumococcal Vaccine 50+ (1 of 1 - PCV) 1989 ZOSTER VACCINE (1 of 2) 1989 RSV Vaccine - Adults (1 - 1- dose 75+ series) 2014 INFLUENZA VACCINE 11/13/2024 02/01/2021, , 01/21/2019 COVID-19 Vaccine ( season) 2024 01/12/2021, 06/09/2020, 05/12/2020 Insurance [facility] MEDICARE REPLACE Care Teams Heating And Blending Supervisor Relationship Specialty Start Date End Date Dre William MD [address] [place] [address] PCP - General Family Medicine 10/18/21
--- OUTSIDE RECORDS SUMMARY | 2025-01-19 15:53 | XMS_ITS | Encounter Summary ---
Author Organization [employer] ([place], [place], [place], [place]) Address [address] [place] [address] Care Team Providers Care Vinyl Flooring Installer Name Role Phone Dre William MD Primary Care Provider [phone] Marilee Angeles MD Unavailable [phone] Keisha Tolentino APRN Primary Care Provider [phone] Reason for Visit * Reason Onset Date Comments Medication Refill 07/01/2024 Encounter Details Date Type Department Care Team (Late st Contact Info) Description 07/01/2024 Telephone [facility] Primary Care - [facility] [address] [place] [address] Dre William MD [address] [place] [address] Medication Refill Social History Tobacco Use Types Packs/Day Years [...] Do you speak a language other than Brazilian at [facility]? No 07/26/2023 Do you want help with [...] Sex Assigned at Female 05/29/2023 7:28 AM TECHNICAL FELLOW Legal Sex Female 5:18 PM CDT Gender Identity Female 05/29/2023 7:28 AM TECHNICAL FELLOW Sexual Orientation Not on file documented as of this encounter Miscellaneous Notes * Telephone Encounter - Jace Emery - 07/01/2024 3:21 PM EDT Called and advised patients daughter that her mothers lancets and test strips into pharmacy. * Telephone Encounter - Jace Emery - 07/01/2024 3:19 PM EDT Lancets and strips sent to pharmacy. * Telephone Encounter - Brady Pulido - 07/01/2024 2:06 PM EDT FROM: Sintia Del Valle CSN: TO: [facility] 7 CLINICAL CHIEF CLERK [[id number]] SUBJECT: Medication Related Request PROVIDER: DRE WILLIAM [[id number]] DEPARTMENT: [facility] [[id number]] ENCOUNTER REASON FOR CALL: MEDICATION REFILL [[id number]] ENCOUNTER TYPE: Telephone REASON FOR CALL: Refill request APPOINTMENT OFFERED? No LAST VISIT DATE IS NOT APPLICABLE: Yes NEXT VISIT DATE IS NOT APPLICABLE: Yes MESSAGE PRIORITY: High ADDITIONAL INFORMATION: pharmacy called stating patient needs a refill MEDICATION 1: MEDICATION TYPE: Non controlled RX MEDICATION NAME: One Touch Ultra Test Strips and One Touch Delica Lancets PREFERRED PHARMACY? [facility] [address] [address] CALLER'S NAME: Sabine RELATION TO PATIENT: [facility] [0] PREFERRED LANGUAGE: Brazilian BEST CALL BACK PHONE NUMBER: Home Phone: ([phone]) WHAT IS THE BEST WAY FOR THE OFFICE TO CONTACT YOU?: OK to leave message on voicemail documented in this encounter Plan of Treatment Upcoming Encounters Date Type Department Care Team (Late st Contact Info) Description 03/01/2025 10:00 AM EST Appointment [facility] Ultrasound [address] [place] [address] Guero Ocampo MD [address] [facility] [address] [place] [address] 03/23/2025 10:30 AM EST Office Visit [facility] Gastroenterology [address] [place] [phone] Guero Ocampo MD [address] [facility] [address] [place], [place] [id number] 04/19/2025 1:45 PM EST Office Visit [facility] Primary Care - [facility] [address] [place] [phone] Keisha Tolentino APRN [address] [place] [address] 07/19/2025 11:00 AM EDT Office Visit [facility] Cardiology - [place] [address] [place] [phone] Silverio Victor MD [address] [facility] [address] [place] [address] documented as of this encounter Visit Diagnoses Not on filedocumented in this encounter Care Teams Vinyl Flooring Installer Relationship Specialty Start Date End Date Dre William MD PCP - General Family Medicine 01/08/22 07/14/24 Keisha Tolentino APRN [address] [place] [address] PCP - General Family Medicine 07/15/24 Marilee Angeles MD [address] [place] [address] Medical Oncologist Hematology and Oncology 08/19/23 documented as of this encounter
--- NOTE | 2025-01-19 16:07 | CT_ITS ---
PROCEDURE INFORMATION: Exam: CT Head Without Contrast Exam date and time: 01/19/2025 4:58 PM Age: 84 years old Clinical indication: Injury or trauma; Fall; Blunt trauma (contusions or hematomas); Additional info: Fall, presyncope, head trauma TECHNIQUE: Imaging protocol: Computed tomography of the head without contrast. Radiation optimization: All CT scans at this facility use at least one of these dose optimization techniques: automated exposure control; mA and/or kV adjustment per patient size (includes targeted exams where dose is matched to clinical indication); or iterative reconstruction. COMPARISON: No relevant prior studies available. FINDINGS: Brain: Intracranial vascular calcification. Decreased attenuation of the supratentorial white matter is likely secondary to chronic microvascular ischemia. No acute intracranial hemorrhage. Cerebral ventricles: Ventricular and subarachnoid spaces are age appropriate. Paranasal sinuses: Visualized sinuses are unremarkable. No fluid levels. Mastoid air cells: Visualized mastoid air cells are well aerated. Bones: Unremarkable. No acute fracture. Soft tissues: Unremarkable. IMPRESSION: No acute intracranial abnormality.
--- NOTE | 2025-01-19 16:07 | XR_ITS ---
FINAL REPORT CLINICAL HISTORY: Syncope FINDINGS: A portable view of the chest was obtained. The heart is mildly enlarged. Left-sided pacemaker is identified. There is an opacity projecting in the right lower lung containing air, likely a hiatal hernia. There is right basilar atelectasis. There is no pleural effusion or pneumothorax. IMPRESSION: Large hiatal hernia and right basilar atelectasis. Reviewed, Interpreted and Dictated by Katiuska Wilson MD Transcribed by Cinthya Flores Authenticated and [facility]
--- NOTE | 2025-01-19 16:07 | CT_ITS ---
PROCEDURE INFORMATION: Exam: CT Cervical Spine Without Contrast Exam date and time: 01/19/2025 5:00 PM Age: 84 years old Clinical indication: Injury or trauma; Fall; Blunt trauma; Additional info: Fall, presyncope, head trauma/neck pain TECHNIQUE: Imaging protocol: Computed tomography of the cervical spine without contrast. Radiation optimization: All CT scans at this facility use at least one of these dose optimization techniques: automated exposure control; mA and/or kV adjustment per patient size (includes targeted exams where dose is matched to clinical indication); or iterative reconstruction. COMPARISON: CT HEAD/BRAIN WO CON 01/19/2025 4:58 PM FINDINGS: Bones: Trace anterolisthesis of C3 on C4. Vertebral body heights are preserved. [id number] degenerative change about the dens. Mild prevertebral osteophytosis. Bilateral facet joint degenerative change. No acute cervical spine fracture. Lungs: Lung apices are normal. Pleural spaces: No visible pneumothorax. Vasculature: Vascular calcification. Soft tissues: Unremarkable. IMPRESSION: No acute cervical spine fracture.
--- NOTE | 2025-01-19 16:08 | HMH.EDGENADL ---
Discharge Plan Disposition Patient Disposition: Home, Self-Care Referrals Follow up/Referrals: Keisha Tolentino APRN [Primary Care Provider, Medical] - See instructions Activity Restrictions/Add. Instructions Additional Instructions/Restrictions: Follow-up with your primary care physician as needed. If you develop any new or worsening symptoms, or if you become concerned for your health for any reason, return to the emergency department for evaluation. Avoid standing for long periods of time as this can cause you to pass out. Clinical Impressions Clinical Impression: Vasovagal near syncope Print Language Print Language: Kuwaiti Discharge ED Provider: Oliver Lugo General Adult HPI General Chief complaint: Fall Stated complaint: AO 10-7 second time passing out, head pain Time Seen by Provider: 01/19/25 15:59 Mode of Arrival: Ambulatory Source of Information: Patient Description of Symptoms (Recalled from ER Triage Doc. by RN): patient presents to the ED after a fall she took. lynne was at the [facility] of the [facility] in [place] when she stated i felt like i was getting hot, and then i passed out . patient stated she remembered passing out. patient was evaluated by staff there but felt the need to be evaluated in the ER. History of Present Illness HPI narrative: Carol Rush is an 84-year-old female with past medical history of diabetes, cardiac pacemaker not on aspirin or blood thinners who presents to the emergency department for complaints of an episode of presyncope and fall. Patient states that she was with a friend at a penitentiary open house and had been standing for a long period of time when she felt dizzy and fell backwards, hitting the left side of her head. She denies any loss of consciousness and remembers the whole episode. She states that they refused to let her get up. She denies any headache or vision changes. She states that her neck is a little bit sore but denies any pain in the middle of her neck. She denies any recent chest pain, shortness of breath, abdominal pain or recent illnesses. She feels like she is moving her arms and legs appropriately. Related Data Allergies Allergy/AdvReac Type Severity Reaction Status Date / Time No Known Allergies Allergy Unverified 04/02/17 14:14 [facility] Disclaimer: The information contained in this section may have been updated after the patient was seen, as this information can be updated by other users. Social History Smoking Status: Never smoker alcohol intake: never current occupational status: previously employed Travel in the last 8 weeks?: None ROS Obtained: Yes Systems reviewed as appropriate & no additional complaints except as documented Physical Exam General General appearance: alert and in no apparent distress Head Head exam: atraumatic and normocephalic Eye Eye exam: Present normal appearance, PERRL and EOMI ENT ENT exam: Present normal external ear exam Neck Neck exam: Present full ROM; Absent tenderness Chest Chest inspection: Present symmetric chest wall rise; Absent tenderness Respiratory Respiratory exam: Present normal lung sounds bilaterally; Absent respiratory distress, wheezes or stridor Cardiovascular Cardiovascular exam: Present regular rate and normal rhythm Abdominal Exam Abdominal exam: Present soft; Absent tenderness or guarding Extremities Exam Extremities exam: Present normal inspection Back Exam Back exam: Present normal inspection; Absent vertebral tenderness (No C/T/L-spine tenderness or step-off or deformity) Neurological Exam Neurological exam: Present alert, oriented X3 and CN II-XII intact; Absent motor sensory deficit Psychiatric Psychiatric exam: Present normal affect Skin Skin exam: Present warm and dry Medical Decision Making Medical Records Screening: Per USPSTF and CDC recommendations, given the prevalence of disease in our region, it is our hospital?s policy to screen for HIV and viral Hepatitis for all patients aged 18 and over and those with ongoing risk factors. Harvey Inquiry Pt receiving controlled substance: No Vital Signs: 01/19/25 15:33 01/19/25 19:38 Temperature 98.2 F 98.2 F Temperature Source Oral Oral Pulse Rate 71 Pulse Rate [Right Radial] 72 Respiratory Rate 18 15 Blood Pressure 155/73 H Blood Pressure [Right Arm] 175/71 H Blood Pressure Mean [Right Arm] 105 Blood Pressure Source Automatic Cuff Blood Pressure Source [Right Arm] Automatic Cuff Blood Pressure Position Sitting Blood Pressure Position [Right Arm] Sitting 02 Sat by Pulse Oximetry 98 Oxygen Delivery Method Room Air Room Air Lab Data Lab Results 01/19/25 16:19: WBC 4.2 L, RBC 3.29 L, Hgb 11.3 L, Hct 36.1 L, MCV 109.7 H, MCH 34.3 H, MCHC 31.3 L, RDW 12.8, Plt Count 89 L, MPV 11.4 H, Neut % (Auto) 39.6, Lymph % (Auto) 40.3, [place] % (Auto) 12.7 H, Eos % (Auto) 7.0, Baso % (Auto) 0.2, Neut # (Auto) 1.7 L, Lymph # (Auto) 1.7, [place] # (Auto) 0.5, Eos # (Auto) 0.3, Baso # (Auto) 0.0, Sodium 140, Potassium 4.8, Chloride 106, Carbon Dioxide 26, Anion Gap 12.8, BUN 40 H, Creatinine 1.10 H, Estimated Creat Clear 42, Estimated GFR 47 L, Est GFR ( Amer) 57 L, Glucose 143 H, Calcium 8.9, Magnesium 2.2, Total Bilirubin 0.6, AST 55 H, ALT 40, Alkaline Phosphatase 162 H, Troponin I < 0.01, NT-Pro-B Natriuret Pep 714 H, Total Protein 6.6, Albumin 3.6, Globulin 3.0, Albumin/Globulin Ratio 1.2, TSH < 0.02 L, Free T4 1.30 01/19/25 18:50: Urine Color Yellow, Urine Appearance Clear, Urine pH 5.5, Ur Specific Cook 1.015, Urine Protein Negative, Urine Glucose (UA) Negative, Urine Ketones Negative, Urine Blood Negative, Urine Nitrate Negative, Urine Bilirubin Negative, Urine Urobilinogen 0.2, Ur Leukocyte Esterase Negative, Urine RBC Occasional, Urine WBC 3-5, Ur Squamous Epith Cells 5-10, Urine Bacteria 1+, Urine Mucus 1+, Urine Yeast Occasional 01/19/25 16:19 01/19/25 16:19 Orders (Tests/Meds): ED MEDICATIONS Discontinued Medications Generic Name Dose Route Start Last Admin Trade Name Luis Eduardo PRN Reason Stop Dose Admin Iopamidol 70 ml 01/19/25 16:51 01/19/25 16:52 Iopamidol-370 (76%);100ml Bottle IV 01/19/25 16:52 70 ml ONCE ONE Administration Sodium Chloride 10 ml 01/19/25 16:51 01/19/25 16:53 Sodium Chloride 0.9% 10ml Syr (Rad Only) IV 02/18/25 16:50 10 ml NEEDED PRN Administration Maintain IV Site Sodium Chloride 50 ml 01/19/25 16:51 01/19/25 16:52 0.9 % Sodium Chloride 50 Ml Vial IV 01/19/25 16:52 50 ml ONCE ONE Administration ORDERS Category Date Time Status CT angio chest PE protocol Stat Cat Scan 01/19/25 16:[address] cervical spine wo con Stat Cat Scan 01/19/25 16:[address] head/brain wo con Stat Cat Scan 01/19/25 16:07 Completed CXR --portable [XR chest portable] Stat Exams 01/19/25 16:07 Completed BNP [NT Pro Brain Natriuretic Pep.] Stat Lab 01/19/25 16:19 Completed CBC w/Auto Diff [Complete Blood Count Auto Diff] Stat Lab 01/19/25 16:19 Completed CMP [Comprehensive Metabolic Panel] Stat Lab 01/19/25 16:19 Completed Free T4 (Free Thyroxine) Stat Lab 01/19/25 16:19 Completed Magnesium Stat Lab 01/19/25 16:19 Completed TSH [Thyroid Stimulating Hormone] Stat Lab 01/19/25 16:19 Completed Trop I [Troponin I] Stat Lab 01/19/25 16:19 Completed UA [Urinalysis and Microscopic] Stat Lab 01/19/25 18:50 Completed ECG Data Tracing #1: I reviewed this ECG and interpreted as documented below: Atrial paced rhythm. No ST elevation or depression. QTc of 434 Medical Decision Narrative: Carol Rush is an 84-year-old female with past medical history of diabetes, cardiac pacemaker not on aspirin or blood thinners who presents to the emergency department for complaints of an episode of presyncope and fall. Patient states that she was with a friend at a penitentiary open house and had been standing for a long period of time when she felt dizzy and fell backwards, hitting the left side of her head. She denies any loss of consciousness and remembers the whole episode. She states that they refused to let her get up. She denies any headache or vision changes. She states that her neck is a little bit sore but denies any pain in the middle of her neck. She denies any recent chest pain, shortness of breath, abdominal pain or recent illnesses. She feels like she is moving her arms and legs appropriately. On arrival, patient is hypertensive with blood pressure 175/71, heart rate within normal limits, afebrile, oxygen 98% on room air. Physical exam, stated above, revealed overall well-appearing female in no distress. She is alert, sitting upright in her chair, GCS 15. She has no focal neurological deficits. Pupils equal round reactive to light. Extraocular movements intact. Cardiopulmonary exam is unremarkable with no murmurs or rubs. No wheezing, rales or rhonchi. Abdomen is soft, nontender nondistended. She has no midline C/T/L-spine tenderness or step-offs. She has no chest wall tenderness. Differential diagnosis includes, but is not limited to: Vasovagal syncope, cardiac arrhythmia, electrolyte derangement, hypoglycemia, metabolic derangement such as hypothyroidism, intracranial hemorrhage, cervical spine fracture, among others. The most morbid conditions were considered and workup was based on these. Initial workup in the emergency department included: CT head without contrast, CT cervical spine without contrast, CBC with CMP, magnesium level, TSH/free T4, troponin, EKG, chest x-ray, NT proBNP EKG was interpreted by me personally. Atrial paced rhythm. No evidence of ischemia. See interpretation above Chest x-ray was interpreted by me personally. Patient has a lesion in the right lower lobe and could represent a cavitary lung lesion versus possible hiatal hernia, however it does appear more lateral as opposed to centrally located as expected with most hiatal hernias. Her diaphragm appears to be intact and appropriately positioned on the right. I spoke with patient about this and she does state that she has a history of hiatal hernia and had pneumonia when she was a child but has no known lung issues that she is aware of. She does state that recently, while walking to the mailbox, she did feel short of breath, which was abnormal for her. I discussed obtaining CT imaging of her chest to further investigate this possible lung lesion versus hernia vs PE as the source of her syncope episode she was in agreement to proceed with CT imaging of her chest. CT imaging of the head interpreted by me personally. No intracranial hemorrhage, mass or midline shift. CT cervical spine without evidence of spinal fracture or malalignment. CTA of the chest showed a large right sided hiatal hernia without PE or evidence of infection. See radiology reports for details. Laboratory studies shows a very mild leukopenia at 4.2, mild anemia at 11.3 and hematocrit of 36.1. Platelets are low at 89 but nonactionable. Electrolytes within normal limits. Very mild DARREN with creatinine of 1.10 and BUN of 40. Liver enzymes nonactionable. Initial troponin is at 0.01. NT proBNP very mildly elevated at 714. TSH is low at less than 0.02 but free T4 is normal at 1.3. Urinalysis without evidence of infection. On reassessment, patient remains in stable condition. She has had no recurrence of her symptoms here in the emergency department. Her workup today is unremarkable for any actionable pathology. I do feel that she is appropriate for discharge at this time. Strict return precautions were given. All questions were answered. She demonstrated understanding and was in agreement this plan. She was then discharged from the emergency department in stable condition. Critical Care Critical Care Time Critical Care Time: No
--- NOTE | 2025-01-19 16:22 | CT_ITS ---
PROCEDURE INFORMATION: Exam: CTA Chest With Contrast Exam date and time: 01/19/2025 5:02 PM Age: 84 years old Clinical indication: Abnormal findings; Abnormal radiologic exam of lung or chest; Additional info: Rll lesion, syncope TECHNIQUE: Imaging protocol: Computed tomographic angiography of the chest with contrast. Exam focused on the arteries. 3D rendering (Not supervised by radiologist): MIP and/or 3D reconstructed images were created by the technologist. Radiation optimization: All CT scans at this facility use at least one of these dose optimization techniques: automated exposure control; mA and/or kV adjustment per patient size (includes targeted exams where dose is matched to clinical indication); or iterative reconstruction. Contrast material: ISOVUE 370; Contrast volume: 70 ml; Contrast route: INTRAVENOUS (IV); COMPARISON: CR XR CHEST PORTABLE 01/19/2025 4:11 PM FINDINGS: Tubes, catheters and devices: A 2 lead internal cardiac device implanted at the left chest with leads extending to the right heart. Pulmonary arteries: No CT angiography evidence of pulmonary embolism. Aorta: Unremarkable. No aortic aneurysm. No aortic dissection. 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 Lungs: Right basilar opacities partially silhouette the diaphragm with loss of airspace favoring atelectasis. Pleural spaces: Unremarkable. No pneumothorax. No pleural effusion. Heart: Unremarkable. No cardiomegaly. No pericardial effusion. Coronary arteries: Moderate calcific atherosclerotic disease of the LAD is present. Lymph nodes: Unremarkable. No enlarged lymph nodes. Gallbladder and biliary ducts: There are surgical clips within the gallbladder fossa. Spleen: Multiple benign-appearing calcific densities of the spleen. Stomach: Large hiatal hernia with significant portion of the gastric body located at the lower mediastinum. Bones/joints: Unremarkable. No acute fracture. Soft tissues: Unremarkable. IMPRESSION: 1. Large hiatal hernia with significant portion of the gastric body located at the lower mediastinum. 2. Right basilar opacities partially silhouette the diaphragm with loss of airspace favoring atelectasis. 3. No CT angiography evidence of pulmonary embolism.
[2025-01-19 16:33] LABS: Hematocrit 36.1 % (37.0-47.0); Hemoglobin 11.3 g/dL (12.2-16.2); Immature Granulocytes % 0.2 %; Mean Corpuscular HGB Conc 31.3 g/dL (31.8-35.4); Mean Corpuscular Hemoglobin 34.3 pg (27.0-31.2); Mean Corpuscular Volume 109.7 fl (81-99); Nucleated Red Blood Cells % 0 %; Platelet Count 89 K/mm3 (142-424); Red Blood Count 3.29 M/mm3 (4.20-5.40); Red Cell Distribution Width-SD 51.9 fL; White Blood Count 4.2 K/mm3 (4.8-10.8)
[2025-01-19 16:41] LABS: Alanine Aminotransferase 40 U/L (12-78); Albumin Level 3.6 g/dl (3.5-5.0); Albumin/Globulin Ratio 1.2 (1.1-1.8); Alkaline Phosphatase 162 U/L (38-126); Anion Gap 12.8 mEq/L (5-15); Aspartate Amino Transferase 55 U/L (14-36); Bilirubin,Total 0.6 mg/dl (0.2-1.3); Blood Urea Nitrogen 40 mg/dl (7-17); Calcium 8.9 mg/dl (8.4-10.2); Carbon Dioxide 26 mmol/L (22.0-30.0); Chloride 106 mmol/L (98-107); Creatinine Clearance Estimated 42 mL/min (50-200); Creatinine,Serum 1.10 mg/dl (0.52-1.04); Estimated Glomerular Filt Rate 47 ml/min (>60); GFR (African American) 57 ML/MIN (>60); Globulin 3.0 g/dL (1.3-3.2); Glucose 143 mg/dl (74-100); Magnesium 2.2 mg/dl (1.6-2.3); Potassium 4.8 mmoL/L (3.5-5.1); Sodium 140 mmol/L (136-145); Total Protein,Serum 6.6 g/dl (6.3-8.2)
[2025-01-19] MEDS: 0.9 % SODIUM CHLORIDE 50 ML VIAL IV (16:52)
[2025-01-19] MEDS: IOPAMIDOL-370 (76%);100ML BOTTLE 70 ML IV (16:52)
[2025-01-19 16:53] LABS: NT Pro Brain Natriuretic Pep. 714 pg/mL (0-450)
[2025-01-19] MEDS: SODIUM CHLORIDE 0.9% 10ML SYR (RAD ONLY) 10 ML IV (16:53)
[2025-01-19 16:58] LABS: Free T4 (Free Thyroxine) 1.30 ng/dl (0.78-2.19)
[2025-01-19 17:04] LABS: Troponin I < 0.01 ng/ml (0.00-0.034)
[2025-01-19 17:12] LABS: Thyroid Stimulating Hormone < 0.02 uIU/mL (0.465-4.68)
[2025-01-19 18:53] LABS: Microscopic, Urine URINE MICROSCOPIC (MICROSCOPIC)
[2025-01-19 19:01] LABS: Bilirubin,Urine Negative (Negative); Color,Urine YELLOW (Yellow); Glucose,Urine (UA) Negative (Negative); Ketones,Urine Negative (Negative); Leukocyte Esterase,Urine Negative (Negative); PH,Urine 5.5 (5.0-8.5); Protein,Urine Negative (Negative); Specific Gravity, Urine 1.015 (1.005-1.030); Urobilinogen,Urine 0.2 EU/dl (0.2)
--- NOTE | 2025-01-19 19:29 | PC.NURSE ---
Assumed care of pt. Pt did not verbalize any additional needs at this time
[2025-01-19 19:38] VITALS: BP 155/73; PULSE 71; RESP 15; TEMP 36.8; O2SAT 98
[2025-01-19 20:07] LABS: Bacteria,Urine 1+ /lpf; RBC,Urine Occasional #/hpf (0-3)
[2025-01-19 20:08] LABS: Mucus,Urine 1+ /lpf
== END 2025-01-19 19:39 | disposition home or self-care (01) ==
PROVIDERS: Emergency Provider Student in an Organized Health Care Education/Training Program
DX: R55 Syncope and collapse (principal)
CPT/HCPCS: 70450; 71045; 71275; 72125; 80053; 81001; 83735; 83880; 84439; 84443; 84484; 85025; 93005; 99285; Q9967